=== PATIENT | female | born 1990 | race Caucasian/White ===

== ENCOUNTER 2017-11-05 15:55 | Emergency (ER) | payer OTHER ==
[~2017-11-05] VITALS: Ht 170.2 cm; Wt 52.3 kg
[2017-11-05 16:19] VITALS: Ht 170.2 cm; Wt 52.3 kg
[2017-11-05 17:41] LABS: BASO % 0.4 %; BASO ABS # 0.04 K/uL (0-0.2); COMPLETE YES; EOS % 1.1 %; HEMATOCRIT 42.4 % (37-47); IG% 0.1 %; LYMPH % 27.6 %; LYMPH ABS # 2.49 K/uL (1.2-3.4); MEAN CELL VOLUME 94.9 fL (80-100); MEAN CORPUSCULAR HEMOGLOBIN 32.2 pg (25-34); MEAN PLATELET VOLUME 9.3 fL (7.4-10.4); NEUT % 65.8 %; PLATELET COUNT 271 K/uL (130-400); RED BLOOD COUNT 4.47 M/uL (4.2-5.4); WHITE BLOOD COUNT 9.02 K/uL (4.8-10.8)
[2017-11-05 17:59] LABS: BUN/CREATININE RATIO 10.9 (10-20); CALCIUM 9.4 mg/dl (8.5-10.1); CREATININE 0.82 mg/dl (0.60-1.20); POTASSIUM 3.5 mmol/L (3.5-5.1)
[2017-11-05 18:03] LABS: ALB/GLOB RATIO 1.2 (0.9-2)
--- NOTE | 2017-11-05 18:11 | EMERGENCY ROOM VISIT NOTE ---
History First contact with patient: 17:02 Chief Complaint: OTHER COMPLAINT Stated Complaint: TNDR BREASTS W/ DISCHARGE, ABN PERIOD DISCHARGE History of Present Illness The patient is a 27 year old female who presents to the Emergency Room with complaints of discharge from her breasts and vaginal discharge that has been going on for several months. The patient finished breast-feeding in December of this year. She has had intermittent discharge and breast pain left breast greater than right since. She noticed some wetness in her bra intermittently. She denies any fever or chills. She is also able to express discharge from the left breast greater than right. She notes that it is milky in nature. 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 She also notes abnormal, more frequent periods for the last 3 months. Her last menstrual period was last week. She now notes some lucas colored discharge. This has also been intermittent over the last several months. She denies any pelvic pain/abdominal cramping. She is sexually active with one partner. She denies any dyspareunia. Review of Systems 10 system review performed and negative unless noted in HPI or below Past Medical/Surgical History Medical Problems: (1) Chronic low back pain Family History Hypertension Social History Smoking Status: Never Smoker Alcohol Use: occasionally Drug Use: none Marital Status: single Housing Status: lives with family Occupation Status: student Current/Historical Medications No Active Prescriptions or Reported Meds Physical Exam Vital Signs Date Time Temp Pulse Resp B/P (MAP) Pulse Ox O2 Delivery O2 Flow Rate FiO2 11/05/17 20:44 37.0 77 16 107/59 98 11/05/17 19:38 77 16 107/59 98 Room Air 11/05/17 16:19 37.0 89 20 148/91 96 Room Air Physical Exam VITALS: Vitals are noted on the nurse's note and reviewed by myself. Vital signs stable. GENERAL: 27-year-old female, in no acute distress, nondiaphoretic, well- developed well-nourished. SKIN: The skin was without rashes, erythema, edema, or bruising. HEAD: Normocephalic atraumatic. NECK: Supple without nuchal rigidity. No JVD. HEART: Regular rate and rhythm without murmurs gallops or rubs. LUNGS: Clear to auscultation bilaterally without wheezes, rales or rhonchi. No accessory muscle use. Breast exam: Approximately 0.5, cystic, circular, mobile mass noted at approximately 11:00 in the right breast. No masses noted in the left breast. Small amount of discharge, cream-colored in appearance from the left nipple. Small amount of clear discharge expressed from the right nipple. ABDOMEN: Positive bowel sounds x 4.Soft, nontender, without organomegaly. No guarding or rebound tenderness. : External genitalia free of any lesions. Speculum exam reveals a moderate amount of lucas colored discharge in the vaginal vault. Cervix is pink. The os is closed. Small amount of blood noted. Bimanual exam reveals no cervical motion tenderness. No masses on the adnexa bilaterally. No masses in the uterus palpated. MUSCULOSKELETAL: No muscle atrophy, erythema, or edema noted. Full range of motion in all extremities. No tenderness to palpation. Normal gait. Strength 5/5 throughout. NEURO: Patient was alert and oriented to person place and time. Normal sensation to touch. No focal neurological deficits. Medical Decision & Procedures ER Provider Diagnostic Interpretation: Pelvic ultrasound Patient Name: JULITO SMALLS Unit Number: [id number] Dictated: 11/05/171908 Transcribed: 11/05/171908 EV Printed Date/Time: [~ rep prt dt]/[~ rep prt tm] [~ rep ct labl] - [~ rep ct ivnm] [facility] [place] [address] Dictated: 11/05/171908 Transcribed: 11/05/171908 EV Printed Date/Time: [~ rep prt dt]/[~ rep prt tm] [~ rep ct labl] - [~ rep ct ivnm] IMPRESSION: 1. No acute sonographic abnormality is identified in the pelvis noting a retroverted uterus. 2. There is trace and likely physiologic free fluid in the cul-de-sac. Electronically signed by: Jigar Woodruff M.D. 11/05/2017 7:11 PM Dictated Date/Time: 11/05/2017 7:09 PM The status of this report is Signed. Draft = Not yet reviewed or approved by Radiologist. Signed = Reviewed and approved by Radiologist. <AttendingPhy></AttendingPhy> <FamilyPhy>No Doctor, Assigned</FamilyPhy> < PrimaryPhy>No Doctor, Assigned</PrimaryPhy> <UnitNumber>[id number]</UnitNumber> <VisitNumber>[id number]</VisitNumber> <PatientName>JULITO SMALLS</ PatientName> <DateOfBirth>1990</DateOfBirth> <Location>[facility]</Location> < ServiceDate>11/05/17</ServiceDate> <MNE>ESINDI</MNE> <OrderingPhy>Lucas Kraus M.D.</OrderingPhy> <OrderingPhyMNE>f rep ord dr guaman</OrderingPhyMNE> < DictatingPhyMNE>f rep dict dr guaman</DictatingPhyMNE> <CCListMNE>f rep ct sridhare</ CCListMNE> <AdmittingPhyMNE>f pt admit dr guaman</AdmittingPhyMNE> <AttendingPhyMNE >f pt attend dr guaman</AttendingPhyMNE> <ConsultingPhyMNE>f pt consult dr guaman</ConsultingPhyMNE> <FamilyPhyMNE>f pt fam dr guaman</FamilyPhyMNE> <OtherPhyMNE>f pt other dr guaman</OtherPhyMNE> < PrimaryPhyMNE>f pt prim care dr guaman</PrimaryPhyMNE> <ReferringPhyMNE>f pt referring dr guaman</ReferringPhyMNE> Laboratory Results 11/05/17 17:10 Red Blood Count 4.47, Mean Corpuscular Volume 94.9, Mean Corpuscular Hemoglobin 32.2, Mean Corpuscular Hemoglobin Concent 34.0, Mean Platelet Volume 9.3, Neutrophils (%) (Auto) 65.8, Lymphocytes (%) (Auto) 27.6, Monocytes (%) (Auto) 5.0, Eosinophils (%) (Auto) 1.1, Basophils (%) (Auto) 0.4, Neutrophils # (Auto) 5.93, Lymphocytes # (Auto) 2.49, Monocytes # (Auto) 0.45, Eosinophils # (Auto) 0.10, Basophils # (Auto) 0.04 11/05/17 17:10 Test 11/05/17 17:10 11/05/17 20:07 White Blood Count 9.02 K/uL (4.8-10.8) Red Blood Count 4.47 M/uL (4.2-5.4) Hemoglobin 14.4 g/dL (12.0-16.0) Hematocrit 42.4 % (37-47) Mean Corpuscular Volume 94.9 fL (80-100) Mean Corpuscular Hemoglobin 32.2 pg (25-34) Mean Corpuscular Hemoglobin Concent 34.0 g/dl (32-36) Platelet Count 271 K/uL (130-400) Mean Platelet Volume 9.3 fL (7.4-10.4) Neutrophils (%) (Auto) 65.8 % Lymphocytes (%) (Auto) 27.6 % Monocytes (%) (Auto) 5.0 % Eosinophils (%) (Auto) 1.1 % Basophils (%) (Auto) 0.4 % Neutrophils # (Auto) 5.93 K/uL (1.4-6.5) Lymphocytes # (Auto) 2.49 K/uL (1.2-3.4) Monocytes # (Auto) 0.45 K/uL (0.11-0.59) Eosinophils # (Auto) 0.10 K/uL (0-0.5) Basophils # (Auto) 0.04 K/uL (0-0.2) RDW Standard Deviation 44.3 fL (36.4-46.3) RDW Coefficient of Variation 12.9 % (11.5-14.5) Immature Granulocyte % (Auto) 0.1 % Immature Granulocyte # (Auto) 0.01 K/uL (0.00-0.02) Anion Gap 5.0 mmol/L (3-11) Est Creatinine Clear Calc Drug Dose 86.6 ml/min Estimated GFR () 115.3 Estimated GFR (Non- 99.5 BUN/Creatinine Ratio 10.9 (10-20) Calcium Level 9.4 mg/dl (8.5-10.1) Total Bilirubin 0.3 mg/dl (0.2-1) Aspartate Amino Transf (AST/SGOT) 16 U/L (15-37) Alanine Aminotransferase (ALT/SGPT) 30 U/L (12-78) Alkaline Phosphatase 96 U/L (45-117) Total Protein 8.6 gm/dl (6.4-8.2) Albumin 4.6 gm/dl (3.4-5.0) Globulin 4.0 gm/dl (2.5-4.0) Albumin/Globulin Ratio 1.2 (0.9-2) Thyroid Stimulating Hormone (TSH) 1.320 uIu/ml (0.300-4.500) Human Chorionic Gonadotropin, Qual NEG (NEG) Date/Time Source Procedure Growth Status 11/05/17 20:07 Cervix Swab Trichomonas Preparation - Final Complete ED Course Patient was seen and examined Vital signs including blood pressure were reviewed medications list was verified with patient Labs were obtained, and a saline lock was established A pelvic ultrasound was performed The workup was reviewed with the patient. She voiced understanding. She was comfortable being discharged home. I reviewed discharge instructions the patient. They voiced understanding and had no further questions. Of note, the patient tested positive for Trichomonas. The charge nurse was notified. She will be notified in the morning. A prescription for Flagyl 500 mg twice daily for 7 days will be called into her pharmacy. Medical Decision Differential diagnosis: Abnormal vaginal bleeding, menorrhagia, metrorrhagia, uterine fibroids, endometrial polyps, thyroid abnormality, breast mass, mastitis , PID This patient is a 27-year-old female that presents to the emergency department with breast discomfort, slight discharge left greater than right and vaginal discharge. She has also had abnormal vaginal bleeding. On exam, she had a small, circular palpable cyst at approximately 11:00 of the left breast. She had a small amount of discharge expressible from the nipples bilaterally. There are no signs of induration. The discharge was not purulent in nature. No significant tenderness. I do not suspect mastitis. Cultures of the discharge were taken. Her pelvic exam reveals a moderate amount of discharge. No foul odor was noted. The cervix does not appear erythematous or friable. Cultures were taken. A pelvic ultrasound did not show any acute abnormalities. After the patient was discharged, it was noted that she tested positive for Trichomonas. A note was made in her chart. She will be notified tomorrow morning. A prescription for Flagyl will also be called in. The patient did not have any cervical motion tenderness. I do not suspect PID. She will be informed that she needs to have her sexual partners treated. She will need to abstain from sexual activity until she finishes the course, and follows up with her doctor. This chart was completed in part utilizing [employer] Speech Voice Recognition software. Attempts were made to minimize the grammatical errors, random word insertions, pronoun errors and incomplete sentences. Any formal questions or concerns about the content, text or information contained within the body of this dictation should be directly addressed to the provider for clarification. Impression Primary Impression: Breast pain Additional Impression: Vaginal discharge Departure Information Dispostion Home / Self-Care Condition GOOD Prescriptions No Active Prescriptions or Reported Meds Referrals No Doctor, Assigned (PCP) Zeb Escobar MD Patient Instructions My [facility] Additional Instructions You were evaluated in the emergency department for discharge and breast pain. No significant abnormalities were noted on the ultrasound. Please take ibuprofen 600 mg every 8 hours as needed for discomfort You can try applying warm compresses for the breast pain. Please follow-up with your ONCOLOGY REP SPECIALIST as scheduled. If there are any abnormalities with your workup, you will be notified by phone Please do not hesitate to return to the emergency department with any new, worsening or concerning symptoms Problem Qualifiers
[2017-11-05 18:26] LABS: PREG INTERNAL NEGATIVE QC NEG CLEAR BACKGROUND; PREG INTERNAL POSITIVE QC POS CONTROL LINE
--- NOTE | 2017-11-05 19:13 | DIAGNOSTIC IMAGING REPORT ---
ULTRASOUND OF THE PELVIS CLINICAL HISTORY: Vaginal bleeding. COMPARISON STUDY: Pelvic CT dated 09/11/2015. TECHNIQUE: Real-time, grayscale, and color flow sonography of the pelvis is performed both transabdominally and endovaginally. Images are reviewed in the transverse and longitudinal planes. FINDINGS: Uterus: The retroverted uterus is normal in size and echotexture, measuring 8.3 x 4.2 x 5.1 cm. A nabothian cyst is incidentally noted in the cervix. Endometrium: The endometrium is normal in appearance, and the endometrial stripe is normal in thickness measuring up to 0.8 cm. Trace fluid is noted in the endometrial canal. Ovaries: The ovaries are normal in size and morphology. The right ovary measures 1.8 x 1.3 x 1.6 cm and the left ovary measures 4.2 x 1.9 x 2.8 cm. Numerous small follicles are seen bilaterally. Normal Doppler waveforms are shown within both ovaries. Pelvis: There is trace free fluid in the cul-de-sac. No concerning adnexal lesion is seen. IMPRESSION: 1. No acute sonographic abnormality is identified in the pelvis noting a retroverted uterus. 2. There is trace and likely physiologic free fluid in the cul-de-sac. Electronically signed by: Jigar Woodruff M.D. 11/05/2017 7:11 PM Dictated Date/Time: 11/05/2017 7:09 PM
[2017-11-05 20:44] VITALS: BP 107/59; PULSE 77; TEMP 37; O2SAT 98
--- NOTE | 2017-11-07 18:59 | Pharmacy Progress Note ---
ED Pharmacist Culture FollowUp Date of Service: Nov 07, 2017. Called patient regarding positive trichomonas. No answer - left message requesting call back and provided ED phone #.
[2017-11-08 02:42] LABS: CHLAMYDIA TRACH RNA*** NOT DETECTED (NOT DETECTED); GC (NEIS GONORRHOEAE)RNA** NOT DETECTED (NOT DETECTED)
== END 2017-11-05 20:45 | disposition home or self-care (01) ==
LOC: C.EDB 16:00 → C.EDA 20:45
DX: N64.4 Mastodynia (principal); N89.8 Other specified noninflammatory disorders of vagina; G89.29 Other chronic pain; M54.9 Dorsalgia, unspecified; Z82.49 Family history of ischemic heart disease and other diseases of the circulatory system

== ENCOUNTER 2017-12-14 19:23 | Emergency (ER) | payer OTHER ==
[~2017-12-14] VITALS: Ht 170.2 cm; Wt 54.7 kg
[2017-12-14 19:26] VITALS: BP 127/74; PULSE 94; TEMP 36.8; O2SAT 98; Ht 170.2 cm; Wt 54.7 kg
[2017-12-14] MEDS ORDERED: XYLOCAINE 1%/SOD BICARB 20 ML VIAL INFIL ONE (19:45)
[2017-12-14] MEDS ORDERED: CEPH500C PO (20:17)
[2017-12-14] MEDS ORDERED: CEPHALEXIN 500MG HOME PACK 1 EA BTL PO ONE (20:30)
--- NOTE | 2017-12-14 20:30 | EMERGENCY ROOM VISIT NOTE ---
History First contact with patient: 19:39 Chief Complaint: LACERATION/CUT (SUT/DERMABOND) Stated Complaint: CUT RIGHT INDEX FINGER Nursing Triage Summary: pt cut right index finger History of Present Illness The patient is a 27 year old female who presents to the Emergency Room with complaints of a laceration to her right ring finger. The patient reports that their front door has low clearance between the doorknob and window panel. You have to squeeze your hand between the doorknob and window to open the door. The patient reports that the glass shattered, and cut her hand. She does report moderate bleeding from the wound, and rates her discomfort a 5 out of 10 on my exam. The patient believes that her tetanus immunization is up-to-date within the past 10 years. The patient is [id number]. Review of Systems 10 system review was performed and was negative except for pertinent positives and negatives as indicated in history of present illness Past Medical/Surgical History Medical Problems: (1) Chronic low back pain (2) Tobacco Use Disorder Surgical Problems: (1) No history of previous surgery Family History Hypertension Social History Smoking Status: Former Smoker Alcohol Use: occasionally Drug Use: none Marital Status: single Housing Status: lives with family Occupation Status: student Current/Historical Medications Scheduled Cephalexin Monohydrate (Keflex), 500 MG PO TID Physical Exam Vital Signs Date Time Temp Pulse Resp B/P (MAP) Pulse Ox O2 Delivery O2 Flow Rate FiO2 18 19:26 36.8 94 19 127/74 98 Room Air Physical Exam CONSTITUTIONAL: Healthy and well nourished. Alert and oriented X 3 with positive affect. HEENT: Normocephalic, atraumatic. Pupils equal, round and reactive. NECK: Full active range of motion without discomfort. MUSCULOSKELETAL: Examination of the right ring finger shows an oval avulsion laceration over the dorsal PIP joint with moderate bleeding. The patient is very thin, and therefore does not have much tissue. The extensor tendon is exposed. I do not visualize any obvious tendon laceration. Capillary refill is less than 2 seconds. The oval laceration avulsion measures approximately 6 x 9 mm INTEGUMENTARY: No rash or other significant dermatologic conditions noted. NEUROLOGIC: No focal neurologic deficits noted. Right ring finger is sensory intact. Medical Decision & Procedures Medications Administered Medications (Trade) Dose Ordered Sig/Yamilet Route Start Time Stop Time Status Last Admin Dose Admin Cephalexin Monohydrate (Keflex 500MG Home Pack) 1 homepack NOW ONCE PO 12/14/17 20:30 12/14/17 20:31 DC 12/14/17 20:23 1 HOMEPACK Procedure Wound and laceration evaluation was performed under local anesthesia after receiving verbal consent from the patient. Using buffered 1% lidocaine without epinephrine, good local anesthesia was administered. The peripheral tissue was cleansed with iodine, then the wound was copious a pressure irrigated with approximately 150 mL of normal saline. As indicated in the physical exam section, the patient has an oval avulsion laceration that uncovers the extensor tendon. The patient did have some active bleeding from the distal laceration margin. I attempted to use a 5-0 Vicryl simple interrupted suture, which did provide moderate hemostasis. The tendon was observed through full course of flexion and extension without any obvious laceration. I explained to the patient that the tendon must be covered, and in order to do so, the tissue will need a revision repair. For now, the wound was grossly approximated using 5-0 nylon simple interrupted sutures, and a metal splint with bacitracin dressing was applied with the finger in full extension. ED Course Patient history and physical exam were performed. Nurse's notes were reviewed. Vital signs were reviewed and were normal. I did ask our Manager [employer] to review the patient's office notes, and determined that her last tetanus booster was administered in 2011. As indicated in the previous sections, I am concerned for exposure of the extensor tendon secondary to soft tissue avulsion over the dorsal PIP joint. The wound was grossly approximated in order to provide coverage of the tendon. The patient was instructed to follow-up with Dr. Joya, hand surgeon for further tissue revision for better closure. She will also need to call her PCP for a referral. The patient was dispensed a home pack and prescription for Keflex antibiotics. She was instructed to avoid getting the wound wet. She was encouraged to keep the splint in place to keep the finger in a straight position. Ibuprofen and Tylenol as needed for pain. The patient was happy with plan of care, voiced understanding of all discharge instructions, and denied any pain at the time of discharge. Medical Decision Medication Reconcilliation Current Medication List: was personally reviewed by me Blood Pressure Screening Patient's blood pressure: Normal blood pressure Impression Primary Impression: Laceration of right ring finger with complication Departure Information Dispostion Home / Self-Care Prescriptions Cephalexin Monohydrate (Keflex) 500 Mg Cap 500 MG PO TID for 7 Days, #21 CAP Prov: Josué Raza PA 12/14/17 Referrals Jimmy Joya MD Forms HOME CARE DOCUMENTATION FORM, IMPORTANT VISIT INFORMATION Patient Instructions My [facility] Additional Instructions Keep wound covered with an antibiotic ointment and dressing. Wear metal splint to keep the finger in a straight position. Ice and elevate for swelling and pain. Ibuprofen 600 mg and/or Tylenol 500 mg every 8 hours as needed for pain. Complete Keflex antibiotics as prescribed. Follow-up with [facility] (Dr. Joya, hand surgeon) for further reevaluation and management - call tomorrow morning for an appointment. When you call their office, tell them that you have "a laceration that uncovered a tendon with limited skin coverage." You will also need to call your family doctor for a referral to [facility].
== END 2017-12-14 20:32 | disposition home or self-care (01) ==
LOC: C.EDB 19:24 → C.EDD 20:32
DX: S61.214A Laceration without foreign body of right ring finger without damage to nail, initial encounter (principal); W25.XXXA Contact with sharp glass, initial encounter; Z87.891 Personal history of nicotine dependence; Z82.49 Family history of ischemic heart disease and other diseases of the circulatory system

== ENCOUNTER 2018-02-23 21:00 | Emergency (ER) | payer OTHER ==
[~2018-02-23] VITALS: Ht 172.7 cm; Wt 56.8 kg
[2018-02-23 21:10] VITALS: TEMP 37.1; Ht 172.7 cm; Wt 56.8 kg
[2018-02-23] MEDS ORDERED: ACETAMINOPHEN 500 MG TAB PO STA (21:32)
[2018-02-23] MEDS ORDERED: SODIUM CHLORIDE 0.9% 1000ML 1,000 ML IV STA ×2 (21:32→23:54)
[2018-02-23] MEDS ORDERED: ONDANSETRON INJ 2 MG/ML 2 ML VIAL IV STA (21:32)
[2018-02-23 21:58] VITALS: O2SAT 99
[2018-02-23 22:08] LABS: BASO % 0.1 %; BASO ABS # 0.01 K/uL (0-0.2); HEMATOCRIT 27.4 % (37-47); HEMOGLOBIN 9.7 g/dL (12.0-16.0); IG# 0.03 K/uL (0.00-0.02); LYMPH ABS # 1.91 K/uL (1.2-3.4); MEAN CELL VOLUME 89.3 fL (80-100); MEAN CORPUSCULAR HEMOGLOBIN 31.6 pg (25-34); MEAN CORPUSCULAR HGB CONC 35.4 g/dl (32-36); MEAN PLATELET VOLUME 9.2 fL (7.4-10.4); MONO % 5.4 %; NEUT % 81.3 %; NEUT ABS # 11.99 K/uL (1.4-6.5); PLATELET COUNT 266 K/uL (130-400); RED CELL DISTRIBUTION WIDTH CV 12.5 % (11.5-14.5); RED CELL DISTRIBUTION WIDTH SD 40.5 fL (36.4-46.3); WHITE BLOOD COUNT 14.74 K/uL (4.8-10.8)
[2018-02-23 22:31] LABS: CALCIUM 8.6 mg/dl (8.5-10.1); CREATININE 0.65 mg/dl (0.60-1.20); POTASSIUM 3.7 mmol/L (3.5-5.1)
[2018-02-24 01:01] VITALS: BP 90/71; PULSE 112; O2SAT 100
--- NOTE | 2018-02-24 01:04 | EMERGENCY ROOM VISIT NOTE ---
History First contact with patient: 21:22 Chief Complaint: ABDOMINAL PAIN Stated Complaint: JUST FOUND OUT I WAS PREG,POSSIBLE MISCARRIAGE Nursing Triage Summary: patient states pain started yesterday evening. History of Present Illness The patient is a 27 year old female who presents to the Emergency Room with complaints of suprapubic cramping for the past 24 hours shortly after having intercourse with her fianc last night. She denies from intercourse. Patient then took a test today and was positive. Last menstrual cycle was January 14. She has had 3 prior pregnancies and 2 living children. She had a spontaneous in the past. No history of RhoGam. She states her blood type is O+. Patient denies vaginal bleeding, vaginal discharge, vaginal rashes , urinary symptoms, chest pain, dyspnea, fever, chills, cough, congestion. Patient feels anxious. Review of Systems An 10 system review of systems was completed with positives and pertinent negatives listed in the HPI. Past Medical/Surgical History Medical Problems: (1) Chronic low back pain (2) Tobacco Use Disorder Surgical Problems: (1) No history of previous surgery Family History Hypertension Social History Smoking Status: Never Smoker Alcohol Use: occasionally Drug Use: none Marital Status: in relationship Housing Status: lives with family Occupation Status: employed Current/Historical Medications No Active Prescriptions or Reported Meds Physical Exam Vital Signs Date Time Temp Pulse Resp B/P (MAP) Pulse Ox O2 Delivery O2 Flow Rate FiO2 02/24/18 00:32 102 02/23/18 23:24 113 18 118/68 98 Room Air 02/23/18 22:05 130 02/23/18 21:58 119 22 116/69 98 Room Air 02/23/18 21:58 99 Room Air 02/23/18 21:10 37.1 158 18 117/72 99 Room Air Physical Exam VITALS: Vitals are noted on the nurse's note and reviewed by myself. Vital signs tachycardic. GENERAL: Pleasant female anxious appearing, in no acute distress, nondiaphoretic , well-developed well-nourished. SKIN: The skin was without rashes, erythema, edema, or bruising. There is no tenting of the skin. Capillary reflex less than 2 seconds. HEAD: Normocephalic atraumatic. EARS: External auditory canals clear, tympanic membranes pearly wolfe without erythema or effusion bilaterally. EYES: Pupils equal round and reactive to light and accommodation. Conjunctivae without injection, sclerae without icterus. Extraocular movements intact. NOSE: Patent, turbinates without inflammation or discharge. MOUTH: Mucous membranes moist. Pharynx without erythema or exudate. Uvula midline. Airway patent. Tongue does not deviate. NECK: Supple without nuchal rigidity. No lymphadenopathy. No thyromegaly. Cervical spine is nontender. No JVD. HEART: Regular rate and rhythm without murmurs gallops or rubs. LUNGS: Clear to auscultation bilaterally without wheezes, rales or rhonchi. No retractions or accessory muscle use. ABDOMEN: Positive bowel sounds x 4. Normal tympanic percussion. Soft, minimally tender suprapubic region, without masses or organomegaly. Soto sign negative. No guarding or rebound tenderness. No CVA tenderness MUSCULOSKELETAL: No muscle atrophy, erythema, or edema noted. NEURO: Patient was alert and oriented to person place and time. Normal sensation to light and sharp touch. No focal neurological deficits. Medical Decision & Procedures Laboratory Results 02/23/18 21:50 Red Blood Count 3.07, Mean Corpuscular Volume 89.3, Mean Corpuscular Hemoglobin 31.6, Mean Corpuscular Hemoglobin Concent 35.4, Mean Platelet Volume 9.2, Neutrophils (%) (Auto) 81.3, Lymphocytes (%) (Auto) 13.0, Monocytes (%) (Auto) 5.4, Eosinophils (%) (Auto) 0.0, Basophils (%) (Auto) 0.1, Neutrophils # (Auto) 11.99, Lymphocytes # (Auto) 1.91, Monocytes # (Auto) 0.80, Eosinophils # (Auto) 0.00, Basophils # (Auto) 0.01 02/23/18 21:50 Test 02/23/18 21:50 White Blood Count 14.74 K/uL (4.8-10.8) Red Blood Count 3.07 M/uL (4.2-5.4) Hemoglobin 9.7 g/dL (12.0-16.0) Hematocrit 27.4 % (37-47) Mean Corpuscular Volume 89.3 fL (80-100) Mean Corpuscular Hemoglobin 31.6 pg (25-34) Mean Corpuscular Hemoglobin Concent 35.4 g/dl (32-36) Platelet Count 266 K/uL (130-400) Mean Platelet Volume 9.2 fL (7.4-10.4) Neutrophils (%) (Auto) 81.3 % Lymphocytes (%) (Auto) 13.0 % Monocytes (%) (Auto) 5.4 % Eosinophils (%) (Auto) 0.0 % Basophils (%) (Auto) 0.1 % Neutrophils # (Auto) 11.99 K/uL (1.4-6.5) Lymphocytes # (Auto) 1.91 K/uL (1.2-3.4) Monocytes # (Auto) 0.80 K/uL (0.11-0.59) Eosinophils # (Auto) 0.00 K/uL (0-0.5) Basophils # (Auto) 0.01 K/uL (0-0.2) RDW Standard Deviation 40.5 fL (36.4-46.3) RDW Coefficient of Variation 12.5 % (11.5-14.5) Immature Granulocyte % (Auto) 0.2 % Immature Granulocyte # (Auto) 0.03 K/uL (0.00-0.02) Urine Color YELLOW Urine Appearance CLEAR (CLEAR) Urine pH 6.5 (4.5-7.5) Urine Specific [place] 1.006 (1.000-1.030) Urine Protein NEG (NEG) Urine Glucose (UA) NEG (NEG) Urine Ketones NEG (NEG) Urine Occult Blood NEG (NEG) Urine Nitrite NEG (NEG) Urine Bilirubin NEG (NEG) Urine Urobilinogen NEG (NEG) Urine Leukocyte Esterase NEG (NEG) Anion Gap 8.0 mmol/L (3-11) Est Creatinine Clear Calc Drug Dose 118.6 ml/min Estimated GFR () 143.0 Estimated GFR (Non- 123.4 BUN/Creatinine Ratio 16.0 (10-20) Calcium Level 8.6 mg/dl (8.5-10.1) Human Chorionic Gonadotropin, Quant 1153 mIU/mL Medications Administered Medications (Trade) Dose Ordered Sig/Yamilet Route Start Time Stop Time Status Last Admin Dose Admin Sodium Chloride 1,000 ml @ 999 mls/hr Q1H1M STAT IV 02/23/18 21:32 02/23/18 22:32 DC 02/23/18 22:02 999 MLS/HR Ondansetron HCl (Zofran Inj) 4 mg NOW STAT IV 02/23/18 21:32 02/23/18 21:34 DC 02/23/18 22:02 4 MG Acetaminophen (Tylenol Tab) 1,000 mg NOW STAT PO 02/23/18 21:32 02/23/18 21:34 DC 02/23/18 22:03 1,000 MG Sodium Chloride 1,000 ml @ 999 mls/hr Q1H1M STAT IV 02/23/18 23:54 02/24/18 00:54 DC 02/23/18 23:54 999 MLS/HR ED Course Prior records/ancillary studies reviewed. Triage Nursing notes reviewed. Additional history obtained from the family. The patient's history was concerning for positive home test with suprapubic abdominal pain. Differential diagnosis: Etiologies such as ectopic , salpingitis, ,incomplete , septic , ruptured ovarian cyst, ovarian torsion, Mittelschmerz, endometritis, dysmenorrhea, appendicitis, PID, As well as others were entertained. Physical examination: As above. Vitals signs revealed tachycardic. ER treatment provided: IV fluids, Zofran, Tylenol On reassessment the patient felt better. Diagnostic interpretation by me: Mild anemia and no other worrisome electrolyte abnormalities. Urinalysis revealed no sign of infection. Quantitative hCG was 1100 Imaging studies: Ultrasound as above US OB/ENDOVAG: Tiny round anechoic lesion seen within the endometrium which may represent an early IUP, which is too small to accurately date. Moderate amount of free fluid in the pelvis which may represent blood products. The right ovary was not visualized. Left ovary demonstrates small follicles. Given the amount of fluid in the pelvis, findings may represent a rupture cyst/follicle with ectopic cannot be excluded. Correlate with beta HCG. Radiologist: William Monge MD This appears to be consistent with with most likely a ruptured ovarian cyst. Patient felt much better after being medicated as above. Her anxiety lessened and her heart rate did improve. Patient did not have an acute abdomen on exam. [facility] She is advised to follow-up within the next day or 2 for reevaluation and repeat, testing. She is advised to start a . Patient states she suffers from morning sickness and was advised to take B6 and to eat epi-containing products. Patient was advised to return to the ER meaty for abdominal pain, fevers, bleeding, worsening signs or symptoms or as needed. Patient had no vaginal bleeding on exam. She is well -appearing. She tolerated fluids and ate a meal without difficulties here in the ER. By the evaluation outlined above emergent etiologies such as bleeding dyscrasia, ectopic , trauma, as well as others were deemed relatively unlikely. The pt informed about the findings as listed above. All questions were answered and pleased with the treatment. Return instructions were outlined and the patient was discharged in stable condition. Case reviewed with my attending Referral: The patient was referred to MIXING TUMBLER OPERATOR for follow-up in 2 to 3 days for a recheck of her current condition. The chart was completed utilizing [email or web address] Speech voice recognition software. Grammatical errors, random word insertions, pronoun errors, and incomplete sentences are an occassional consequence of this system due to software limitations, ambient noise, and hardware issues. Any formal questions or concerns about the content, text, or information contained within the body of this dictation should be directly addressed to the physician assistant store director for clarification. Medical Decision As above Medication Reconcilliation Current Medication List: was personally reviewed by me Blood Pressure Screening Patient's blood pressure: Normal blood pressure Impression Primary Impression: Ruptured ovarian cyst Additional Impressions: Pelvic cramping Departure Information Dispostion Home / Self-Care Condition GOOD Prescriptions No Active Prescriptions or Reported Meds Forms HOME CARE DOCUMENTATION FORM, Work Instructions, Return To Work: 2 days IMPORTANT VISIT INFORMATION Patient Instructions Preg 1st Trimester, Cyst Ruptured Ovarian Tx, My [facility] Additional Instructions You need to start taking a . You are anemic today. Do not take any other medications until cleared by your MIXING TUMBLER OPERATOR as you are currently . Rest. Stay well hydrated. No strenuous activity or intercourse until cleared by MIXING TUMBLER OPERATOR. Recommend that you eat foods high in epi such as epi candy and take B6 for morning sickness. Acetaminophen(Tylenol) may be used for fever or pain. Use 1000mg every six hours as needed. Avoid using more than 3000mg in a 24 hour period. Rest and drink plenty of fluids as tolerated. Continue current medications. Return to the ER immediately for heavy vaginal bleeding, abdominal pain, vomiting, fevers, chest pains, difficulty breathing, worsening of your condition , or as needed. Follow up with your MIXING TUMBLER OPERATOR in 2-3 days for a recheck of your current condition. Work Instructions Return To Work: 2 days Problem Qualifiers
--- NOTE | 2018-02-24 07:26 | DIAGNOSTIC IMAGING REPORT ---
TRANSVAGINAL, <14 WKS SINGLE CLINICAL HISTORY: 27 years-old Female presenting with +hcg pain, , last menstrual period 01/17/2018, severe pelvic pain, no bleeding. TECHNIQUE: Real-time grayscale and M-mode Doppler ultrasound imaging of the pelvis was performed first using a transabdominal probe and subsequently transvaginal for better characterization. Color and spectral Doppler ultrasound imaging of the adnexa was also performed. COMPARISON: 11/05/2017. FINDINGS: Uterus: Possible gestational sac noted in the endometrial cavity. 3 x 3 x 3 mm ovoid cystic focus in the endometrium without evidence of a yolk sac or pole. Anteverted uterus. Normal amniotic fluid volume. Posterior placental implantation. No perigestational fluid to suggest hemorrhage. Cervix long and closed. Right adnexum: Right ovary not visualized. Left adnexum: Left ovary may contain a corpus luteum. Left ovary measures 3.0 x 4.9 x 2.3 cm. Normal color Doppler flow and arterial and venous waveforms within the ovarian parenchyma. Other: Moderate to large volume complex ascites concerning for hemorrhage. Hypoechoic irregular material in the cul-de-sac raises concern for clot as this does not conform to bowel to suggest stool. IMPRESSION: 1. Moderate to large volume complex ascites concerning for hemoperitoneum. This is greater than expected for a ruptured cyst, although this may be the etiology given the presence of a classic appearing early gestational sac in the endometrium. The primary alternative diagnosis is a ruptured ectopic , which is considered less likely. The degree of hemoperitoneum warrants close clinical observation with trending of H&H to ensure no further bleeding. Continued trending beta hCG recommended. These findings were discussed with Dr. Briseno by Dr. Demarco on 02/24/2018 7:19 AM. Electronically signed by: Silas Demarco M.D. 02/24/2018 7:25 AM Dictated Date/Time: 02/24/2018 6:55 AM
--- NOTE | 2018-02-24 07:40 | EMERGENCY ROOM VISIT NOTE ---
ED Visit Note Received a phone call at 7:20 AM in the morning from Dr. Silas Demarco; radiology following reviewing ultrasound performed overnight on Barbie. He is concerned secondary to the moderate to large amount of hemoperitoneum and having her H&H rechecked. He sees a clear IUP and does not believe that this is a ruptured ectopic . Upon review of her chart previous hemoglobins were 13-14. Last night it was 9. Patient was slightly persistently tachycardic while here in the ER. Dw/ OB Dr. Valles and will call back for repeat eval.
[2018-02-24] MEDS ORDERED: FENTANYL CITRATE INJ 50 MCG/1 ML 2 ML VIAL ONE ×5 (15:02→18:17)
[2018-02-24] MEDS ORDERED: MIDAZOLAM HCL 1 MG/ML 2ML VIAL ONE (15:02)
[2018-02-24] MEDS ORDERED: CEFAZOLIN SOD 1 GM VIAL ONE (17:18)
[2018-02-24] MEDS ORDERED: LIDOCAINE HCL 2% 2 ML VIAL (20MG/ML) ONE (17:21)
[2018-02-24] MEDS ORDERED: DEXAMETHASONE SOD INJ 4 MG/ML VIAL ONE (17:21)
[2018-02-24] MEDS ORDERED: ONDANSETRON INJ 2 MG/ML 2 ML VIAL ONE (17:22)
[2018-02-24] MEDS ORDERED: ESMOLOL HCL 10 MG/ML 10 ML VIAL ONE (17:22)
[2018-02-24] MEDS ORDERED: PROPOFOL IV EMULSION 10 MG/ML 20 ML VIAL IV ONE (17:22)
[2018-02-24] MEDS ORDERED: ROCURONIUM BROMIDE 10 MG/ML 5 ML VIAL IV ONE ×2 (17:23)
[2018-02-24] MEDS ORDERED: GLYCOPYRROLATE INJ 0.2 MG/ML VIAL ONE (18:04)
[2018-02-24] MEDS ORDERED: NEOSTIGMINE METHYLSULFATE 5 MG/5 ML SYR ONE (18:04)
== END 2018-02-24 01:02 | disposition home or self-care (01) ==
LOC: C.EDB 21:02
DX: O34.81 Maternal care for other abnormalities of pelvic organs, first trimester (principal); N83.202 Unspecified ovarian cyst, left side; M54.5 Low back pain; G89.29 Other chronic pain; F41.9 Anxiety disorder, unspecified; F17.210 Nicotine dependence, cigarettes, uncomplicated; Z82.49 Family history of ischemic heart disease and other diseases of the circulatory system

== ENCOUNTER 2018-02-24 12:58 | Inpatient (IN) | payer OTHER ==
[~2018-02-24] VITALS: Ht 172.7 cm; Wt 63.6 kg
[2018-02-24] MEDS ORDERED: SODIUM CHLORIDE 0.9% 1000ML 1,000 ML IV STA ×2 (13:05→13:42)
[2018-02-24 13:46] LABS: BASO % 0.2 %; BASO ABS # 0.02 K/uL (0-0.2); EOS % 0.3 %; EOS ABS # 0.03 K/uL (0-0.5); HEMATOCRIT 23.1 % (37-47); HEMOGLOBIN 8.1 g/dL (12.0-16.0); IG# 0.02 K/uL (0.00-0.02); LYMPH % 17.2 %; LYMPH ABS # 1.74 K/uL (1.2-3.4); MEAN CELL VOLUME 90.6 fL (80-100); MEAN CORPUSCULAR HEMOGLOBIN 31.8 pg (25-34); MEAN CORPUSCULAR HGB CONC 35.1 g/dl (32-36); MEAN PLATELET VOLUME 8.9 fL (7.4-10.4); MONO ABS # 0.71 K/uL (0.11-0.59); NEUT % 75.1 %; NEUT ABS # 7.58 K/uL (1.4-6.5); PLATELET COUNT 215 K/uL (130-400); RED CELL DISTRIBUTION WIDTH CV 12.7 % (11.5-14.5); RED CELL DISTRIBUTION WIDTH SD 42.2 fL (36.4-46.3)
[2018-02-24 13:59] LABS: PTT PATIENT 25.4 SECONDS (21.0-31.0)
[2018-02-24 14:04] LABS: ALBUMIN 3.5 gm/dl (3.4-5.0); CALCIUM 8.3 mg/dl (8.5-10.1); CREATININE 0.6 mg/dl (0.60-1.20); POTASSIUM 3.2 mmol/L (3.5-5.1)
[2018-02-24 14:07] LABS: TOTAL PROTEIN 6.7 gm/dl (6.4-8.2)
[2018-02-24] MEDS ORDERED: SODIUM CHLORIDE 0.9% 1000ML 1,000 ML IV SCH (14:16)
--- NOTE | 2018-02-24 14:48 | History and Physical ---
History & Physical Date & Time of Service: Feb 24, 2018 at 14:32 Chief Complaint: Returning Per Er Primary Care Physician: Lisandro Brambila M.D. History of Present Illness Source: patient Patient is a 27 yo with LMP of 01/17/18 who started to have pelvic pain after having SI on 02/22 night. It progressed tpo upper abdominal pain and chest pain with deep breathing She waited for a while and the pain got worse yesterday. It was sharp, 09/09 She presented to ER on 02/23, last night She was given pain meds and IVF, her Hb was 9.7 and BHCG was 1100, she felt better and was sent home US showed small 3 mm, GS? in the uterus and moderate amount of fluid at that time Then Staff Radiologist came this morning and read the US and called her that there is moderate to large amount of fluid, suspicious for blood. She was called to come in She stated the pain never went away, has been the same -07/10, it woked her up 3 times this morning She also c/o light headedness when she ambulates and decreased apetite. She vomitedx2 She ate small amount of oat meal (1/2 cup) and got nauseous this morning She had h/o 1 SAB and D&C 2 Fullterm pregnancies and 's in 2011, 2013 Past Medical/Surgical History Medical Problems: (1) Abdominal pain (2) Breast pain (3) Breast pain (4) Chronic low back pain (5) Hemorrhage intraabdominal (6) Laceration of right ring finger (7) Laceration of right ring finger with complication (8) Leakage, amniotic fluid (9) Lower abdominal pain (10) Pain, dental (11) Pain, dental (12) Pelvic cramping (13) Positive test (14) (15) Ruptured ovarian cyst (16) Tobacco Use Disorder (17) Vaginal discharge (18) Vaginal discharge Surgical Problems: (1) No history of previous surgery Family History Hypertension Social History Smoking Status: Never Smoker Smokeless Tobacco Use: No Alcohol Use: socially Drug Use: none Marital Status: in relationship Housing status: lives with family Occupational Status: employed Immunizations History of Influenza Vaccine: No History of Tetanus Vaccine?: Unknown Allergies Coded Allergies: No Known Allergies (Unverified , NONE, 02/24/18) Home Medications No Active Prescriptions or Reported Meds Review of Systems Constitutional: + fever, + chills, + sweats, + weight loss, + weakness, + fatigue, + problem reported Eyes: No worsening of vision, No eye pain, No redness, No discharge, No diplopia, No problem reported ENT: No hearing loss, No unusual epistaxis, No nasal symptoms, No sore throat, No tinnitus, No dental problems, No trouble swallowing, No problem reported Respiratory: + cough, + sputum, + wheezing, + shortness of breath, + dyspnea on exertion, + dyspnea at rest, + hemoptysis, + problem reported (pain with deep breathing) Abdomen: + pain, + nausea, + vomiting, + diarrhea, + constipation, + GI bleeding, + problem reported Genitourinary - Female: No dysuria, No urinary frequency, No urinary urgency, No urinary incontinence, No urinary retention, No hematuria, No dysmenorrhea, No menorrhagia, No metrorrhagia, No rash, No vaginal bleeding, No vaginal discharge, No vaginal itching, No vulvodynia, No , No problem reported Physical Exam Vital Signs Date Time Temp Pulse Resp B/P (MAP) Pulse Ox O2 Delivery O2 Flow Rate FiO2 02/24/18 14:23 134 23 02/24/18 14:18 132 20 02/24/18 14:13 145 15 02/24/18 14:08 142 14 02/24/18 14:06 131/75 02/24/18 14:05 128 02/24/18 14:03 129 11 100 02/24/18 14:01 120 18 129/78 99 Room Air 02/24/18 13:59 129/78 02/24/18 13:01 36.5 118 20 126/82 100 General Appearance: + mild distress Head: normocephalic, atraumatic Eyes: normal inspection, PERRL Neck: no adenopathy Respiratory/Chest: chest non-tender, lungs clear Cardiovascular: + tachycardia Abdomen/GI: normal bowel sounds, + tenderness, + distended, + guarding, + rebound Genitourinary - Female: external genitalia normal, normal cervix, uterus normal shape and size, + adnexal tenderness, + pertinent finding (cervicomotion tenderness noted) Back: normal inspection, no CVA tenderness Extremities/Musculoskelatal: normal inspection, no calf tenderness, non-tender Skin: normal color, warm/dry, no rash Diagnostics Laboratory Results Results Past 24 Hours Test 02/24/18 13:31 Range/Units White Blood Count 10.10 4.8-10.8 K/uL Red Blood Count 2.55 4.2-5.4 M/uL Hemoglobin 8.1 12.0-16.0 g/dL Hematocrit 23.1 37-47 % Mean Corpuscular Volume 90.6 80-100 fL Mean Corpuscular Hemoglobin 31.8 25-34 pg Mean Corpuscular Hemoglobin Concent 35.1 32-36 g/dl Platelet Count 215 130-400 K/uL Mean Platelet Volume 8.9 7.4-10.4 fL Neutrophils (%) (Auto) 75.1 % Lymphocytes (%) (Auto) 17.2 % Monocytes (%) (Auto) 7.0 % Eosinophils (%) (Auto) 0.3 % Basophils (%) (Auto) 0.2 % Neutrophils # (Auto) 7.58 1.4-6.5 K/uL Lymphocytes # (Auto) 1.74 1.2-3.4 K/uL Monocytes # (Auto) 0.71 0.11-0.59 K/uL Eosinophils # (Auto) 0.03 0-0.5 K/uL Basophils # (Auto) 0.02 0-0.2 K/uL RDW Standard Deviation 42.2 36.4-46.3 fL RDW Coefficient of Variation 12.7 11.5-14.5 % Immature Granulocyte % (Auto) 0.2 % Immature Granulocyte # (Auto) 0.02 0.00-0.02 K/uL Red Blood Cell Morphology Unremarkable Prothrombin Time 10.8 9.0-12.0 SECONDS Prothromb Time International Ratio 1.0 0.9-1.1 Activated Partial Thromboplast Time 25.4 21.0-31.0 SECONDS Partial Thromboplastin Ratio 1.0 Sodium Level 138 136-145 mmol/L Potassium Level 3.2 3.5-5.1 mmol/L Chloride Level 108 98-107 mmol/L Carbon Dioxide Level 23 21-32 mmol/L Anion Gap 7.0 3-11 mmol/L Blood Urea Nitrogen 7 7-18 mg/dl Creatinine 0.60 0.60-1.20 mg/dl Est Creatinine Clear Calc Drug Dose 129.0 ml/min Estimated GFR () 146.8 Estimated GFR (Non- 126.7 BUN/Creatinine Ratio 11.4 10-20 Random Glucose 122 70-99 mg/dl Calcium Level 8.3 8.5-10.1 mg/dl Total Bilirubin 0.4 0.2-1 mg/dl Direct Bilirubin 0.1 0-0.2 mg/dl Aspartate Amino Transf (AST/SGOT) 9 15-37 U/L Alanine Aminotransferase (ALT/SGPT) 28 12-78 U/L Alkaline Phosphatase 72 45-117 U/L Total Protein 6.7 6.4-8.2 gm/dl Albumin 3.5 3.4-5.0 gm/dl Lipase 77 73-393 U/L Diagnostic Radiology Bed side US: Large amount of fluid in pelvic, uterus, ovaries floating, fluid in upper abdomen and gutters EKG Sinus tachycardia Impression Assessment and Plan AP: 27 yo female with LMP of 18 , 6w+4 days, BHCG of 1100, 3 mm? GS in uterus Sudden onset abdominal pain after Sexual intercourse Large amount of fluid/ blood in pelvic / abdomen, decreasing HB: baseline 14, was 9.7 last night and 8.1 now Tachycardia, vijay Blood pressures Discussed the findings and differential diagnosis of ruptured ectopic vs ovarian cyst, hemorrhagic corpus luteum Recommended Laparoscopy to find and treat etiology Understands the risks of bleeding / infection/ injury to surrounding organs ( bowels, bladder, ureters), possible removal of fallopian tube ( if it was ruptured ectopic) or ovary, blood cloths , DVT, PE, AR Discussed alternative as observation in hospital with serial PE, H&H and US with risk of loosing more blood and then go for emergency surgery which may cause, shock, DIC and even She understands all and decided to have surgery now All questions were answered OR is called T&C 2 units of PRBCC Resuscitation Status VTE Prophylaxis Will order VTE Prophylaxis: Yes Note Total Time: Critical Care 30 - 74 minutes
[2018-02-24] MEDS ORDERED: CEFAZOLIN SOD 1000MG/7.5 ML IV PUSH IV ONE (14:52)
[2018-02-24] MEDS ORDERED: ONDANSETRON INJ 2 MG/ML 2 ML VIAL IV PRN (15:00)
[2018-02-24] MEDS ORDERED: MEPERIDINE HCL 25 MG/ML CARP IV PRN (15:00)
[2018-02-24] MEDS ORDERED: EpHEDrine SULFATE INJ 50 MG/ML AMP IV PRN (15:00)
[2018-02-24] MEDS ORDERED: ATROPINE SULFATE 0.1 MG/ML 5ML SYR IV PRN (15:00)
[2018-02-24] MEDS ORDERED: LABETALOL HCL IV 5 MG/ML 20ML IV PRN (15:00)
[2018-02-24] MEDS ORDERED: BUPIVACAINE 0.5 % 5 MG/1 ML MPF 30ML VIAL ONE (15:05)
--- NOTE | 2018-02-24 16:00 | EMERGENCY ROOM VISIT NOTE ---
History Report prepared by Jeremy: Re Ayers Under the Supervision of: Dr. William Briseno D.O. First contact with patient: 13:01 Chief Complaint: REFERRED BY DOCTOR Stated Complaint: RETURNING PER ER History of Present Illness The patient is a 27 year old female who presents to the Emergency Room with complaints of constant lower abdominal pain beginning two nights ago. The patient reports her pain started after intercourse two nights ago. She reports a history of pain after intercourse and she was told she had ovarian cysts. The patient was seen in the ED last night for the same symptoms. She was requested to return to the ED after a reread radiology read. Since last night, the patient states her pain has gone down from a 10/10 to a 7/10. Pain is sharp stabbing in nature. No other exacerbating or remitting factors. She reports some difficulty breathing and lightheadedness. The patient reports her symptoms of shortness of breath have gotten slightly better since yesterday. She notes some chest pain with laying flat. Pt denies headache, change in vision, fevers, vaginal pain or discharge, nausea, vomiting, diarrhea, pain with urination, and melena. The patient is . Source of History: patient Onset: two nights ago Position: abdomen Symptom Intensity: Quality: other (pain) Timing: constant Associated Symptoms: + chest pain, + SOB, + abdominal pain, No fevers, No nausea, No diarrhea, No urinary symptoms Review of Systems See HPI for pertinent positives & negatives. A total of 10 systems reviewed and were otherwise negative. Past Medical & Surgical Medical Problems: (1) Chronic low back pain (2) Hemorrhage intraabdominal (3) Positive test (4) Tobacco Use Disorder Surgical Problems: (1) No history of previous surgery Family History Hypertension Social History Smoking Status: Never Smoker Alcohol Use: occasionally Drug Use: none Marital Status: in relationship Housing Status: lives with family Occupation Status: employed Current/Historical Medications No Active Prescriptions or Reported Meds Allergies Coded Allergies: No Known Allergies (Unverified , NONE, 02/24/18) Physical Exam Vital Signs Date Time Temp Pulse Resp B/P (MAP) Pulse Ox O2 Delivery O2 Flow Rate FiO2 02/24/18 19:00 100 18 128/82 100 Oxymask 10 02/24/18 18:50 116 23 132/79 100 Oxymask 10 02/24/18 18:43 36.3 120 21 138/82 100 Oxymask 10 02/24/18 14:50 36.5 123 20 131/71 (91) 100 Room Air 02/24/18 14:48 36.5 134 23 131/75 100 02/24/18 14:23 134 23 02/24/18 14:18 132 20 02/24/18 14:13 145 15 02/24/18 14:08 142 14 02/24/18 14:06 131/75 02/24/18 14:05 128 02/24/18 14:03 129 11 100 02/24/18 14:01 120 18 129/78 99 Room Air 02/24/18 13:59 129/78 02/24/18 13:01 36.5 118 20 126/82 100 Physical Exam GENERAL: Sitting up in bed, pale, ill-appearing, mild distress EYE EXAM: normal conjunctiva. OROPHARYNX: no exudate, no erythema, lips, buccal mucosa, and tongue normal and mucous membranes are dry NECK: supple, no nuchal rigidity, no adenopathy, non-tender LUNGS: Clear to auscultation. Normal chest wall mechanics HEART: Tachycardic, S1 normal and S2 normal ABDOMEN: Diffuse tenderness throughout abdomen. + guarding. normo-active bowel sounds. BACK: Back is symmetrical on inspection and there is no deformity, no midline tenderness, no CVA tenderness. SKIN: no rashes and no bruising UPPER EXTREMITIES: upper extremities are grossly normal. LOWER EXTREMITIES: No pitting edema. NEURO EXAM: Normal sensorium, cranial nerves II-XII grossly intact, normal speech, no gross weakness of arms, no gross weakness of legs. Medical Decision & Procedures Laboratory Results Test 02/24/18 13:31 02/24/18 16:30 Immature Granulocyte % (Auto) 0.2 % White Blood Count 10.10 K/uL (4.8-10.8) Red Blood Count 2.55 M/uL (4.2-5.4) Hemoglobin 8.1 g/dL (12.0-16.0) Hematocrit 23.1 % (37-47) Mean Corpuscular Volume 90.6 fL (80-100) Mean Corpuscular Hemoglobin 31.8 pg (25-34) Mean Corpuscular Hemoglobin Concent 35.1 g/dl (32-36) Platelet Count 215 K/uL (130-400) Mean Platelet Volume 8.9 fL (7.4-10.4) Neutrophils (%) (Auto) 75.1 % Lymphocytes (%) (Auto) 17.2 % Monocytes (%) (Auto) 7.0 % Eosinophils (%) (Auto) 0.3 % Basophils (%) (Auto) 0.2 % Neutrophils # (Auto) 7.58 K/uL (1.4-6.5) Lymphocytes # (Auto) 1.74 K/uL (1.2-3.4) Monocytes # (Auto) 0.71 K/uL (0.11-0.59) Eosinophils # (Auto) 0.03 K/uL (0-0.5) Basophils # (Auto) 0.02 K/uL (0-0.2) Immature Granulocyte # (Auto) 0.02 K/uL (0.00-0.02) Red Blood Cell Morphology Unremarkable Total Bilirubin 0.4 mg/dl (0.2-1) Direct Bilirubin 0.1 mg/dl (0-0.2) Aspartate Amino Transf (AST/SGOT) 9 U/L (15-37) Alanine Aminotransferase (ALT/SGPT) 28 U/L (12-78) Alkaline Phosphatase 72 U/L (45-117) Total Protein 6.7 gm/dl (6.4-8.2) Albumin 3.5 gm/dl (3.4-5.0) Lipase 77 U/L (73-393) Bedside Hemoglobin 8.2 g/dl (12.0-16.0) Bedside Hematocrit 24 % (37-47) Bedside Sodium 140 mEq/L (135-144) Bedside Potassium 3.5 mEq/L (3.3-5.0) Bedside Chloride 108 mEq/L (101-112) Bedside Total CO2 22 mEq/l (24-31) Bedside Blood Urea Nitrogen < 3 mg/dl (7-18) Bedside Creatinine 0.5 mg/dl (0.6-1.3) Bedside Glucose (other) 127 mg/dl (70-99) Bedside Ionized Calcium (Kenan) 1.04 mmol/l (1.12-1.32) Date/Time Source Procedure Growth Status 02/24/18 00:00 Nasal MRSA DNA Surveillance Screen - Final Uninterpretable result by DNA Probe. ... Complete Laboratory results per my review. Medications Administered Medications (Trade) Dose Ordered Sig/Yamilet Route Start Time Stop Time Status Last Admin Dose Admin Sodium Chloride 1,000 ml @ 999 mls/hr Q1H1M STAT IV 02/24/18 13:05 02/24/18 14:05 DC 02/24/18 14:07 999 MLS/HR Sodium Chloride 1,000 ml @ 999 mls/hr Q1H1M STAT IV 02/24/18 13:42 02/24/18 14:42 DC 02/24/18 14:07 999 MLS/HR Fentanyl Citrate (Fentanyl Inj) 50 mcg Q5M PRN IV 02/24/18 15:00 02/24/18 20:00 DC 02/24/18 19:02 50 MCG Hydromorphone HCl (Dilaudid Inj) 0.5 mg Q5M PRN IV 02/24/18 15:00 02/24/18 20:00 DC 02/24/18 19:23 0.5 MG Bupivacaine HCl (Marcaine 0.5% MPF Inj) 30 ml STK-MED ONCE .ROUTE 02/24/18 15:05 02/24/18 15:06 DC 02/24/18 17:00 8 ML Meperidine HCl (Demerol Inj) 50 mg Q4H PRN IV 02/24/18 19:00 03/10/18 18:59 02/25/18 00:57 50 MG Oxycodone/ Acetaminophen (Percocet 5-325mg Tab) 1 tab for pain scale 1-5 2 t... Q4H PRN PO 02/24/18 19:00 03/10/18 18:59 02/25/18 04:08 1 TAB Ondansetron HCl (Zofran Inj) 4 mg Q4H PRN IV 02/24/18 19:00 03/26/18 18:59 02/25/18 04:27 4 MG Miscellaneous (Floseal Hemostatic Matrix 10ml) 17 ml ONE ONCE TOP 02/24/18 19:02 02/24/18 19:03 DC 02/24/18 17:30 17 ML ED Course ED COURSE: Vital signs were reviewed and showed normal The patients medical record was reviewed The above diagnostic studies were performed and reviewed. ED treatments and interventions as stated above. 1305: Ordered Sodium Chloride 1000 ml @ 999 mls/hr IV. 1311: The patient was evaluated in room B10. A complete history and physical examination was performed. 1335: The patient is currently getting blood work. 1342: Ordered Sodium Chloride 1000 ml @ 999 mls/hr IV. 1345: I reviewed the patient's case with Dr. Adria OCHOA. She will come evaluate the patient. 1351: I updated the patient on her test results. 1417: Dr. Adria OCHOA evaluated the patient and will be taking the patient to the OR. 1423: Upon reevaluation, the patient is resting comfortably.I discussed my findings with the patient and she understands and agrees with the treatment plan. Based on the patients age, coexisting illnesses, exam and lab findings the decision to treat as an inpatient was made.The patient remained stable while under my care. The patient will be evaluated for further management. The patient was taken to the OR. Medical Decision Differential diagnoses includes but is not limited to gastritis, peptic ulcer disease, GERD, gallbladder disease, pancreatitis, small bowel obstruction, acute coronary syndrome, pericarditis, ischemic bowel, irritable bowel disease, irritable bowel syndrome, appendicitis, diverticulitis, malignancy, hernia, urinary tract infection, torsion, /ectopic (if female), perforation, trauma, infectious. Patient is a 27-year-old female who presents the ER following a call back. She was seen here last night for pain after intercourse in her lower abdomen. She had an ultrasound done at that time which showed an IUP and hemoperitoneum. At that time her hemoglobin was 9.7 off of her baseline of what appears to be 14- 13. She was fairly persistently tachycardic. Radiologist over read her studies performed last night and reviewed the case. He was concerned as there was a fair amount of hemoperitoneum and does not believe that this was conveyed in the initial report. He is uncertain of the cause of this bleeding just as the other radiologist was from last night. Based on this I attempted to call this patient back throughout the day and she eventually returned. She was still persistently tachycardic. Hemoglobin dropped from 9.7 to 8.1. She was typed and crossed and ordered blood. I had already discussed the case with gynecology at 0730 this morning when I attempted to call her back. I re-paged them and they were agreeable as previously discussed to come down to evaluated her. They came down and reevaluated her. They are concerned as was mine that this could be a ruptured ectopic versus bleeding from a follicle/cyst and with her drop of hemoglobin from a baseline of 14 to 8 she was taken emergently to the OR. She remains stable while in the ER. She was given fluids as well while in the ER. Medication Reconcilliation Current Medication List: was personally reviewed by me Blood Pressure Screening Patient's blood pressure: Normal blood pressure Consults Time Called: 1340 Consulting Physician: Dr. Adria OCHOA Returned Call: 1417 I reviewed the patient's case with Dr. Adria OCHOA. She will evaluate the patient for further management. Impression Primary Impression: Hemoperitoneum Additional Impressions: Symptomatic anemia Abdominal pain Scribe Attestation The scribe's documentation has been prepared under my direction and personally reviewed by me in its entirety. I confirm that the note above accurately reflects all work, treatment, procedures, and medical decision making performed by me. Departure Information Dispostion Being Evaluated By Surgeon Prescriptions No Active Prescriptions or Reported Meds Referrals Lisandro Brambila M.D. (PCP) Patient Instructions My [facility] Problem Qualifiers Additional Impressions: Abdominal pain Abdominal location: unspecified location Qualified Codes: R10.9 - Unspecified abdominal pain
--- NOTE | 2018-02-24 18:41 | DIAGNOSTIC IMAGING REPORT ---
KUB CLINICAL HISTORY: N foreign body. Incorrect sponge count. COMPARISON STUDY: No previous studies for comparison. FINDINGS: The soft tissues, psoas shadows, renal outlines and intestinal gas pattern appear normal. There is no evidence for bowel obstruction. No abnormal abdominal calcifications are seen. IMPRESSION: Normal study. The above report was generated using voice recognition software. It may contain grammatical, syntax or spelling errors. Electronically signed by: Nickolas Odom M.D. 02/24/2018 6:39 PM Dictated Date/Time: 02/24/2018 6:38 PM
[2018-02-24] MEDS: FENTANYL CITRATE INJ 50 MCG/1 ML 2 ML VIAL IV PRN ×4 (18:47→19:02)
[2018-02-24] MEDS ORDERED: MEPERIDINE HCL 50 MG/ML CARP IV PRN (19:00)
[2018-02-24] MEDS ORDERED: PROMETHAZINE HCL INJ 25 MG in SODIUM CHLORIDE 0.9% 50ML 50 ML IV PRN (19:00)
[2018-02-24] MEDS ORDERED: FLOSEAL HEMOSTATIC MATRIX 10ML TOP ONE (19:02)
[2018-02-24 19:06] LABS: ISTAT CREATININE 0.5 mg/dl (0.6-1.3); ISTAT IONIZED CALCIUM 1.04 mmol/l (1.12-1.32); ISTAT POTASSIUM 3.5 mEq/L (3.3-5.0); ISTAT SODIUM 140 mEq/L (135-144)
[2018-02-24] MEDS: HYDROmorphone INJ 1 MG/ML SYR IV PRN ×4 (19:08→19:23)
--- NOTE | 2018-02-24 19:13 | [facility] Post Operative Brief Note ---
Immediate Operative Summary Operative Date Feb 24, 2018. Pre-Operative Diagnosis Abdominal Pain, Bleeding in Abdomen and Pelvis, Positive Test Post-Operative Diagnosis Internal abdominal bleeding, normal pelvic organs, bleeding posterior aspect of spleen Procedure(s) Performed Exam under anesthesia, Operative laparoscopy, evacuation of blood and blood clots from pelvis and abdomen, exploration of pelvis and upper abdomen, intraoperative general surgery consult, exploratory laparotomy, control of bleeding posterior aspects of spleen Surgeon Dr. Valles [employer] [facility] Generalist Surgeon(s) Intraop consult: Dr. Castillo Estimated Blood Loss 1000 ml blood and cloths evaucated from abdomen, intraop EBL: 300 ml Findings See Below Normal uterus, fallopian tubes and rigth ovary. Left ovary was sliglty enla Fluids (cc crystalloids) 3 units of PRBCC, 4000 ml LR Specimens none Drains None Anesthesia Type General Complication(s) none Disposition Disposition: Recovery Room / PACU
--- NOTE | 2018-02-24 19:40 | Critical Care Consultation ---
Critical Care Consultation Date of Consultation: Feb 24, 2018. Attending Physician: Adria Reason for Consultation: Acute blood loss anemia secondary to possible ruptured ectopic. History of Present Illness Initial history was obtained from the gynecologic surgeon. Patient is a 27-year -old female 012 with a last menstrual period of January 17, 2018 who presented to the emergency department having postcoital pain. She was evaluated in the emergency department and underwent a ultrasound, hemoglobin was reported at 9.7 and beta hCG which was 1100. She returned after call back secondary to a staff radiologist indicating there is a moderate to large amount of fluid suspicious for blood. She reported that the pain had gotten worse, there was also subjective lightheadedness. Ultimately given the ultrasound findings and the suspicious beta hCG level she was taken for laparoscopy by gynecology. While in the operating room a large amount of bleeding was noted without obvious source. Given the significant findings Dr. Castillo of general surgery was consulted, this proceeded to an open exploratory laparotomy. About 1000 mL's of blood and clots were evacuated from the abdomen. I discussed the case with Dr. Castillo, he did not find an obvious source of bleeding, there was some oozing from the surgical bed of the spleen, this was packed and no further oozing was noted. He reported he open the lesser sac and did not visualize any retroperitoneal bleeding however our differential diagnosis does include splenic artery aneurysm. Patient was given 3 units of blood in the operating room, she was ultimately extubated and transferred to the PACU for initial recovery. She is being transferred to the ICU for further medical management. Past Medical/Surgical History (1) Chronic low back pain (2) Hemorrhage intraabdominal (3) Positive test (4) Tobacco Use Disorder Family History Hypertension Social History Smoking Status: Never Smoker Smokeless Tobacco Use: No Alcohol Use: socially Drug Use: none Marital Status: in relationship Housing Status: lives with family Occupation Status: employed Allergies Coded Allergies: No Known Allergies (Unverified , NONE, 02/24/18) Home Medications No Active Prescriptions or Reported Meds Current Inpatient Medications Current Inpatient Medications Medications (Trade) Dose Ordered Sig/Yamilet Route Start Time Stop Time Status Last Admin Dose Admin Lactated Ringer's 1,000 ml @ 125 mls/hr Q8H IV 02/24/18 14:16 03/26/18 14:15 UNV Sodium Chloride 1,000 ml @ 125 mls/hr Q8H IV 02/24/18 14:16 03/26/18 14:15 UNV Fentanyl Citrate (Fentanyl Inj) 50 mcg Q5M PRN IV 02/24/18 15:00 02/24/18 20:00 Hydromorphone HCl (Dilaudid Inj) 0.5 mg Q5M PRN IV 02/24/18 15:00 02/24/18 20:00 Meperidine HCl (Demerol Inj) 25 mg Q5M PRN IV 02/24/18 15:00 02/24/18 20:00 Ondansetron HCl (Zofran Inj) 4 mg ONE PRN IV 02/24/18 15:00 02/24/18 20:00 Labetalol HCl (Normodyne IV) 5 mg Q5M PRN IV 02/24/18 15:00 02/24/18 20:00 Ephedrine Sulfate (EpHEDrine SULFATE INJ) 5 mg Q5M PRN IV 02/24/18 15:00 02/24/18 20:00 Atropine Sulfate (Atropine Sulfate 0.1mg/ml Inj) 0.5 mg Q1M PRN IV 02/24/18 15:00 02/24/18 20:00 Meperidine HCl (Demerol Inj) 50 mg Q4H PRN IV 02/24/18 19:00 03/10/18 18:59 UNV Meperidine HCl (Demerol Inj) 75 mg Q4H PRN IV 02/24/18 19:00 03/10/18 18:59 UNV Oxycodone/ Acetaminophen (Percocet 5-325mg Tab) 1 tab for pain scale 1-5 2 t... Q4H PRN PO 02/24/18 19:00 03/10/18 18:59 UNV Ondansetron HCl (Zofran Inj) 4 mg Q4H PRN IV 02/24/18 19:00 03/26/18 18:59 UNV Promethazine HCl 25 mg/Sodium Chloride 51 ml @ 204 mls/hr Q4H PRN IV 02/24/18 19:00 03/26/18 18:59 UNV Lactated Ringer's 1,000 ml @ 125 mls/hr Q8H IV 02/24/18 18:52 03/26/18 18:51 UNV Tranexamic Acid 1000 mg/Sodium Chloride 110 ml @ 660 mls/hr Q3H IV 02/24/18 19:15 02/24/18 22:24 UNV Review of Systems In the PACU patient was complaining of abdominal pain with mild nausea. Physical Exam Date Time Temp Pulse Resp B/P (MAP) Pulse Ox O2 Delivery O2 Flow Rate FiO2 02/24/18 19:10 101 20 129/74 100 Nasal Cannula 2 02/24/18 19:00 100 18 128/82 100 Oxymask 10 02/24/18 18:50 116 23 132/79 100 Oxymask 10 02/24/18 18:43 36.3 120 21 138/82 100 Oxymask 10 02/24/18 14:50 36.5 123 20 131/71 (91) 100 Room Air 02/24/18 14:48 36.5 134 23 131/75 100 02/24/18 14:23 134 23 02/24/18 14:18 132 20 02/24/18 14:13 145 15 02/24/18 14:08 142 14 02/24/18 14:06 131/75 02/24/18 14:05 128 02/24/18 14:03 129 11 100 02/24/18 14:01 120 18 129/78 99 Room Air 02/24/18 13:59 129/78 02/24/18 13:01 36.5 118 20 126/82 100 General Appearance: uncomfortable (Secondary to pain) Head: normocephalic, atraumatic Eyes: PERRLA Neck: no tenderness, trachea midline, no stridor Respiratory: breath sounds normal, clear to auscultation Cardiovasular: regular rate/rhythm, normal S1S2, no M/G/R Abdomen: other (Dressing intact, no shadowing) Genitourinary - Female: other (Metz catheter present) Upper Extremities: no edema Lower Extremities: no edema Pulses: dorsalis pedis (R) (2+), dorsalis pedis (L) (2+) Neuro: alert, oriented x 3, normal motor exam Psychiatric: normal affect Laboratory Results Last 24 Hours Test 02/24/18 13:31 02/24/18 16:30 02/24/18 19:14 White Blood Count 10.10 K/uL Red Blood Count 2.55 M/uL Hemoglobin 8.1 g/dL Hematocrit 23.1 % Mean Corpuscular Volume 90.6 fL Mean Corpuscular Hemoglobin 31.8 pg Mean Corpuscular Hemoglobin Concent 35.1 g/dl Platelet Count 215 K/uL Mean Platelet Volume 8.9 fL Neutrophils (%) (Auto) 75.1 % Lymphocytes (%) (Auto) 17.2 % Monocytes (%) (Auto) 7.0 % Eosinophils (%) (Auto) 0.3 % Basophils (%) (Auto) 0.2 % Neutrophils # (Auto) 7.58 K/uL Lymphocytes # (Auto) 1.74 K/uL Monocytes # (Auto) 0.71 K/uL Eosinophils # (Auto) 0.03 K/uL Basophils # (Auto) 0.02 K/uL RDW Standard Deviation 42.2 fL RDW Coefficient of Variation 12.7 % Immature Granulocyte % (Auto) 0.2 % Immature Granulocyte # (Auto) 0.02 K/uL Red Blood Cell Morphology Unremarkable Prothrombin Time 10.8 SECONDS Prothromb Time International Ratio 1.0 Activated Partial Thromboplast Time 25.4 SECONDS Partial Thromboplastin Ratio 1.0 Sodium Level 138 mmol/L Potassium Level 3.2 mmol/L Chloride Level 108 mmol/L Carbon Dioxide Level 23 mmol/L Anion Gap 7.0 mmol/L 15.0 mmol/L Blood Urea Nitrogen 7 mg/dl Creatinine 0.60 mg/dl Est Creatinine Clear Calc Drug Dose 129.0 ml/min Estimated GFR () 146.8 Estimated GFR (Non- 126.7 BUN/Creatinine Ratio 11.4 Random Glucose 122 mg/dl Calcium Level 8.3 mg/dl Total Bilirubin 0.4 mg/dl Direct Bilirubin 0.1 mg/dl Aspartate Amino Transf (AST/SGOT) 9 U/L Alanine Aminotransferase (ALT/SGPT) 28 U/L Alkaline Phosphatase 72 U/L Total Protein 6.7 gm/dl Albumin 3.5 gm/dl Lipase 77 U/L Bedside Hemoglobin 8.2 g/dl Bedside Hematocrit 24 % Bedside Sodium 140 mEq/L Bedside Potassium 3.5 mEq/L Bedside Chloride 108 mEq/L Bedside Total CO2 22 mEq/l Bedside Blood Urea Nitrogen < 3 mg/dl Bedside Creatinine 0.5 mg/dl Bedside Glucose (other) 127 mg/dl Bedside Ionized Calcium (Kenan) 1.04 mmol/l Diagnostic Results I reviewed the radiology reports of the ultrasound February 23, 2018 Assessment & Plan Reason Critically Ill: Significant acute blood loss anemia of unclear etiology, positive test PLAN: Neuro: Pain control -Narcotics per RN INTER[employer] order Resp: Incentive spirometry CV: Tachycardia -Secondary to acute blood loss anemia Fluids/Renal: Continue lactated Ringer's at 125 ML's per hour ID: Patient received preoperative antibiotics, clean procedure lasted less than 4 hours GI/Nutrition: N.p.o. -Zofran for nausea Heme: Acute blood loss anemia -TXA, 1 g IV now second dose 3 hours from now * World Health Organization recommends use of TXA in hemorrhage, given significant blood loss is of unclear etiology patient would likely benefit , FDA category B -Serial H&H every 6 hours -Check coagulation profile with fibrinogen level -If patient continues to have significant blood loss, I would be concerned for possible splenic artery aneurysm that was unable to be visualized and patient would benefit from transfer to tertiary care center with ability to undergo interventional radiology. Endocrine: Blood sugars per ICU protocol Obstetrical: Positive test -We will check beta hCG now and in 48 hours Code Status: Full I have personally spent 85 minutes of critical care time in the direct management of this patient. This is a life/limb threatening event. This includes time spent evaluating patient, direct bedside care, chart review, placing orders, interpretation of diagnostic studies, discussion with consultants, patient, and/or family members regarding treatment decisions, as well as other required patient management activities. This time is exclusive of all separately billable procedures, and teaching time and separate from and in addition to any other critical care service time.
[2018-02-24 19:52] LABS: HEMATOCRIT 32.5 % (37-47); HEMOGLOBIN 11.1 g/dL (12.0-16.0)
--- NOTE | 2018-02-24 19:57 | Anesthesiology Progress Note ---
Anesthesia Post Op Note Date & Time Feb 24, 2018 at 19:57 Vital Signs Pain Intensity: 4 Vital Signs Past 12 Hours Date Time Temp Pulse Resp B/P (MAP) Pulse Ox O2 Delivery O2 Flow Rate FiO2 02/24/18 19:50 89 12 126/93 100 Nasal Cannula 2 02/24/18 19:40 36.6 96 16 116/85 100 Nasal Cannula 2 02/24/18 19:30 87 15 123/81 100 Nasal Cannula 2 02/24/18 19:20 93 21 121/80 100 Nasal Cannula 2 02/24/18 19:10 101 20 129/74 100 Nasal Cannula 2 02/24/18 19:00 100 18 128/82 100 Oxymask 10 02/24/18 18:50 116 23 132/79 100 Oxymask 10 02/24/18 18:43 36.3 120 21 138/82 100 Oxymask 10 02/24/18 14:50 36.5 123 20 131/71 (91) 100 Room Air 02/24/18 14:48 36.5 134 23 131/75 100 02/24/18 14:23 134 23 02/24/18 14:18 132 20 02/24/18 14:13 145 15 02/24/18 14:08 142 14 02/24/18 14:06 131/75 02/24/18 14:05 128 02/24/18 14:03 129 11 100 02/24/18 14:01 120 18 129/78 99 Room Air 02/24/18 13:59 129/78 02/24/18 13:01 36.5 118 20 126/82 100 Notes Mental Status: alert / awake / arousable, participated in evaluation Pt Amnestic to Procedure: Yes Nausea / Vomiting: adequately controlled Pain: adequately controlled Airway Patency, RR, SpO2: stable & adequate BP & HR: stable & adequate Hydration State: stable & adequate Anesthetic Complications: no major complications apparent
[2018-02-24 20:00] VITALS: BP 121/75; O2SAT 100
[2018-02-24 20:04] LABS: INR 1.1 (0.9-1.1); PTT PATIENT 29.2 SECONDS (21.0-31.0)
[2018-02-24] MEDS ORDERED: DiphenhydrAMINE INJ 25 MG in SYRINGE 0 ML IV PRN (20:15)
[2018-02-24] MEDS ORDERED: DiphenhydrAMINE HCL 50 MG/ML VIAL ONE (20:18)
[2018-02-24] MEDS: MEPERIDINE HCL 50 MG/ML CARP IV PRN (20:29)
[2018-02-24 20:30] VITALS: BP 130/83; PULSE 118; O2SAT 100
[2018-02-24] MEDS ORDERED: DiphenhydrAMINE HCL 50 MG/ML VIAL IV PRN (20:30)
[2018-02-24] MEDS: LACTATED RINGER'S 1000ML 1,000 ML IV SCH ×2 (20:30)
[2018-02-24 20:45] VITALS: BP 132/87; PULSE 97; O2SAT 100
[2018-02-24 21:00] VITALS: BP 116/78; PULSE 97; O2SAT 97
[2018-02-24] MEDS: TRANEXAMIC ACID INJ 1,000 MG in SODIUM CHLORIDE 0.9% 100ML 100 ML IV SCH ×2 (21:29→23:33)
[2018-02-24 21:31] VITALS: BP 118/77; O2SAT 100
[2018-02-24 22:00] VITALS: BP 129/80; PULSE 109; O2SAT 100
--- NOTE | 2018-02-24 22:03 | OPERATIVE REPORT ---
DATE OF OPERATION: 02/24/2018 PREOPERATIVE DIAGNOSES: The patient is a 27-year-old G4, P2-0-1-2 1) 6 weeks and 4 days of gestation with last menstrual period of 01/17/2018 2) Positive test, BHCG quant 1153 and no intrauterine 3) Abdominal pain s/p sexual intercourse 4) Large amount of fluid/blood in pelvis and abdomen suspicious for intra-abdominal bleed from either ectopic or hemorrhagic corpus luteum cyst of left ovary. 5) Decreasing Hemoglobin and Hematocrit POSTOPERATIVE DIAGNOSIS: Intra-abdominal bleeding. Normal pelvic organs. No bleeding from either of the tubes or ovaries. Intraoperative general surgery consult Bleeding from posterior aspect of the spleen. PROCEDURE: Examination under anesthesia, operative laparoscopy, evacuation of blood and blood clots from the pelvis and abdomen about 1000 mL, exploration of pelvis and abdomen, intraoperative general surgery consult and exploratory laparotomy, control of bleeding from posterior aspects of the Spleen. SURGEON: Uvaldo Covington MD. BATCH AND FURNACE MANAGER: An intraoperative consult was done by Dr. Castillo ESTIMATED BLOOD LOSS: 1000 mL of blood and blood clots evacuated from the abdomen and then intra-abdominal EBL was 300. FLUIDS: Three units of packed red blood cells and 4000 mL of lactated ringer. SPECIMENS: None. DRAINS: Metz drained 300 mL of urine. ANESTHESIA: General endotracheal by Dr. Chambers. COMPLICATIONS: None. FINDINGS: Exam under anesthesia revealed distended abdomen and pelvic exam revealed normal vagina and cervix. Uterus anteverted, slightly larger about 6-week size and adnexal fullness noted. Intraoperative findings, there was large amount of blood and blood cloths in the pelvis and upper abdomen about 1000 mL evacuated. Normal uterus, fallopian tubes and right ovary. The left ovary was enlarged slightly about 4 x 3 cm. There was a physiologic looking cyst within the left ovary which is most likely physiologic corpus luteum cyst. There was no bleeding from that cyst and there were no signs of ectopic on either tubes. Normal bowel surfaces, normal appendix, normal retroperitoneum and there was blood collection around the liver and the spleen and there was minimal bleeding posterior aspect of spleen. See Dr. Castillo's note for details of intra-abdominal organs. DESCRIPTION OF PROCEDURE: The patient was taken to the operating room where general anesthesia was given without difficulty. She was placed in dorsal lithotomy position, prepared and draped in usual sterile fashion. A Metz catheter was inserted into the bladder to drain. An exam under anesthesia revealed the above findings. A sponge on a stick was placed in the vagina to provide manipulation of the uterus during surgery. No instrument was placed on the cervix, neither into the uterus. The gloves were changed. Attention was turned to the abdomen where a periumbilical skin incision was made to about 12 mm. Subcuticular fat tissue was dissected off with the tip of hemostat and then we noted that we were already into the abdomen. Bowel loops were visible from the umbilical incision and this incision was held up and then an 11 mm trocar was placed and CO2 gas was attached and the intraabdominal pressure was set to 15 mmHg. Pneumoperitoneum was obtained and the scope was introduced. There were found to be above findings. Bowel graham, pelvis and upper abdomen were all covered with dark blood and blood clots. Two more incisions were made on the right and left quadrants under direct visualization and the blood clots were suctioned from the pelvis first. With a gentle pressure from the vagina, uterine fundus was visualized and then Trendelenburg position was obtained and all the blood clots were suctioned and drained from the cul-de-sac. The bowel was retracted toward the abdomen and uterine cornua was held with a grasper gently and then both fallopian tubes were visualized and followed with the grasper. They were both intact. No bleeding was noted. Right ovary was small, atrophic. Left ovary was seen and brought to the field, slightly enlarged with a physiologic corpus luteum cyst. There was no bleeding from neither ovary nor the fallopian tubes. Again the more blood clots were suctioned from the cul-de-sac, cul-de-sac appeared to be normal and then the suction was introduced towards her upper abdomen. The blood from around the liver and the spleen were also suctioned and also from the gutters. Then reverse Trendelenburg was obtained and the blood from the upper abdomen was suctioned again from the pelvis and then Trendelenburg was done again. The uterus was again brought to the midline and both ovaries were visualized. The pelvis was irrigated with normal saline copiously and suctioned again and ovaries and fallopian tubes were visualized to be intact and normal. No bleeding was found. We then saw active red bleeding from the upper abdomen around the liver and spleen and around the omentum in upper abdomen. Decision was made to call for a general surgery consult and Dr. Castillo came in, he looked with the laparoscope first and the bleeding source from around the spleen was unable to identify. Dr. Castillo decided to do a midline vertical incision to proceed with the surgery. The patient was taken out from lithotomy position. She was placed in dorsal spine position and prepared and draped in usual sterile fashion. The gloves and gowns were changed and a midline vertical incision was made at belly button by Dr. Castillo. Then laparotomy was done and the blood was suctioned and cleaned. Pelvic organs were visualized again. The left ovary with a Brainard clamp, then the surface had little bit of oozing type bleeding, most likley from instrumentation. It was irrigated and suctioned. It was controlled with pressure and FloSeal and it was returned to the pelvis. Dr. Castillo explored all the bowels, appendix and retroperitoneum, they appeared to be normal. Liver and spleen appeared to be normal. All the blood was suctioned and cleaned from the upper abdomen. See details of his surgery from his dictated operative note. Then the posterior aspect of the spleen, bleeding was controlled with Bovie, Surgicel and FloSeal. All the laps were removed from patient's abdomen. We waited for 6 minutes and no more bleeding was seen. The patient was dry and the decision was made to end the procedure. The fascia was closed with #1 PDS in a running fashion starting from both corners meeting in the midline and the skin was closed with abhinav and the fascia on the left lower laparoscopic port site ( 10 mm) was repaired with 0 Vicryl with figure-of- eight stitch and the skin were closed with 4-0 Monocryl in a subcuticular fashion. The right port was 5 mm. The patient tolerated the procedure well. She received 2 doses of antibiotic, 1 gram of cefazolin before surgery and during surgery. X-ray was done at the end for the abdomen to check for any missing objects despite count was correct x3. No objects were seen on the abdomen or pelvis by the x-ray. An ICU attending presented to at the end of the surgery. The patient was signed out to him with her history and findings by me as well as Dr. Castillo. The patient was taken to recovery room in stable condition. She will be admitted to ICU. I attest to the content of the Intraoperative Record and any orders documented therein. Any exceptions are noted below. PETRONAD
--- NOTE | 2018-02-24 22:21 | OB/GYN Progress Note ---
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 Postop check Patient is seen and examined Feels better, states just tired and sore Pain is under control with meds No CP/ SOB/ Dizziness/ N&V/ VB/ Leg pain Not OOB yet Tolerating sips, very thirsty, likes to drink, has a NGT Explained about the surgery and findings Shown her pictures Date Time Temp Pulse Resp B/P (MAP) Pulse Ox O2 Delivery O2 Flow Rate FiO2 02/24/18 19:50 89 12 126/93 100 Nasal Cannula 2 02/24/18 19:40 36.6 96 16 116/85 100 Nasal Cannula 2 02/24/18 19:30 87 15 123/81 100 Nasal Cannula 2 02/24/18 19:20 93 21 121/80 100 Nasal Cannula 2 02/24/18 19:10 101 20 129/74 100 Nasal Cannula 2 02/24/18 19:00 100 18 128/82 100 Oxymask 10 02/24/18 18:50 116 23 132/79 100 Oxymask 10 02/24/18 18:43 36.3 120 21 138/82 100 Oxymask 10 02/24/18 14:50 36.5 123 20 131/71 (91) 100 Room Air 02/24/18 14:48 36.5 134 23 131/75 100 02/24/18 14:23 134 23 02/24/18 14:18 132 20 02/24/18 14:13 145 15 02/24/18 14:08 142 14 02/24/18 14:06 131/75 02/24/18 14:05 128 02/24/18 14:03 129 11 100 02/24/18 14:01 120 18 129/78 99 Room Air 02/24/18 13:59 129/78 02/24/18 13:01 36.5 118 20 126/82 100 Pulse 90's, BP's stable, WNL UOP: 350 in PACU PE: General: Alert, orientedx3, mild distress CVS: S1S2 RRR Lungs: CTAB Abd: soft, appropriately tender around incision, ( states feels better compared to before surgery), ND, BS+ but sluggish, dressing dry No VB Ext: NT, no edema, SCD's on AP: 27 yo at 6.4 wks with LMP, BHCG 1100+, 3mm GS? s/p EUA, laparoscopy, evacuation of intraabdominal and pelvic blood/ cloths, exploration of pelvic and abdomen, intraop surgery consult , pod#0 VSS Afebrile doing well s/p 3 units of PBCC, H&H Stable ICU managing fluids and serial labs Continue to monitor closely
[2018-02-24] MEDS: OXYCODONE/ACETAMINOPHEN 5-325 TAB PO PRN (23:33)
[2018-02-24] MEDS: CEFAZOLIN IV 1,000 MG in SYRINGE 0 ML IV SCH (23:44)
[2018-02-25] VITALS (11 sets, daily range): BP systolic 104–133; BP diastolic 61–86; PULSE 72–113; TEMP 36.4–37.1; O2SAT 98–99; Ht 172.7 cm; Wt 63.6 kg
--- NOTE | 2018-02-25 00:24 | OPERATIVE REPORT ---
DATE OF OPERATION: 02/24/2018 PREOPERATIVE DIAGNOSIS: Intra-abdominal bleeding. POSTOPERATIVE DIAGNOSIS: Laceration of posterior aspect of the spleen. SURGEON: Nickolas Castillo MD. NEWSPAPER EDITOR: Uvaldo Covington MD. FINDINGS AND PROCEDURE: I was asked to join this case that was begun by Dr. Covington. The patient was undergoing laparoscopy for a finding of a large amount of fluid in the abdomen. She was also found to have an elevated beta hCG. Dr. Covington began with laparoscopy and evacuation of large amounts of blood. She will dictate that portion of the case. Upon my arrival, there was small amount of blood in the pelvis as well as in the right upper quadrant and left upper quadrant. I evacuated the blood in the left upper quadrant using suction. However, there was welling up of blood from the subdiaphragmatic area on the left. It had been evacuated from the right upper quadrant. There was no further bleeding in the area. I could not identify the site of bleeding. The patient had had approximately 1100 mL of blood in the abdomen upon initial opening and then had an additional 300 mL evacuated. At that point, we decided to perform an open procedure. A vertical midline incision was made, carried down through the subcutaneous tissue to the fascia which was opened in the midline. That incision was extended superiorly on 2 occasions. Exploration of the abdomen was then undertaken beginning in the pelvis. There was one area of bleeding from the left ovary where there was a corpus luteum cyst and that was controlled with cautery and FloSeal. The right ovary was normal. The uterus was not enlarged. There was no further bleeding there and the pelvis was packed. I then checked the retroperitoneum reflecting the small bowel towards the right side of the abdomen. There was no hematoma or staining of the retroperitoneum with any blood. I then wanted to investigate the area around the pancreas to rule out bleeding from a possible splenic artery aneurysm. The gastrocolic ligament was opened and the lesser sac was entered. The pancreas and the surrounding tissues were identified. There was no hematoma there and there was no staining. I also inspected the spleen. I palpated the liver. There were no lacerations of the liver. The spleen did not feel to be abnormal. I could not palpate any lesions, but I then mobilized the spleen and retracted it medially. At that point, beneath the spleen, one of the attachments of the fatty tissue there was some bleeding that was a mild ooze. I used cautery to control the majority of it. I then placed a piece of Surgicel and FloSeal. I let that sit for 3 minutes by the clock. I then removed the Surgicel. There was another small area of bleeding that was controlled with cautery. Additional Surgicel with FloSeal was placed and again it was monitored for 3 minutes by the clock and this time there was no further bleeding. There was no collection of blood in the left upper quadrant. There were no other sites of bleeding identified. The liver was again palpated and visualized with no areas of laceration or defect identified. There were no masses. At this point, the sponge counts were correct as were the needle and instrument counts. Dr. Covington completed the closure and will dictate that portion of the case. I attest to the content of the Intraoperative Record and any orders documented therein. Any exception s are noted below.
[2018-02-25] MEDS: MEPERIDINE HCL 50 MG/ML CARP IV PRN ×2 (00:57→07:18)
[2018-02-25] MEDS: LACTATED RINGER'S 1000ML 1,000 ML IV SCH ×3 (00:58→12:15)
[2018-02-25 01:32] LABS: HEMATOCRIT 32.3 % (37-47); HEMOGLOBIN 11.6 g/dL (12.0-16.0)
[2018-02-25 02:15] LABS: BLOOD UREA NITROGEN 5 mg/dl (7-18); CALCIUM 6.9 mg/dl (8.5-10.1); CARBON DIOXIDE 23 mmol/L (21-32); CREATININE 0.44 mg/dl (0.60-1.20); GLUCOSE 124 mg/dl (70-99); POTASSIUM 3.5 mmol/L (3.5-5.1); SODIUM 137 mmol/L (136-145)
[2018-02-25] MEDS: OXYCODONE/ACETAMINOPHEN 5-325 TAB PO PRN ×4 (04:08→19:45)
[2018-02-25] MEDS: ONDANSETRON INJ 2 MG/ML 2 ML VIAL IV PRN ×2 (04:27→08:58)
[2018-02-25 05:42] LABS: HEMATOCRIT 30.2 % (37-47); HEMOGLOBIN 10.8 g/dL (12.0-16.0); MEAN CELL VOLUME 87.5 fL (80-100); MEAN CORPUSCULAR HEMOGLOBIN 31.3 pg (25-34); MEAN CORPUSCULAR HGB CONC 35.8 g/dl (32-36); PLATELET COUNT 160 K/uL (130-400); RED CELL DISTRIBUTION WIDTH CV 13.4 % (11.5-14.5); RED CELL DISTRIBUTION WIDTH SD 43.4 fL (36.4-46.3); WHITE BLOOD COUNT 14.79 K/uL (4.8-10.8)
[2018-02-25] MEDS ORDERED: CEFAZOLIN IV 1,000 MG in DEXTROSE 5% 50ML 50 ML IV SCH (06:00)
[2018-02-25 06:13] LABS: PHOSPHORUS 2.5 mg/dl (2.5-4.9)
[2018-02-25] MEDS: MAGNESIUM OXIDE 400 MG TAB PO SCH ×3 (07:18→15:47)
[2018-02-25] MEDS: CEFAZOLIN IV 1,000 MG in SYRINGE 0 ML IV SCH ×2 (07:29→15:48)
--- NOTE | 2018-02-25 08:49 | Surgery Progress Note ---
Surgery Progress Note Date of Service Feb 25, 2018. Subjective Post OP Day: 1 + pain controlled, No bowel movement, No flatus, No nausea, No vomiting Objective Vital Signs: Date Time Temp Pulse Resp B/P (MAP) Pulse Ox O2 Delivery O2 Flow Rate FiO2 02/25/18 08:00 36.9 72 20 111/76 (88) 98 Room Air 02/25/18 06:01 85 21 109/61 (77) 98 Room Air 02/25/18 05:01 102 18 122/66 (84) 98 Room Air 02/25/18 04:01 37.1 93 21 104/65 (78) 98 Room Air 02/25/18 04:00 Room Air 02/25/18 03:01 95 19 108/68 (81) 98 Room Air 02/25/18 02:02 90 18 115/74 (88) 98 Room Air 02/25/18 01:01 96 18 118/76 (90) 99 Room Air 02/25/18 00:01 36.4 100 21 133/86 (102) 98 Room Air 02/25/18 00:00 Room Air 02/24/18 22:00 109 15 129/80 (96) 100 Nasal Cannula 2.0 02/24/18 21:31 15 118/77 (91) 100 Nasal Cannula 2.0 02/24/18 21:00 97 116/78 (91) 97 Nasal Cannula 2.0 02/24/18 20:45 97 132/87 (102) 100 Nasal Cannula 2.0 02/24/18 20:30 118 130/83 (99) 100 Nasal Cannula 2.0 02/24/18 20:00 16 121/75 (90) 100 Nasal Cannula 2.0 02/24/18 19:50 89 12 126/93 100 Nasal Cannula 2 02/24/18 19:40 36.6 96 16 116/85 100 Nasal Cannula 2 02/24/18 19:30 87 15 123/81 100 Nasal Cannula 2 02/24/18 19:20 93 21 121/80 100 Nasal Cannula 2 02/24/18 19:10 101 20 129/74 100 Nasal Cannula 2 02/24/18 19:00 100 18 128/82 100 Oxymask 10 02/24/18 18:50 116 23 132/79 100 Oxymask 10 02/24/18 18:43 36.3 120 21 138/82 100 Oxymask 10 02/24/18 14:50 36.5 123 20 131/71 (91) 100 Room Air 02/24/18 14:48 36.5 134 23 131/75 100 02/24/18 14:23 134 23 02/24/18 14:18 132 20 02/24/18 14:13 145 15 02/24/18 14:08 142 14 02/24/18 14:06 131/75 02/24/18 14:05 128 02/24/18 14:03 129 11 100 02/24/18 14:01 120 18 129/78 99 Room Air 02/24/18 13:59 129/78 02/24/18 13:01 36.5 118 20 126/82 100 Physical Exam: nasogastric drainage (10 cc) Abdomen: normal bowel sounds (present but decreased), soft Incision(s): clean, dry, intact, no drainage Laboratory Results: Results Past 24 Hours Test 02/24/18 13:31 02/24/18 16:30 02/24/18 19:33 02/25/18 00:01 Range/Units White Blood Count 10.10 4.8-10.8 K/uL Red Blood Count 2.55 4.2-5.4 M/uL Hemoglobin 8.1 11.1 12.0-16.0 g/dL Hematocrit 23.1 32.5 37-47 % Mean Corpuscular Volume 90.6 80-100 fL Mean Corpuscular Hemoglobin 31.8 25-34 pg Mean Corpuscular Hemoglobin Concent 35.1 32-36 g/dl Platelet Count 215 130-400 K/uL Mean Platelet Volume 8.9 7.4-10.4 fL Neutrophils (%) (Auto) 75.1 % Lymphocytes (%) (Auto) 17.2 % Monocytes (%) (Auto) 7.0 % Eosinophils (%) (Auto) 0.3 % Basophils (%) (Auto) 0.2 % Neutrophils # (Auto) 7.58 1.4-6.5 K/uL Lymphocytes # (Auto) 1.74 1.2-3.4 K/uL Monocytes # (Auto) 0.71 0.11-0.59 K/uL Eosinophils # (Auto) 0.03 0-0.5 K/uL Basophils # (Auto) 0.02 0-0.2 K/uL RDW Standard Deviation 42.2 36.4-46.3 fL RDW Coefficient of Variation 12.7 11.5-14.5 % Immature Granulocyte % (Auto) 0.2 % Immature Granulocyte # (Auto) 0.02 0.00-0.02 K/uL Red Blood Cell Morphology Unremarkable Prothrombin Time 10.8 11.5 9.0-12.0 SECONDS Prothromb Time International Ratio 1.0 1.1 0.9-1.1 Activated Partial Thromboplast Time 25.4 29.2 21.0-31.0 SECONDS Partial Thromboplastin Ratio 1.0 1.1 Sodium Level 138 136-145 mmol/L Potassium Level 3.2 3.5-5.1 mmol/L Chloride Level 108 98-107 mmol/L Carbon Dioxide Level 23 21-32 mmol/L Anion Gap 7.0 15.0 16-25 mmol/L Blood Urea Nitrogen 7 7-18 mg/dl Creatinine 0.60 0.60-1.20 mg/dl Est Creatinine Clear Calc Drug Dose 129.0 ml/min Estimated GFR () 146.8 Estimated GFR (Non- 126.7 BUN/Creatinine Ratio 11.4 10-20 Random Glucose 122 70-99 mg/dl Calcium Level 8.3 8.5-10.1 mg/dl Total Bilirubin 0.4 0.2-1 mg/dl Direct Bilirubin 0.1 0-0.2 mg/dl Aspartate Amino Transf (AST/SGOT) 9 15-37 U/L Alanine Aminotransferase (ALT/SGPT) 28 12-78 U/L Alkaline Phosphatase 72 45-117 U/L Total Protein 6.7 6.4-8.2 gm/dl Albumin 3.5 3.4-5.0 gm/dl Lipase 77 73-393 U/L Bedside Hemoglobin 8.2 12.0-16.0 g/dl Bedside Hematocrit 24 37-47 % Bedside Sodium 140 135-144 mEq/L Bedside Potassium 3.5 3.3-5.0 mEq/L Bedside Chloride 108 101-112 mEq/L Bedside Total CO2 22 24-31 mEq/l Bedside Blood Urea Nitrogen < 3 7-18 mg/dl Bedside Creatinine 0.5 0.6-1.3 mg/dl Bedside Glucose (other) 127 70-99 mg/dl Bedside Ionized Calcium (Kenan) 1.04 1.12-1.32 mmol/l Fibrinogen 193 184-400 mg/dl Human Chorionic Gonadotropin, Quant 1118 mIU/mL Bedside Glucose 122 70-90 mg/dl Test 02/25/18 01:20 02/25/18 05:16 Range/Units Hemoglobin 11.6 10.8 12.0-16.0 g/dL Hematocrit 32.3 30.2 37-47 % Sodium Level 137 136-145 mmol/L Potassium Level 3.5 3.5-5.1 mmol/L Chloride Level 107 98-107 mmol/L Carbon Dioxide Level 23 21-32 mmol/L Anion Gap 7.0 3-11 mmol/L Blood Urea Nitrogen 5 7-18 mg/dl Creatinine 0.44 0.60-1.20 mg/dl Est Creatinine Clear Calc Drug Dose 196.2 ml/min Estimated GFR () > 150.0 Estimated GFR (Non- 140.3 BUN/Creatinine Ratio 11.2 10-20 Random Glucose 124 70-99 mg/dl Calcium Level 6.9 8.5-10.1 mg/dl Ionized Calcium 0.99 1.12-1.32 mmol/l White Blood Count 14.79 4.8-10.8 K/uL Red Blood Count 3.45 4.2-5.4 M/uL Mean Corpuscular Volume 87.5 80-100 fL Mean Corpuscular Hemoglobin 31.3 25-34 pg Mean Corpuscular Hemoglobin Concent 35.8 32-36 g/dl RDW Standard Deviation 43.4 36.4-46.3 fL RDW Coefficient of Variation 13.4 11.5-14.5 % Platelet Count 160 130-400 K/uL Mean Platelet Volume 9.0 7.4-10.4 fL Phosphorus Level 2.5 2.5-4.9 mg/dl Magnesium Level 1.5 1.8-2.4 mg/dl Assessment & Plan S/P exploratory lap for bleeding Stable hemodynamically H&H stable, continue serial determinations No evidence of ongoing bleeding D/C NGT Agree begin clear liquids
--- NOTE | 2018-02-25 09:08 | Surgery Progress Note ---
Surgery Progress Note Date of Service Feb 25, 2018. Subjective Post OP Day: 1 + feeling well, + pain controlled Objective Vital Signs: Date Time Temp Pulse Resp B/P (MAP) Pulse Ox O2 Delivery O2 Flow Rate FiO2 02/25/18 08:00 36.9 72 20 111/76 (88) 98 Room Air 02/25/18 06:01 85 21 109/61 (77) 98 Room Air 02/25/18 05:01 102 18 122/66 (84) 98 Room Air 02/25/18 04:01 37.1 93 21 104/65 (78) 98 Room Air 02/25/18 04:00 Room Air 02/25/18 03:01 95 19 108/68 (81) 98 Room Air 02/25/18 02:02 90 18 115/74 (88) 98 Room Air 02/25/18 01:01 96 18 118/76 (90) 99 Room Air 02/25/18 00:01 36.4 100 21 133/86 (102) 98 Room Air 02/25/18 00:00 Room Air 02/24/18 22:00 109 15 129/80 (96) 100 Nasal Cannula 2.0 02/24/18 21:31 15 118/77 (91) 100 Nasal Cannula 2.0 02/24/18 21:00 97 116/78 (91) 97 Nasal Cannula 2.0 02/24/18 20:45 97 132/87 (102) 100 Nasal Cannula 2.0 02/24/18 20:30 118 130/83 (99) 100 Nasal Cannula 2.0 02/24/18 20:00 16 121/75 (90) 100 Nasal Cannula 2.0 02/24/18 19:50 89 12 126/93 100 Nasal Cannula 2 02/24/18 19:40 36.6 96 16 116/85 100 Nasal Cannula 2 02/24/18 19:30 87 15 123/81 100 Nasal Cannula 2 02/24/18 19:20 93 21 121/80 100 Nasal Cannula 2 02/24/18 19:10 101 20 129/74 100 Nasal Cannula 2 02/24/18 19:00 100 18 128/82 100 Oxymask 10 02/24/18 18:50 116 23 132/79 100 Oxymask 10 02/24/18 18:43 36.3 120 21 138/82 100 Oxymask 10 02/24/18 14:50 36.5 123 20 131/71 (91) 100 Room Air 02/24/18 14:48 36.5 134 23 131/75 100 02/24/18 14:23 134 23 02/24/18 14:18 132 20 02/24/18 14:13 145 15 02/24/18 14:08 142 14 02/24/18 14:06 131/75 02/24/18 14:05 128 02/24/18 14:03 129 11 100 02/24/18 14:01 120 18 129/78 99 Room Air 02/24/18 13:59 129/78 02/24/18 13:01 36.5 118 20 126/82 100 General Appearance: no apparent distress Abdomen: non tender, non distended, soft Incision(s): clean, dry, intact Extremities: non-tender, normal inspection Laboratory Results: Results Past 24 Hours Test 02/24/18 13:31 02/24/18 16:30 02/24/18 19:33 02/25/18 00:01 Range/Units White Blood Count 10.10 4.8-10.8 K/uL Red Blood Count 2.55 4.2-5.4 M/uL Hemoglobin 8.1 11.1 12.0-16.0 g/dL Hematocrit 23.1 32.5 37-47 % Mean Corpuscular Volume 90.6 80-100 fL Mean Corpuscular Hemoglobin 31.8 25-34 pg Mean Corpuscular Hemoglobin Concent 35.1 32-36 g/dl Platelet Count 215 130-400 K/uL Mean Platelet Volume 8.9 7.4-10.4 fL Neutrophils (%) (Auto) 75.1 % Lymphocytes (%) (Auto) 17.2 % Monocytes (%) (Auto) 7.0 % Eosinophils (%) (Auto) 0.3 % Basophils (%) (Auto) 0.2 % Neutrophils # (Auto) 7.58 1.4-6.5 K/uL Lymphocytes # (Auto) 1.74 1.2-3.4 K/uL Monocytes # (Auto) 0.71 0.11-0.59 K/uL Eosinophils # (Auto) 0.03 0-0.5 K/uL Basophils # (Auto) 0.02 0-0.2 K/uL RDW Standard Deviation 42.2 36.4-46.3 fL RDW Coefficient of Variation 12.7 11.5-14.5 % Immature Granulocyte % (Auto) 0.2 % Immature Granulocyte # (Auto) 0.02 0.00-0.02 K/uL Red Blood Cell Morphology Unremarkable Prothrombin Time 10.8 11.5 9.0-12.0 SECONDS Prothromb Time International Ratio 1.0 1.1 0.9-1.1 Activated Partial Thromboplast Time 25.4 29.2 21.0-31.0 SECONDS Partial Thromboplastin Ratio 1.0 1.1 Sodium Level 138 136-145 mmol/L Potassium Level 3.2 3.5-5.1 mmol/L Chloride Level 108 98-107 mmol/L Carbon Dioxide Level 23 21-32 mmol/L Anion Gap 7.0 15.0 16-25 mmol/L Blood Urea Nitrogen 7 7-18 mg/dl Creatinine 0.60 0.60-1.20 mg/dl Est Creatinine Clear Calc Drug Dose 129.0 ml/min Estimated GFR () 146.8 Estimated GFR (Non- 126.7 BUN/Creatinine Ratio 11.4 10-20 Random Glucose 122 70-99 mg/dl Calcium Level 8.3 8.5-10.1 mg/dl Total Bilirubin 0.4 0.2-1 mg/dl Direct Bilirubin 0.1 0-0.2 mg/dl Aspartate Amino Transf (AST/SGOT) 9 15-37 U/L Alanine Aminotransferase (ALT/SGPT) 28 12-78 U/L Alkaline Phosphatase 72 45-117 U/L Total Protein 6.7 6.4-8.2 gm/dl Albumin 3.5 3.4-5.0 gm/dl Lipase 77 73-393 U/L Bedside Hemoglobin 8.2 12.0-16.0 g/dl Bedside Hematocrit 24 37-47 % Bedside Sodium 140 135-144 mEq/L Bedside Potassium 3.5 3.3-5.0 mEq/L Bedside Chloride 108 101-112 mEq/L Bedside Total CO2 22 24-31 mEq/l Bedside Blood Urea Nitrogen < 3 7-18 mg/dl Bedside Creatinine 0.5 0.6-1.3 mg/dl Bedside Glucose (other) 127 70-99 mg/dl Bedside Ionized Calcium (Kenan) 1.04 1.12-1.32 mmol/l Fibrinogen 193 184-400 mg/dl Human Chorionic Gonadotropin, Quant 1118 mIU/mL Bedside Glucose 122 70-90 mg/dl Test 02/25/18 01:20 02/25/18 05:16 02/25/18 08:59 Range/Units Hemoglobin 11.6 10.8 12.0-16.0 g/dL Hematocrit 32.3 30.2 37-47 % Sodium Level 137 136-145 mmol/L Potassium Level 3.5 3.5-5.1 mmol/L Chloride Level 107 98-107 mmol/L Carbon Dioxide Level 23 21-32 mmol/L Anion Gap 7.0 3-11 mmol/L Blood Urea Nitrogen 5 7-18 mg/dl Creatinine 0.44 0.60-1.20 mg/dl Est Creatinine Clear Calc Drug Dose 196.2 ml/min Estimated GFR () > 150.0 Estimated GFR (Non- 140.3 BUN/Creatinine Ratio 11.2 10-20 Random Glucose 124 70-99 mg/dl Calcium Level 6.9 8.5-10.1 mg/dl Ionized Calcium 0.99 1.12-1.32 mmol/l White Blood Count 14.79 4.8-10.8 K/uL Red Blood Count 3.45 4.2-5.4 M/uL Mean Corpuscular Volume 87.5 80-100 fL Mean Corpuscular Hemoglobin 31.3 25-34 pg Mean Corpuscular Hemoglobin Concent 35.8 32-36 g/dl RDW Standard Deviation 43.4 36.4-46.3 fL RDW Coefficient of Variation 13.4 11.5-14.5 % Platelet Count 160 130-400 K/uL Mean Platelet Volume 9.0 7.4-10.4 fL Phosphorus Level 2.5 2.5-4.9 mg/dl Magnesium Level 1.5 1.8-2.4 mg/dl Assessment & Plan POD#1 clear liquids follow hcg/CBC
[2018-02-25] MEDS ORDERED: NURSING VERBAL MED ORDER ONE ×2 (12:15→13:45)
--- NOTE | 2018-02-25 12:53 | Anesthesiology Progress Note ---
Anesthesia Post Op Note Date & Time Feb 25, 2018 at 12:52 Vital Signs Pain Intensity: 10.0 Vital Signs Past 12 Hours Date Time Temp Pulse Resp B/P (MAP) Pulse Ox O2 Delivery O2 Flow Rate FiO2 02/25/18 10:00 113 23 127/84 (98) 98 Room Air 02/25/18 08:00 Room Air 02/25/18 08:00 36.9 72 20 111/76 (88) 98 Room Air 02/25/18 06:01 85 21 109/61 (77) 98 Room Air 02/25/18 05:01 102 18 122/66 (84) 98 Room Air 02/25/18 04:01 37.1 93 21 104/65 (78) 98 Room Air 02/25/18 04:00 Room Air 02/25/18 03:01 95 19 108/68 (81) 98 Room Air 02/25/18 02:02 90 18 115/74 (88) 98 Room Air 02/25/18 01:01 96 18 118/76 (90) 99 Room Air Notes Mental Status: alert / awake / arousable, participated in evaluation Pt Amnestic to Procedure: Yes Nausea / Vomiting: adequately controlled Pain: adequately controlled Airway Patency, RR, SpO2: stable & adequate BP & HR: stable & adequate Hydration State: stable & adequate Anesthetic Complications: no major complications apparent
[2018-02-25 13:15] LABS: HEMATOCRIT 31.7 % (37-47); HEMOGLOBIN 11.2 g/dL (12.0-16.0)
[2018-02-25] MEDS: DOCUSATE SODIUM 100 MG CAP PO PRN (13:53)
[2018-02-25] MEDS: POLYETHYLENE (MIRALAX) 17 GM PACK PO PRN (13:53)
--- NOTE | 2018-02-25 13:56 | Critical Care Progress Note ---
Critical Care Progress Note Date of Service Feb 25, 2018. ICU Day ICU Day Number: 2; postop day [address] Zarco Subjective Pain well controlled, no nausea no vomiting, no flatulence at this time however she feels like she is going to develop gas. Patient curious about status of , I explained to her and her significant other need for follow-up and labs. Objective General: Alert. nontoxic. Skin: Warm, dry, Head: Atraumatic Ears, nose, mouth and throat: airway patent, NG tube present Cardiovascular: Normal peripheral perfusion Respiratory: no respiratory distress Gastrointestinal: Non distended, no shadowing on dressing, mild tenderness with palpation Musculoskeletal: No deformity Assessment & Plan PLAN: Neuro: Pain control -Narcotics per MERRY GO ROUND ATTENDANT order Resp: Incentive spirometry CV: Tachycardia: Resolved Fluids/Renal: Discontinued IV fluids ID: Postoperative antibiotics per [employer]ERR[employer] ROUND ATTENDANT, to stop at 24 hours GI/Nutrition: N.p.o. -Zofran for nausea Heme: Acute blood loss anemia -Hemoglobin and hematocrit appear to be stable. Endocrine: Blood sugars per ICU protocol Obstetrical: Positive test -Quant 1118 approximately 12 hours later it is 1423 Code Status: Full Stable for downgrade out of ICU, have discussed the case with Dr. Castillo of dental surgery and Dr. Gerber of obstetrics Data Medications: Current Inpatient Medications Medications (Trade) Dose Ordered Sig/Yamilet Route Start Time Stop Time Status Last Admin Dose Admin Oxycodone/ Acetaminophen (Percocet 5-325mg Tab) 1 tab for pain scale 1-5 2 t... Q4H PRN PO 02/24/18 19:00 03/10/18 18:59 02/25/18 09:50 2 TAB Ondansetron HCl (Zofran Inj) 4 mg Q4H PRN IV 02/24/18 19:00 03/26/18 18:59 02/25/18 08:58 4 MG Promethazine HCl 25 mg/Sodium Chloride 51 ml @ 204 mls/hr Q4H PRN IV 02/24/18 19:00 03/26/18 18:59 Lactated Ringer's 1,000 ml @ 125 mls/hr Q8H IV 02/24/18 20:30 03/26/18 20:29 Diphenhydramine HCl (Benadryl Inj) 25 mg Q4H PRN IV 02/24/18 20:30 03/26/18 20:29 Cefazolin Sodium 1000 mg/Syringe 7.5 ml @ 2.5 mls/min Q8H IV 02/25/18 00:00 02/25/18 16:02 02/25/18 07:29 2.5 MLS/MIN Magnesium Oxide (Mag-Ox Tab) 400 mg Q4H PO 02/25/18 06:45 02/25/18 14:46 02/25/18 12:09 400 MG Docusate Sodium (coLACE CAP) 100 mg DAILY PRN PO 02/25/18 13:45 03/27/18 13:44 Polyethylene (Miralax Powder Packet) 17 gm DAILY PRN PO 02/25/18 13:45 03/27/18 13:44 Vital Signs: Date Time Temp Pulse Resp B/P (MAP) Pulse Ox O2 Delivery O2 Flow Rate FiO2 02/25/18 12:00 Room Air 02/25/18 10:00 113 23 127/84 (98) 98 Room Air 02/25/18 08:00 Room Air 02/25/18 08:00 36.9 72 20 111/76 (88) 98 Room Air 02/25/18 06:01 85 21 109/61 (77) 98 Room Air 02/25/18 05:01 102 18 122/66 (84) 98 Room Air 02/25/18 04:01 37.1 93 21 104/65 (78) 98 Room Air 02/25/18 04:00 Room Air 02/25/18 03:01 95 19 108/68 (81) 98 Room Air 02/25/18 02:02 90 18 115/74 (88) 98 Room Air 02/25/18 01:01 96 18 118/76 (90) 99 Room Air 02/25/18 00:01 36.4 100 21 133/86 (102) 98 Room Air 02/25/18 00:00 Room Air 02/24/18 22:00 109 15 129/80 (96) 100 Nasal Cannula 2.0 02/24/18 21:31 15 118/77 (91) 100 Nasal Cannula 2.0 02/24/18 21:00 97 116/78 (91) 97 Nasal Cannula 2.0 02/24/18 20:45 97 132/87 (102) 100 Nasal Cannula 2.0 02/24/18 20:30 118 130/83 (99) 100 Nasal Cannula 2.0 02/24/18 20:00 16 121/75 (90) 100 Nasal Cannula 2.0 02/24/18 19:50 89 12 126/93 100 Nasal Cannula 2 02/24/18 19:40 36.6 96 16 116/85 100 Nasal Cannula 2 02/24/18 19:30 87 15 123/81 100 Nasal Cannula 2 02/24/18 19:20 93 21 121/80 100 Nasal Cannula 2 02/24/18 19:10 101 20 129/74 100 Nasal Cannula 2 02/24/18 19:00 100 18 128/82 100 Oxymask 10 02/24/18 18:50 116 23 132/79 100 Oxymask 10 02/24/18 18:43 36.3 120 21 138/82 100 Oxymask 10 02/24/18 14:50 36.5 123 20 131/71 (91) 100 Room Air 02/24/18 14:48 36.5 134 23 131/75 100 02/24/18 14:23 134 23 02/24/18 14:18 132 20 02/24/18 14:13 145 15 02/24/18 14:08 142 14 02/24/18 14:06 131/75 02/24/18 14:05 128 02/24/18 14:03 129 11 100 02/24/18 14:01 120 18 129/78 99 Room Air 02/24/18 13:59 129/78 Laboratory Results: Last 24 Hours Test 02/24/18 16:30 02/24/18 19:33 02/25/18 00:01 02/25/18 01:20 Bedside Hemoglobin 8.2 g/dl Bedside Hematocrit 24 % Bedside Sodium 140 mEq/L Bedside Potassium 3.5 mEq/L Bedside Chloride 108 mEq/L Bedside Total CO2 22 mEq/l Anion Gap 15.0 mmol/L 7.0 mmol/L Bedside Blood Urea Nitrogen < 3 mg/dl Bedside Creatinine 0.5 mg/dl Bedside Glucose (other) 127 mg/dl Bedside Ionized Calcium (Kenan) 1.04 mmol/l Hemoglobin 11.1 g/dL 11.6 g/dL Hematocrit 32.5 % 32.3 % Prothrombin Time 11.5 SECONDS Prothromb Time International Ratio 1.1 Activated Partial Thromboplast Time 29.2 SECONDS Partial Thromboplastin Ratio 1.1 Fibrinogen 193 mg/dl Human Chorionic Gonadotropin, Quant 1118 mIU/mL Bedside Glucose 122 mg/dl Sodium Level 137 mmol/L Potassium Level 3.5 mmol/L Chloride Level 107 mmol/L Carbon Dioxide Level 23 mmol/L Blood Urea Nitrogen 5 mg/dl Creatinine 0.44 mg/dl Est Creatinine Clear Calc Drug Dose 196.2 ml/min Estimated GFR () > 150.0 Estimated GFR (Non- 140.3 BUN/Creatinine Ratio 11.2 Random Glucose 124 mg/dl Calcium Level 6.9 mg/dl Ionized Calcium 0.99 mmol/l Test 02/25/18 05:16 02/25/18 09:04 02/25/18 13:09 White Blood Count 14.79 K/uL Red Blood Count 3.45 M/uL Hemoglobin 10.8 g/dL 11.2 g/dL Hematocrit 30.2 % 31.7 % Mean Corpuscular Volume 87.5 fL Mean Corpuscular Hemoglobin 31.3 pg Mean Corpuscular Hemoglobin Concent 35.8 g/dl RDW Standard Deviation 43.4 fL RDW Coefficient of Variation 13.4 % Platelet Count 160 K/uL Mean Platelet Volume 9.0 fL Phosphorus Level 2.5 mg/dl Magnesium Level 1.5 mg/dl Human Chorionic Gonadotropin, Quant 1423 mIU/mL
[2018-02-25] MEDS ORDERED: BISACODYL 5 MG TABEC PO ONE (21:15)
[2018-02-26] MEDS: OXYCODONE/ACETAMINOPHEN 5-325 TAB PO PRN ×6 (00:35→21:40)
[2018-02-26 04:10] VITALS: BP 106/63; PULSE 78; TEMP 37; O2SAT 98
[2018-02-26 07:30] VITALS: BP 116/70; PULSE 78; TEMP 36.9; O2SAT 98
[2018-02-26] MEDS: DOCUSATE SODIUM 100 MG CAP PO PRN (08:09)
[2018-02-26] MEDS: POLYETHYLENE (MIRALAX) 17 GM PACK PO PRN (08:09)
--- NOTE | 2018-02-26 09:53 | OB/GYN Progress Note ---
SENIOR ECONOMIST Progress Note Date of Service: Feb 26, 2018. Patient is seen and examined. She feels well, no complaints. Pain is under control with oral meds. Ambulating without dizziness Voiding without difficulty Tolerating clear diet with out N&V Flatus neg BM neg Bleeding is minimal No fever/ chills/ CP/ SOB/ N&V/ Leg pain Date Time Temp Pulse Resp B/P (MAP) Pulse Ox O2 Delivery O2 Flow Rate FiO2 02/26/18 07:30 36.9 78 16 116/70 (85) 98 Room Air 02/26/18 07:30 98 Room Air 02/26/18 04:10 37.0 78 18 106/63 (77) 98 Room Air 02/25/18 23:30 98 Room Air 02/25/18 23:30 37.0 94 18 115/73 (87) 98 Room Air 02/25/18 15:15 99 Room Air 02/25/18 15:15 36.8 103 18 117/74 (88) 99 Room Air 02/25/18 12:00 Room Air 02/25/18 10:00 113 23 127/84 (98) 98 Room Air Last 24 Hours Test 02/25/18 13:09 Hemoglobin 11.2 g/dL Hematocrit 31.7 % Results Past 24 Hours Test 02/25/18 13:09 Range/Units Hemoglobin 11.2 12.0-16.0 g/dL Hematocrit 31.7 37-47 % PE: General: Alert, orientedx3, NAD CVS: S1S2 RRR Lungs; CTAB Abd: soft, NT, ND, BS+ sluggish, Incision: Clean, dry, abhinav intact No VB Ext; NT, no edema AP: 27 yo s/p EUA, laparoscopy, evacuation of blood and cloths from abdomen/ pelvis, Ex lap, control of bleeding from spleen, pod# 2 VSS Afebrile doing well s/p 3 units of PRBC in OR H&H stable LMP 01/17/18: 6.6 WKS , BHCG 1153 on 02/23 evening, 1400+ 02/25 am, no IUP per last US No signs of ectopic per laparoscopy and laparotomy, normal tubes and ovaries Plan to repeat q 48 hours, next tomorrow am Pelvic US if above 1500 Slow bowel fx, s/p NGT, Abdomen not distended Continue with clears Plan per G. Surgery Continue to monitor closely Encourage ambulation All questions were answered
[2018-02-26 11:50] VITALS: BP 119/71; PULSE 79; TEMP 37.1; O2SAT 99
[2018-02-26 12:01] LABS: HEMATOCRIT 28.1 % (37-47); HEMOGLOBIN 9.7 g/dL (12.0-16.0)
--- NOTE | 2018-02-26 12:38 | Surgery Progress Note ---
Surgery Progress Note Date of Service Feb 26, 2018. Subjective Post OP Day: 2 (s/p diagnostic laparoscopy converted to ex lap control of intra -abdominal bleeding) + feeling well, + complaints (moderate abdominal pain, controlled), + ambulating , + pain controlled, + nausea, + diet (clear liquids), No chest pain, No SOB, No bowel movement, No flatus, No vomiting mild nausea intermittently, no immediately after clear liquids some bloating and sensation of gas some subdiaphragmatic pain no chest pain or shortness of breath Feels better when ambulating in regards to abdominal gas and pressure Objective Vital Signs: Date Time Temp Pulse Resp B/P (MAP) Pulse Ox O2 Delivery O2 Flow Rate FiO2 02/26/18 11:50 37.1 79 16 119/71 (87) 99 Room Air 02/26/18 07:30 36.9 78 16 116/70 (85) 98 Room Air 02/26/18 07:30 98 Room Air 02/26/18 04:10 37.0 78 18 106/63 (77) 98 Room Air 02/25/18 23:30 98 Room Air 02/25/18 23:30 37.0 94 18 115/73 (87) 98 Room Air 02/25/18 15:15 99 Room Air 02/25/18 15:15 36.8 103 18 117/74 (88) 99 Room Air General Appearance: WD/WN, no apparent distress Head: normocephalic, atraumatic Neck: trachea midline Respiratory/Chest: no respiratory distress, no accessory muscle use Abdomen: soft, no organomegaly, no pulsatile mass, + abnormal bowel sounds ( hypoactive bowel sounds), + distended, + tenderness (at midline incision appropriate post op) Incision(s): clean, dry, intact, no erythema, no drainage Laboratory Results: Results Past 24 Hours Test 02/25/18 13:09 02/26/18 11:37 Range/Units Hemoglobin 11.2 9.7 12.0-16.0 g/dL Hematocrit 31.7 28.1 37-47 % Assessment & Plan POD # 2 s/p diagnostic laparoscopy converted to ex lap for control of intra- abdominal bleeding, posterior splenic bleeding -vitals stable, afebrile, HR regular, no tachycardia - abdominal pain moderate but controlled - abdominal bloating, not passing flatus or bowel movement - tolerating clears - h&H 9.7/ (yesterday 11.2/31.7) - S/p transfusion of 3 units of PRBCs intraoperatively for blood loss Plan: Repeat H&H tomorrow morning monitor vitals closely Continue clear liquids for now, mostly likely has post op ileus continue bowel regimen: stool softener /Miralax Encouraged oob to chair and ambulation Patient seen with Dr. Malagon at 4:00 pm passed some flatus, feeling slightly better since then diet advanced to regular diet continue bowel regimen and ambulation repeat H&H in am
[2018-02-26 15:35] VITALS: BP 123/77; PULSE 85; TEMP 36.5; O2SAT 98
[2018-02-26 18:55] VITALS: BP 127/74; PULSE 84; TEMP 36.6; O2SAT 98
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
[2018-02-26 23:15] VITALS: BP 118/69; PULSE 80; TEMP 36.8; O2SAT 98
[2018-02-27 01:30] VITALS: BP 120/80; PULSE 78; TEMP 37.1; O2SAT 99
[2018-02-27] MEDS: OXYCODONE/ACETAMINOPHEN 5-325 TAB PO PRN ×5 (01:32→20:03)
[2018-02-27 05:45] VITALS: BP 109/67; PULSE 85; TEMP 37; O2SAT 98
[2018-02-27 08:14] LABS: HEMATOCRIT 28.6 % (37-47); HEMOGLOBIN 9.8 g/dL (12.0-16.0)
[2018-02-27 08:15] VITALS: BP 118/74; PULSE 80; TEMP 36.9; O2SAT 99
--- NOTE | 2018-02-27 08:20 | Surgery Progress Note ---
Surgery Progress Note Date of Service Feb 27, 2018. Subjective Post OP Day: 3 + feeling well, + flatus, + nausea (occasional mild), + diet (tolerating diet), No bowel movement, No vomiting Objective Vital Signs: Date Time Temp Pulse Resp B/P (MAP) Pulse Ox O2 Delivery O2 Flow Rate FiO2 02/27/18 05:45 37.0 85 16 109/67 (81) 98 Room Air 02/27/18 01:30 99 Room Air 02/27/18 01:30 37.1 78 16 120/80 (93) 99 Room Air 02/26/18 23:15 Room Air 02/26/18 23:15 36.8 80 16 118/69 (85) 98 Room Air 02/26/18 18:55 36.6 84 18 127/74 (91) 98 Room Air 02/26/18 15:35 98 Room Air 02/26/18 15:35 36.5 85 18 123/77 (92) 98 Room Air 02/26/18 11:50 37.1 79 16 119/71 (87) 99 Room Air Abdomen: non distended, soft, + tenderness (incisional only) Incision(s): clean, dry, intact, no erythema, no drainage Laboratory Results: Results Past 24 Hours Test 02/26/18 11:37 02/27/18 07:56 Range/Units Hemoglobin 9.7 9.8 12.0-16.0 g/dL Hematocrit 28.1 28.6 37-47 % Assessment & Plan S/P exploratory lap for bleeding Stable hemodynamically H&H stable No evidence of ongoing bleeding Encourage PO and ambulation
--- NOTE | 2018-02-27 09:24 | OB/GYN Progress Note ---
SCIENTIFIC SOFTWARE DEVELOPER Progress Note Date of Service Feb 27, 2018. Subjective conversation w/ patient, physical exam Ambulation: limited ambulation Voiding: no voiding problems Passing Gas: Yes Diet Tolerance: Regular Diet Notes: Doing well, this morning. Pain well controlled. Incisions dressing was removed this morning and is c/d/i. Tolerating regular diet, +flatus, -BM. Objective Vital Signs Date Time Temp Pulse Resp B/P (MAP) Pulse Ox O2 Delivery O2 Flow Rate FiO2 02/27/18 08:15 99 Room Air 02/27/18 08:15 36.9 80 22 118/74 (89) 99 Room Air 02/27/18 05:45 37.0 85 16 109/67 (81) 98 Room Air 02/27/18 01:30 99 Room Air 02/27/18 01:30 37.1 78 16 120/80 (93) 99 Room Air 02/26/18 23:15 Room Air 02/26/18 23:15 36.8 80 16 118/69 (85) 98 Room Air 02/26/18 18:55 36.6 84 18 127/74 (91) 98 Room Air 02/26/18 15:35 98 Room Air 02/26/18 15:35 36.5 85 18 123/77 (92) 98 Room Air 02/26/18 11:50 37.1 79 16 119/71 (87) 99 Room Air Physical Exam General Appearance: WELL-APPEARING Respiratory/Chest: chest non-tender, lungs clear Cardiovascular: regular rate, rhythm Abdomen: normal bowel sounds, soft Extremities: normal range of motion, non-tender, no calf tenderness Laboratory Results Last 24 Hours Test 02/26/18 11:37 02/27/18 07:56 Hemoglobin 9.7 g/dL 9.8 g/dL Hematocrit 28.1 % 28.6 % Human Chorionic Gonadotropin, Quant 1866 mIU/mL Assessment and Plan Post-Op Day Number: 3 Continue Routine Care: s/p EUA, laparoscopy, evacuation of blood and cloths from abdomen/ pelvis, Ex lap, control of bleeding from spleen VSS Afebrile doing well s/p 3 units of PRBC in OR -HCG this AM 1866, will repeat US today and repeat HCG in 48 hours. -H&H stable, hgb 9.8 this AM -Advance activity as tolerated
--- NOTE | 2018-02-27 11:35 | DIAGNOSTIC IMAGING REPORT ---
ULTRASOUND CLINICAL HISTORY: Early , inappropriate rise in HCG. Status post laparoscopy with evacuation from blood clot within the abdomen and pelvis. COMPARISON STUDY: ultrasound February 23, 2018. TECHNIQUE: Transabdominal and transvaginal sonography of the pelvis was performed. FINDINGS: The uterus measures 8.5 x 5 x 5.9 cm. Note is made of an intrauterine gestational sac with a mean sac diameter of 0.59 cm. The sac has increased in size since exam of February 23, 2018. A yolk sac, measuring 0.15 cm in size is now noted. A probable pole with a crown-rump length of 0.23 cm is noted. No cardiac activity is identified although this likely reflects a normal early intrauterine gestation. No subchorionic hematoma is noted. The right ovary was not visualized. The left ovary measures 4.3 x 2.1 x 2.3 cm and contains a 2.4 cm suspected corpus luteal cyst. A moderate amount of complex fluid is noted within the abdomen and pelvis. Comparison by sonography is difficult, however the amount of fluid is likely diminished since exam of February 23, 2018. IMPRESSION: 1. Interval increase in size of the intrauterine gestational sac with visualization of a yolk sac and probable pole. No cardiac activity identified although this likely reflects a normal early intrauterine gestation. Continued follow-up including serial beta hCG levels and ultrasound is recommended. 2. Moderate amount of fluid within the abdomen and pelvis. The amount and complexity of the fluid has diminished since previous exam. This may reflect residual hemoperitoneum. 3. Left ovarian corpus luteal cyst. Obscured right ovary. Electronically signed by: Jermain Moscoso M.D. 02/27/2018 11:34 AM Dictated Date/Time: 02/27/2018 11:24 AM
[2018-02-27 11:58] VITALS: BP 125/73; PULSE 88; TEMP 36.9; O2SAT 98
[2018-02-27] MEDS: POLYETHYLENE (MIRALAX) 17 GM PACK PO PRN (14:33)
[2018-02-27] MEDS: DOCUSATE SODIUM 100 MG CAP PO PRN (14:36)
[2018-02-27 15:50] VITALS: BP 119/83; TEMP 36.9; O2SAT 96
[2018-02-27 20:00] VITALS: BP 102/62; PULSE 96; TEMP 36.5; O2SAT 97
[2018-02-28] VITALS: BP 109/67; PULSE 86; TEMP 36.9; O2SAT 97
[2018-02-28] MEDS: OXYCODONE/ACETAMINOPHEN 5-325 TAB PO PRN ×4 (00:07→12:11)
[2018-02-28 06:18] LABS: HEMATOCRIT 29.9 % (37-47); HEMOGLOBIN 10.4 g/dL (12.0-16.0)
--- NOTE | 2018-02-28 06:43 | Surgery Progress Note ---
Surgery Progress Note Date of Service Feb 28, 2018. Subjective doing well- H/H improved this am tolerating diet Objective Vital Signs: Date Time Temp Pulse Resp B/P (MAP) Pulse Ox O2 Delivery O2 Flow Rate FiO2 02/28/18 00:00 36.9 86 16 109/67 (81) 97 Room Air 02/28/18 00:00 97 Room Air 02/27/18 20:00 36.5 96 18 102/62 (75) 97 Room Air 02/27/18 15:50 36.9 18 119/83 (95) 96 Room Air 02/27/18 15:50 96 Room Air 02/27/18 11:58 36.9 88 20 125/73 (90) 98 Room Air 02/27/18 08:15 99 Room Air 02/27/18 08:15 36.9 80 22 118/74 (89) 99 Room Air General Appearance: no apparent distress Respiratory/Chest: no respiratory distress Abdomen: soft Incision(s): intact Laboratory Results: Results Past 24 Hours Test 02/27/18 07:56 02/28/18 05:54 Range/Units Hemoglobin 9.8 10.4 12.0-16.0 g/dL Hematocrit 28.6 29.9 37-47 % Human Chorionic Gonadotropin, Quant 1866 mIU/mL Assessment & Plan 02/28/18- H/H stable- can d/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
[2018-02-28 08:00] VITALS: BP 128/72; PULSE 83; TEMP 37.1; O2SAT 99
[2018-02-28] MEDS: DOCUSATE SODIUM 100 MG CAP PO PRN (08:40)
[2018-02-28 09:06] VITALS: BP 128/72; PULSE 83; TEMP 37.1; O2SAT 99
[2018-02-28] MEDS ORDERED: OXYC-57 PO (10:45)
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
--- NOTE | 2018-02-28 10:50 | Surgery Progress Note ---
Surgery Progress Note Date of Service Feb 28, 2018. Subjective Post OP Day: 4 + feeling well, + ambulating, + bowel movement, + flatus, + pain controlled Objective Vital Signs: Date Time Temp Pulse Resp B/P (MAP) Pulse Ox O2 Delivery O2 Flow Rate FiO2 02/28/18 09:06 37.1 83 16 99 Room Air 02/28/18 08:00 37.1 83 16 128/72 (90) 99 Room Air 02/28/18 08:00 99 Room Air 02/28/18 00:00 36.9 86 16 109/67 (81) 97 Room Air 02/28/18 00:00 97 Room Air 02/27/18 20:00 36.5 96 18 102/62 (75) 97 Room Air 02/27/18 15:50 36.9 18 119/83 (95) 96 Room Air 02/27/18 15:50 96 Room Air 02/27/18 11:58 36.9 88 20 125/73 (90) 98 Room Air General Appearance: no apparent distress Abdomen: non tender, non distended, soft Incision(s): clean, dry, intact Extremities: non-tender, normal inspection, no pedal edema, no calf tenderness Laboratory Results: Results Past 24 Hours Test 02/28/18 05:54 Range/Units Hemoglobin 10.4 12.0-16.0 g/dL Hematocrit 29.9 37-47 % Assessment & Plan follow hcg/CBC regular diet POD#4 f/u in office next week repeat hcg next week
== END 2018-02-28 14:30 | disposition home or self-care (01) | DRG 781 ==
LOC: C.EDB 13:00 → C.MSICU 19:04 → ENRESERV 19:05 → EDBEDREQ 02-25 13:55 → ENRESERV 02-25 14:27 → C.MS4N 02-25 15:09
PROVIDERS: ADMIT Obstetrics & Gynecology; ATTEND Obstetrics & Gynecology
PROC: 0W3H0ZZ Control Bleeding in Retroperitoneum, Open Approach (ICD-10-PCS; principal; 2018-02-24 13:15)
PROC: 0WCJ4ZZ Extirpation of Matter from Pelvic Cavity, Percutaneous Endoscopic Approach (ICD-10-PCS; 2018-02-24 13:15)
PROC: 0W9J4ZZ Drainage of Pelvic Cavity, Percutaneous Endoscopic Approach (ICD-10-PCS; 2018-02-24 13:15)
DX: O9A.211 Injury, poisoning and certain other consequences of external causes complicating pregnancy, first trimester (principal); S36.039A Unspecified laceration of spleen, initial encounter; O99.611 Diseases of the digestive system complicating pregnancy, first trimester; K66.1 Hemoperitoneum; O99.011 Anemia complicating pregnancy, first trimester; D62 Acute posthemorrhagic anemia; O26.891 Other specified pregnancy related conditions, first trimester; N83.12 Corpus luteum cyst of left ovary; Z53.31 Laparoscopic surgical procedure converted to open procedure; Z3A.01 Less than 8 weeks gestation of pregnancy; Z82.49 Family history of ischemic heart disease and other diseases of the circulatory system; X58.XXXA Exposure to other specified factors, initial encounter

== ENCOUNTER 2018-03-08 22:14 | Emergency (ER) | payer OTHER ==
[~2018-03-08] VITALS: Ht 172.7 cm; Wt 53.0 kg
[~2018-03-08 22:14] MED LIST: OXYC-57 PO
[2018-03-08 22:19] VITALS: Ht 172.7 cm; Wt 53.0 kg
[2018-03-08] MEDS ORDERED: SODIUM CHLORIDE 0.9% 1000ML 1,000 ML IV STA (22:40)
[2018-03-08] MEDS ORDERED: OXYCODONE/ACETAMINOPHEN 5-325 TAB PO ONE (23:00)
[2018-03-08 23:21] LABS: BASO % 0.4 %; BASO ABS # 0.04 K/uL (0-0.2); EOS % 1.4 %; EOS ABS # 0.16 K/uL (0-0.5); HEMATOCRIT 35.6 % (37-47); HEMOGLOBIN 11.9 g/dL (12.0-16.0); IG# 0.03 K/uL (0.00-0.02); LYMPH % 21.9 %; LYMPH ABS # 2.49 K/uL (1.2-3.4); MEAN CELL VOLUME 91.3 fL (80-100); MEAN CORPUSCULAR HEMOGLOBIN 30.5 pg (25-34); MEAN CORPUSCULAR HGB CONC 33.4 g/dl (32-36); MEAN PLATELET VOLUME 8.6 fL (7.4-10.4); MONO % 5.6 %; MONO ABS # 0.64 K/uL (0.11-0.59); NEUT % 70.4 %; NEUT ABS # 8.02 K/uL (1.4-6.5); PLATELET COUNT 507 K/uL (130-400); RED CELL DISTRIBUTION WIDTH CV 13.1 % (11.5-14.5); RED CELL DISTRIBUTION WIDTH SD 43.6 fL (36.4-46.3); WHITE BLOOD COUNT 11.38 K/uL (4.8-10.8)
[2018-03-08 23:37] LABS: ALBUMIN 3.6 gm/dl (3.4-5.0); ALT/SGPT 22 U/L (12-78); BLOOD UREA NITROGEN 7 mg/dl (7-18); CALCIUM 8.8 mg/dl (8.5-10.1); CARBON DIOXIDE 25 mmol/L (21-32); CREATININE 0.78 mg/dl (0.60-1.20); GLUCOSE 106 mg/dl (70-99); LIPASE 100 U/L (73-393); POTASSIUM 3.2 mmol/L (3.5-5.1); SODIUM 137 mmol/L (136-145)
[2018-03-08 23:40] LABS: ALKALINE PHOSPHATASE 111 U/L (45-117); AST/SGOT 9 U/L (15-37)
--- NOTE | 2018-03-09 00:49 | EMERGENCY ROOM VISIT NOTE ---
History Report prepared by Jeremy: Ed López Under the Supervision of: Dr. Lucas Kraus M.D. First contact with patient: 22:23 Chief Complaint: PAIN (GENERALIZED) Stated Complaint: SEVERE PAIN,JUST HAD MAJOR SURGERY 2 WEEKS AGO History of Present Illness The patient is a 27 year old female who presents to the Emergency Room with complaints of sharp abdominal pain that began this morning several hours ago, after taking her last Percocet. She states her pain is most present under her ribs. The patient is currently 2 weeks status post surgery for a lacerated spleen. The patient is currently 4 weeks and was found to have an abdominal cavity full of blood secondary to the spleen laceration. This morning she ran out of her post operative prescription and started to experience constant pain that she rates a 10/10 in severity. The patient is P:2 A:1 Source of History: patient Onset: Several hours ago Position: abdomen Symptom Intensity: 10/10 Quality: sharp Timing: constant Review of Systems See HPI for pertinent positives & negatives. A total of 10 systems reviewed and were otherwise negative. Past Medical & Surgical Medical Problems: (1) Chronic low back pain (2) Hemorrhage intraabdominal (3) Positive test (4) Tobacco Use Disorder Surgical Problems: (1) No history of previous surgery Old medical records were reviewed. Nurse's notes were reviewed and I agree with. Family History Hypertension Social History Smoking Status: Never Smoker Alcohol Use: occasionally Drug Use: none Marital Status: in relationship Housing Status: lives with family Occupation Status: employed Current/Historical Medications No Active Prescriptions or Reported Meds Allergies Coded Allergies: No Known Allergies (Unverified , NONE, 03/08/18) Physical Exam Vital Signs Date Time Temp Pulse Resp B/P (MAP) Pulse Ox O2 Delivery O2 Flow Rate FiO2 03/09/18 02:27 84 19 131/60 100 Room Air 03/09/18 01:27 80 18 116/68 98 Room Air 03/09/18 00:19 78 18 122/62 99 Room Air 03/08/18 22:19 36.7 117 18 157/82 100 Room Air Physical Exam General: Young female in no acute distress. HEENT: Normal cephalic atraumatic. Pupils are equal round and reactive to light. Extraocular movements are intact. Oropharynx is pink with moist mucous membranes. No swelling of the mouth lips or tongue. Neck: Supple with a midline trachea. No meningeal signs or stiffness, no JVD or bruits. No Stridor. Chest: Clear to auscultation bilaterally. No wheezes or rhonchi. No increased work of breathing. Heart: regular rate and rhythm. Abdomen: Soft and nondistended with a well healing surgical incision, she is mildly tender diffusely in the abdomen around the surgical site.without rebound guarding or rigidity. Extremities: No cyanosis clubbing or edema. No calf tenderness or assymetry Spine/Back. Non tender to palpation. No CVA tenderness Skin: Good turgor without rashes. Neurologic exam: Cranial nerves two through 12 are intact. Motor and sensation are intact and symmetrical throughout. Medical Decision & Procedures ER Provider Diagnostic Interpretation: Radiology results as stated below per my review and radiologist interpretation: US OB/ENDOVAG: A gesttational sac is identified in the uterus with a prominent yolk sac noted internally. Questionable pole measures only 3.6 mm consistent with 6 week 0 days. No heart tones identified at this time. Recommend correlation with beta-hCG levels and follow-up imaging as appropriate. The right ovary is not identified. Left ovary measures 4.1 x 2.4 x 2.7 cm. Shannan flow noted. Hypoechoic structure noted adjacent to the ovary noted with thin septations. This may represent a pedunculated ovarian cyst versus adnexal/broad ligament cyst. Attention to his region on follow-up imaging is suggested. No significant free fluid in the pelvis. Radiologist: Chacho Encarnacion MD US ABDOMEN LIMITED: The spleen is homogeneous measuring 11.3 cm in length. Normal vascular perfusion of the splenic hilum is noted. No free fluid with evaluation of all 4 quadrants. Radiologist: Chacho Encarnacion MD Laboratory Results 03/08/18 22:56 Red Blood Count 3.90, Mean Corpuscular Volume 91.3, Mean Corpuscular Hemoglobin 30.5, Mean Corpuscular Hemoglobin Concent 33.4, Mean Platelet Volume 8.6, Neutrophils (%) (Auto) 70.4, Lymphocytes (%) (Auto) 21.9, Monocytes (%) (Auto) 5.6, Eosinophils (%) (Auto) 1.4, Basophils (%) (Auto) 0.4, Neutrophils # (Auto) 8.02, Lymphocytes # (Auto) 2.49, Monocytes # (Auto) 0.64, Eosinophils # (Auto) 0.16, Basophils # (Auto) 0.04 03/08/18 22:56 Test 03/08/18 22:56 White Blood Count 11.38 K/uL (4.8-10.8) Red Blood Count 3.90 M/uL (4.2-5.4) Hemoglobin 11.9 g/dL (12.0-16.0) Hematocrit 35.6 % (37-47) Mean Corpuscular Volume 91.3 fL (80-100) Mean Corpuscular Hemoglobin 30.5 pg (25-34) Mean Corpuscular Hemoglobin Concent 33.4 g/dl (32-36) Platelet Count 507 K/uL (130-400) Mean Platelet Volume 8.6 fL (7.4-10.4) Neutrophils (%) (Auto) 70.4 % Lymphocytes (%) (Auto) 21.9 % Monocytes (%) (Auto) 5.6 % Eosinophils (%) (Auto) 1.4 % Basophils (%) (Auto) 0.4 % Neutrophils # (Auto) 8.02 K/uL (1.4-6.5) Lymphocytes # (Auto) 2.49 K/uL (1.2-3.4) Monocytes # (Auto) 0.64 K/uL (0.11-0.59) Eosinophils # (Auto) 0.16 K/uL (0-0.5) Basophils # (Auto) 0.04 K/uL (0-0.2) RDW Standard Deviation 43.6 fL (36.4-46.3) RDW Coefficient of Variation 13.1 % (11.5-14.5) Immature Granulocyte % (Auto) 0.3 % Immature Granulocyte # (Auto) 0.03 K/uL (0.00-0.02) Urine Color YELLOW Urine Appearance CLEAR (CLEAR) Urine pH 7.0 (4.5-7.5) Urine Specific [place] 1.005 (1.000-1.030) Urine Protein NEG (NEG) Urine Glucose (UA) NEG (NEG) Urine Ketones NEG (NEG) Urine Occult Blood NEG (NEG) Urine Nitrite NEG (NEG) Urine Bilirubin NEG (NEG) Urine Urobilinogen NEG (NEG) Urine Leukocyte Esterase SMALL (NEG) Urine WBC (Auto) /hpf (0-5) Urine RBC (Auto) /hpf (0-4) Urine Hyaline Casts (Auto) /lpf (0-5) Urine Epithelial Cells (Auto) /lpf (0-5) Urine Bacteria (Auto) (NEG) Urine RBC 0-4 /hpf (0-4) Urine WBC 5-10 /hpf (0-5) Urine Epithelial Cells 10-20 /lpf (0-5) Urine Bacteria NEG (NEG) Anion Gap 8.0 mmol/L (3-11) Est Creatinine Clear Calc Drug Dose 92.2 ml/min Estimated GFR () 122.5 Estimated GFR (Non- 105.7 BUN/Creatinine Ratio 8.4 (10-20) Calcium Level 8.8 mg/dl (8.5-10.1) Total Bilirubin 0.2 mg/dl (0.2-1) Direct Bilirubin < 0.1 mg/dl (0-0.2) Aspartate Amino Transf (AST/SGOT) 9 U/L (15-37) Alanine Aminotransferase (ALT/SGPT) 22 U/L (12-78) Alkaline Phosphatase 111 U/L (45-117) Total Protein 8.0 gm/dl (6.4-8.2) Albumin 3.6 gm/dl (3.4-5.0) Lipase 100 U/L (73-393) Human Chorionic Gonadotropin, Quant 82150 mIU/mL Laboratory studies as stated above per my review. Medications Administered Medications (Trade) Dose Ordered Sig/Yamilet Route Start Time Stop Time Status Last Admin Dose Admin Sodium Chloride 1,000 ml @ 999 mls/hr Q1H1M STAT IV 03/08/18 22:40 03/08/18 23:40 DC 03/08/18 23:03 999 MLS/HR Oxycodone/ Acetaminophen (Percocet 5-325mg Tab) 1 tab NOW ONCE PO 03/08/18 23:00 03/08/18 23:01 DC 03/08/18 23:05 1 TAB Oxycodone/ Acetaminophen (Percocet 5/ 325MG Home Pack) 1 homepack UD ONCE PO 03/09/18 02:15 03/09/18 02:21 DC 03/09/18 02:26 1 HOMEPACK Oxycodone/ Acetaminophen (Percocet 5-325mg Tab) 1 tab NOW STAT PO 03/09/18 02:14 03/09/18 02:21 DC 03/09/18 02:26 1 TAB ED Course 0: Past medical records reviewed. The patient was evaluated in room C7, and a complete history and physical examination were performed. 2240: Ordered Sodium Chloride 1000 mL @ 999 mL/hr IV 2300: Oxycodone/Acetaminophen 1 tablet PO. 0207: I discussed the case with Dr. Castillo - General Surgery. He is in agreement with the treatment plan. 0211: I discussed the case with Dr. Luz OCHOA. He is in agreement with the treatment plan. 0218: Upon reevaluation, the patient is resting in bed and appears comfortable. She would like another Percocet. I discussed the results and treatment plan with her. She verbalized agreement of the treatment plan. The patient was discharged home. Medical Decision Differential Diagnosis includes; Post operative pain, infection, ruptured spleen , complication, hemoperitoneum, anemia. This patient comes in as described above she has abdominal pain. She has a very complicated medical history as of late. She is 4 weeks and had emergency surgery just over a week ago for hemoperitoneum. It ended up being due to a splenic laceration. She has been doing well since then. She has been requiring Percocet for pain and she ran out of it. The pain is adequately controlled as long as she has her pain medication. She has had no vaginal bleeding. No fever or chills. No abdominal distention, lightheadedness, or dizziness. On exam, her incision appears to be intact without evidence of infection. IV access established and blood work was obtained. Her hemoglobin actually increased at 11.9 compared to last. She has no acute electrolyte or metabolic abnormalities. He did ultrasounds of the abdomen and pelvis. There is no free fluid. There is an IUP. There are no other acute intra-abdominal abnormalities there is no evidence of any current splenic problems. At this point, there is nothing to suggest ectopic or intraperitoneal bleed. I think her pain is most likely postoperative and she ran out of her pain medication. She felt much better after we gave her Percocet. She requested a second Percocet before going and ask for home pack. Apparently her doctor has written her prescription that she can get filled tomorrow. She has an appointment to see her delicatessen slicer on Friday and her surgeon on Friday. I did discuss the case with both Dr. Castillo her surgeon and Dr. [place], the delicatessen slicer ironworker, and they agree with the plan. She will be discharged to home. She will return if: Increasing pain, worsening of symptoms, fever or chills, any new problems or concerns. She is happy with the plan and discharged to home. Medication Reconcilliation Current Medication List: was personally reviewed by me Blood Pressure Screening Patient's blood pressure: Normal blood pressure Consults Time Called: 200 Consulting Physician: Dr. Castillo - General Surgery Returned Call: [phone] I discussed the case with Dr. Castillo - General Surgery. He is in agreement with the treatment plan. Additional Consults: Time Called: 208 Consulted Physician: Dr. Luz OCHOA Returned Call: 210 Additional Comments: I discussed the case with Dr. Luz OCHOA. He is in agreement with the treatment plan. Impression Primary Impression: Central abdominal pain Additional Impression: Intrauterine Scribe Attestation The scribe's documentation has been prepared under my direction and personally reviewed by me in its entirety. I confirm that the note above accurately reflects all work, treatment, procedures, and medical decision making performed by me. Departure Information Dispostion Home / Self-Care Prescriptions No Active Prescriptions or Reported Meds Referrals Lisandro Brambila M.D. (PCP) Patient Instructions My [facility] Problem Qualifiers
[2018-03-09] MEDS ORDERED: OXYCODONE/ACETAMINOPHEN 5-325 TAB PO STA (02:14)
[2018-03-09] MEDS ORDERED: PERCOCET HOME PACK PO ONE (02:15)
[2018-03-09 02:34] VITALS: BP 131/60; PULSE 84; TEMP 36.7; O2SAT 100
--- NOTE | 2018-03-09 06:51 | DIAGNOSTIC IMAGING REPORT ---
ULTRASOUND CLINICAL HISTORY: Pelvic pain. COMPARISON STUDY: ultrasound February 27, 2018. TECHNIQUE: Transabdominal and transvaginal sonography of the pelvis was performed. FINDINGS: The uterus measures 10.4 x 6.8 x 6.3 cm. Intrauterine gestational sac is noted with a mean sac diameter of 1.31 cm. This corresponds to an estimated gestational age of 5 weeks and 4 days. This contains a yolk sac that measures 5 mm in size. This is mildly enlarged. A possible pole is noted with a crown-rump length of 0.36 cm which would correspond to an estimated gestational age of 6 weeks and 0 days. No cardiac activity is identified. The right ovary was not visualized. The left ovary measures 4.1 x 2.4 x 2.7 cm. Note was made of a septated cystic focus within the left adnexa that measures approximately 3 cm. No significant pelvic free fluid or hemorrhage is noted. The hemorrhage on exam of February 27, 2018 has nearly completely resolved. IMPRESSION: 1. Intrauterine gestational sac identified which contains a prominent yolk sac that measures 5 mm in size which is slightly enlarged. Possible visualization of a pole which measures 0.36 cm and contains no cardiac activity. These findings may reflect a normal early intrauterine . However, continued sonographic follow-up and follow-up with serial beta hCG levels is recommended given the prominent yolk sac and questionable pole. 2. Nonvisualization of the right ovary. 3. 3 cm cystic focus with a few septations within the left adnexa which may reflect small resolving blood clot or a paraovarian cystic lesion. Electronically signed by: Jermain Moscoso M.D. 03/09/2018 6:50 AM Dictated Date/Time: 03/09/2018 6:40 AM
--- NOTE | 2018-03-09 07:11 | DIAGNOSTIC IMAGING REPORT ---
ABDOMEN LIMITED (US) CLINICAL HISTORY: eval for free fluid, left upper quadrant pain. COMPARISON STUDY: Abdomen and pelvis CT 09/11/2015. FINDINGS: Real-time sonographic imaging of the spleen was performed. The spleen measures 11.3 cm in length. No splenic masses or perisplenic fluid collections. No fluid identified within the 4 quadrants. IMPRESSION: Normal spleen. No abdominal fluid identified.. Electronically signed by: Michael Lockhart M.D. 03/09/2018 7:10 AM Dictated Date/Time: 03/09/2018 7:08 AM
== END 2018-03-09 02:35 | disposition home or self-care (01) ==
LOC: C.EDB 22:15 → C.EDA 03-09 02:35
DX: R10.9 Unspecified abdominal pain (principal); Z98.890 Other specified postprocedural states; O26.891 Other specified pregnancy related conditions, first trimester; Z3A.01 Less than 8 weeks gestation of pregnancy

== ENCOUNTER 2018-03-24 01:12 | Emergency (ER) | payer OTHER ==
[~2018-03-24] VITALS: Ht 172.7 cm; Wt 52.5 kg
[2018-03-24 01:20] VITALS: TEMP 37; Ht 172.7 cm; Wt 52.5 kg
[2018-03-24] MEDS ORDERED: PREN1TAB29 PO (01:44)
[2018-03-24] MEDS ORDERED: OXYC-643 PO (01:44)
[2018-03-24 02:13] LABS: BASO % 0.3 %; BASO ABS # 0.03 K/uL (0-0.2); EOS % 2.2 %; EOS ABS # 0.22 K/uL (0-0.5); HEMATOCRIT 32.7 % (37-47); HEMOGLOBIN 11.4 g/dL (12.0-16.0); IG# 0.02 K/uL (0.00-0.02); LYMPH % 22.4 %; LYMPH ABS # 2.28 K/uL (1.2-3.4); MEAN CELL VOLUME 88.9 fL (80-100); MEAN CORPUSCULAR HGB CONC 34.9 g/dl (32-36); MEAN PLATELET VOLUME 8.9 fL (7.4-10.4); MONO % 4.9 %; NEUT ABS # 7.13 K/uL (1.4-6.5); PLATELET COUNT 260 K/uL (130-400); RED CELL DISTRIBUTION WIDTH CV 12.6 % (11.5-14.5); RED CELL DISTRIBUTION WIDTH SD 40.8 fL (36.4-46.3); WHITE BLOOD COUNT 10.18 K/uL (4.8-10.8)
[2018-03-24 02:31] LABS: ALBUMIN 3.4 gm/dl (3.4-5.0); ALT/SGPT 23 U/L (12-78); AST/SGOT 13 U/L (15-37); BLOOD UREA NITROGEN 10 mg/dl (7-18); CALCIUM 8.7 mg/dl (8.5-10.1); CARBON DIOXIDE 24 mmol/L (21-32); CREATININE 0.72 mg/dl (0.60-1.20); GLUCOSE 97 mg/dl (70-99); POTASSIUM 3.3 mmol/L (3.5-5.1); SODIUM 137 mmol/L (136-145)
[2018-03-24 02:34] LABS: ALKALINE PHOSPHATASE 90 U/L (45-117); TOTAL PROTEIN 7.2 gm/dl (6.4-8.2)
[2018-03-24 03:08] VITALS: BP 111/51; PULSE 75; O2SAT 98
--- NOTE | 2018-03-24 06:38 | EMERGENCY ROOM VISIT NOTE ---
History Report prepared by Jeremy: Ed López Under the Supervision of: Dr. Rosario Recinos D.O. First contact with patient: 01:30 Chief Complaint: OTHER COMPLAINT Stated Complaint: HAD ABD SURG. 4 WKS AGO,NOT FEELING RIGHT,BACK DARBY History of Present Illness The patient is a 27 year old female who presents to the Emergency Room with complaints of constant pain in her lower back and flank that started at 1800 this evening, 8 hours ago. The patient also notes that she developed shortness of breath at 1800, but admits that she was feeling very anxious about her back pain due to her recent health events. She continued to mention that she had "sharp" pains in her left lower abdominal quadrant all day today, which was resolved with a bowel movement this evening. She is having normal bowel movements and is urinating normally. She mentions further symptoms such as head pressure and sinus pressure. Her two children were recently diagnosed with viral infections. The patient has a recent history of exploratory surgery due to anemic blood levels. She was found to be "bleeding behind my spleen." This all occurred as the patient is currently 6 weeks , and was at the time of surgery. P:2 A:1 Source of History: patient Onset: 8 hours ago Position: back (lower) Quality: sharp (pain in abdomen) Timing: constant Associated Symptoms: + abdominal pain, No diarrhea, No urinary symptoms Note: Head pressure, sinus congestion Review of Systems See HPI for pertinent positives & negatives. A total of 10 systems reviewed and were otherwise negative. Past Medical & Surgical Medical Problems: (1) Chronic low back pain (2) Hemorrhage intraabdominal (3) Positive test (4) Tobacco Use Disorder Surgical Problems: (1) No history of previous surgery Family History Hypertension Social History Smoking Status: Never Smoker Alcohol Use: occasionally Drug Use: none Marital Status: in relationship Housing Status: lives with family Occupation Status: employed Current/Historical Medications Scheduled Vit W/ Ferrous Fumara (), 1 TAB PO DAILY Scheduled PRN Oxycodone/Acetaminophen 5MG/325MG (Oxycodone/Acetaminophen 5MG/325MG), 1 TABLET PO HS PRN for Pain Allergies Coded Allergies: No Known Allergies (Unverified , NONE, 03/24/18) Physical Exam Vital Signs Date Time Temp Pulse Resp B/P (MAP) Pulse Ox O2 Delivery O2 Flow Rate FiO2 03/24/18 03:08 75 16 111/51 98 03/24/18 01:20 37.0 110 18 133/79 98 Room Air Physical Exam HEENT: Head - normocephalic and atraumatic Pupils are equal, round, and reactive to light. Extraocular eye muscles are intact, and sclera are anicteric. Nose - moist nasal mucosa without discharge. Mouth - moist buccal mucosa. Oropharynx is nonerythematous and there is no tonsillar exudate or edema noted. Neck: Supple; no JVD, nuchal rigidity, cervical lymphadenopathy. Heart: Regular rate and rhythm. There is a normal S1 and S2 with no murmurs, clicks, or gallops appreciated. Lungs: Clear to auscultation bilaterally with no wheezes, rales, or rhonchi. Abdomen: Soft, completely nontender, nondistended, with good bowel sounds. There are no palpable pulsatile masses or hepatosplenomegaly. There is no guarding, rigidity, or rebound noted. Back: She has reproducible discomfort over the bilateral lower rib cage posteriorly. Extremities: No evidence of cyanosis, clubbing, or edema. There are easily palpable peripheral pulses. Skin: warm and dry with good turgor and no rashes. Medical Decision & Procedures Laboratory Results 03/24/18 02:00 Red Blood Count 3.68, Mean Corpuscular Volume 88.9, Mean Corpuscular Hemoglobin 31.0, Mean Corpuscular Hemoglobin Concent 34.9, Mean Platelet Volume 8.9, Neutrophils (%) (Auto) 70.0, Lymphocytes (%) (Auto) 22.4, Monocytes (%) (Auto) 4.9, Eosinophils (%) (Auto) 2.2, Basophils (%) (Auto) 0.3, Neutrophils # (Auto) 7.13, Lymphocytes # (Auto) 2.28, Monocytes # (Auto) 0.50, Eosinophils # (Auto) 0.22, Basophils # (Auto) 0.03 03/24/18 02:00 Test 03/24/18 00:00 03/24/18 02:00 Urine Color YELLOW Urine Appearance CLEAR (CLEAR) Urine pH 7.0 (4.5-7.5) Urine Specific [place] 1.014 (1.000-1.030) Urine Protein NEG (NEG) Urine Glucose (UA) NEG (NEG) Urine Ketones NEG (NEG) Urine Occult Blood TRACE (NEG) Urine Nitrite NEG (NEG) Urine Bilirubin NEG (NEG) Urine Urobilinogen NEG (NEG) Urine Leukocyte Esterase NEG (NEG) Urine WBC (Auto) 1-5 /hpf (0-5) Urine RBC (Auto) 0-4 /hpf (0-4) Urine Hyaline Casts (Auto) 1-5 /lpf (0-5) Urine Epithelial Cells (Auto) >30 /lpf (0-5) Urine Bacteria (Auto) 1+ (NEG) White Blood Count 10.18 K/uL (4.8-10.8) Red Blood Count 3.68 M/uL (4.2-5.4) Hemoglobin 11.4 g/dL (12.0-16.0) Hematocrit 32.7 % (37-47) Mean Corpuscular Volume 88.9 fL (80-100) Mean Corpuscular Hemoglobin 31.0 pg (25-34) Mean Corpuscular Hemoglobin Concent 34.9 g/dl (32-36) Platelet Count 260 K/uL (130-400) Mean Platelet Volume 8.9 fL (7.4-10.4) Neutrophils (%) (Auto) 70.0 % Lymphocytes (%) (Auto) 22.4 % Monocytes (%) (Auto) 4.9 % Eosinophils (%) (Auto) 2.2 % Basophils (%) (Auto) 0.3 % Neutrophils # (Auto) 7.13 K/uL (1.4-6.5) Lymphocytes # (Auto) 2.28 K/uL (1.2-3.4) Monocytes # (Auto) 0.50 K/uL (0.11-0.59) Eosinophils # (Auto) 0.22 K/uL (0-0.5) Basophils # (Auto) 0.03 K/uL (0-0.2) RDW Standard Deviation 40.8 fL (36.4-46.3) RDW Coefficient of Variation 12.6 % (11.5-14.5) Immature Granulocyte % (Auto) 0.2 % Immature Granulocyte # (Auto) 0.02 K/uL (0.00-0.02) Anion Gap 5.0 mmol/L (3-11) Est Creatinine Clear Calc Drug Dose 99.0 ml/min Estimated GFR () 134.9 Estimated GFR (Non- 116.4 BUN/Creatinine Ratio 13.9 (10-20) Calcium Level 8.7 mg/dl (8.5-10.1) Total Bilirubin 0.2 mg/dl (0.2-1) Direct Bilirubin < 0.1 mg/dl (0-0.2) Aspartate Amino Transf (AST/SGOT) 13 U/L (15-37) Alanine Aminotransferase (ALT/SGPT) 23 U/L (12-78) Alkaline Phosphatase 90 U/L (45-117) Total Protein 7.2 gm/dl (6.4-8.2) Albumin 3.4 gm/dl (3.4-5.0) Laboratory results per my review. ED Course 0141: Past medical records reviewed. The patient was evaluated in room B12B. A complete history and physical exam was performed. The patient declined wanting anything for pain. Laboratory studies were drawn as above. She admits that she feels much better just being here in the emergency department. 0251: Upon reevaluation, the patient is resting in bed. She fells much better, and feels her anxiety has resolved. I discussed findings and results with her. She verbalized agreement of the treatment plan. The patient was discharged home. Medical Decision The patient is a 27 year old female who presents to the Emergency Department for lower back/flank pain. Differential diagnosis includes; low back strain, pyelonephritis, UTI, intraabdominal bleeding, and abdominal pain in first trimester . Laboratory results were reviewed and show; normal renal function, normal glucose , normal LFTs, normal WBC, hemoglobin of 11.4. Urinalysis shows trace blood and 1+ bacteria. This is a 27-year-old female patient with a extensive recent past medical and surgical history. She presents to the emergency department tonight with some left lower quadrant abdominal pain that resolved after having a bowel movement but continues to have bilateral low back pain. Patient is concerned that she could be hemorrhaging again spontaneously into her abdomen as she had done previously. On physical exam, the patient has some diffuse tenderness with palpation to the entire abdomen but states that this is baseline for her since she had her intra-abdominal surgery. She does have reproducible discomfort with palpation of her bilateral low back. Urinalysis was unremarkable. She has no leukocytosis or significant anemia. Upon reevaluation of the patient, she felt even more comfortable stating that she believes her anxiety may have gotten the best of her. I have asked the patient to follow-up with her PCP for recheck later today if she has persistent low back pain and certainly if she develops any increased intra-abdominal pain. Impression Primary Impression: Low back pain Scribe Attestation The scribe's documentation has been prepared under my direction and personally reviewed by me in its entirety. I confirm that the note above accurately reflects all work, treatment, procedures, and medical decision making performed by me. Departure Information Dispostion Home / Self-Care Referrals Lisandro Brambila M.D. (PCP) Forms HOME CARE DOCUMENTATION FORM, IMPORTANT VISIT INFORMATION, WORK / SCHOOL INSTRUCTIONS Patient Instructions My [facility] Additional Instructions Rest. Take tylenol for pain. Return to the ER for worsening back pain or abdomninal pain Return to the ER for fevers, bloody stool, or diarrhea Problem Qualifiers Primary Impression: Low back pain Chronicity: acute Back pain laterality: bilateral Sciatica presence: without sciatica Qualified Codes: M54.5 - Low back pain
== END 2018-03-24 03:08 | disposition home or self-care (01) ==
LOC: C.EDB 01:14
DX: M54.5 Low back pain (principal); G89.29 Other chronic pain; R58 Hemorrhage, not elsewhere classified; Z33.1 Pregnant state, incidental

== ENCOUNTER 2021-06-10 20:35 | Observation (INO) ==
[2021-06-10] MEDS ORDERED: SODIUM CHLORIDE 0.9% 500 ML IV STA (21:15)
[2021-06-10] MEDS ORDERED: MoRPHine SULFATE 2 MG/ML CARP IV STA ×2 (21:19→23:15)
[2021-06-10] MEDS ORDERED: ONDANSETRON INJ 2 MG/ML 2 ML VIAL IV STA (21:19)
[2021-06-10 21:33] LABS: Pregnancy Test, Urine Negative (Negative)
[2021-06-10 21:35] LABS: Appearance Urine Clear (Clear); Bacteria Urine Automated Negative (Negative); Bilirubin Urine Negative (Negative); Blood Urine Trace (Negative); Color Urine Yellow; Epithelial Cell Urine Auto >30 /lpf (0-5); Glucose Urine UA Negative (Negative); Ketones Urine Negative (Negative); Leukocyte Esterase Urine Negative (Negative); Nitrite Urine Negative (Negative); Protein Urine Negative (Negative); RBC Urine Automated 0-4 /hpf (0-4); Specific Gravity Urine 1.006 (1.000-1.030); Urobilinogen Urine Negative (Negative); pH Urine 6.5 (4.5-7.5)
--- NOTE | 2021-06-10 21:39 | Emergency Department Note ---
History of Present Illness General Chief complaint: Abdominal Pain Stated complaint: LOWER ABD PAIN,MOVING UPPER,REF BY [facility] Time Seen by Provider: 06/10/21 20:51 Source: patient Mode of arrival: ambulatory Limitations: no limitations History of Present Illness Maximum Pain Intensity: 8 This patient is a 30-year-old female who comes in complaint of abdominal pain in her lower abdomen primarily bilaterally. She said this occurred after intercourse which happened yesterday at 1:30 in the morning. There was nothing unusual about the intercourse. It was vaginal intercourse only. There is no trauma. She said she had no vaginal bleeding or discharge. She had a sharp sensation in her vaginal rectal area and that is gotten a lot better she does has diffuse lower abdominal pain. She has not had the Covid vaccine she is not been lightheaded or dizzy and had no nausea vomiting no chest pain or shortness of breath. No numbness or weakness. She was seen a couple years ago after a similar episode when she had intra-abdominal hemorrhage after intercourse that was thought to be related to bleeding from her spleen. She did go to the OR and had a small area cauterized she was at the time. She denies that she is now. She says that this pain is much lower than the pain before. Home Medications Medication Instructions Recorded Confirmed Type No Known Home Medications 07/13/19 06/10/21 History Allergies Allergy/AdvReac Type Severity Reaction Status Date / Time No Known Allergies Allergy Verified 06/10/21 20:55 Past Med/Surg History Medical History (Updated 06/11/21 @ 01:35 by Lucas Kraus MD) No significant active problems Social History Smoking Status: Former smoker Tobacco Type: Cigarettes Preferred Language: Yoruba Feels Safe at Home: Yes Review of Systems A total of 10 systems reviewed and were otherwise negative Physical Exam Vital Signs Vital Signs - 24 hr 06/10/21 20:46 06/10/21 21:01 06/10/21 21:10 Temperature 36.4 C L 36.7 C Temperature Source Temporal Artery Scan Oral Pulse Rate 98 H 101 H Pulse Rate [Apical] 105 H Pulse Rate from SpO2 Sensor 98 H Pulse Rhythm Pulse Rhythm [Apical] Regular Pulse Strength [Apical] Normal Respiratory Rate 14 19 18 Respiratory Effort / Characteristics Non-Labored Spontaneous Non-Labored Respiratory Depth Normal Normal Blood Pressure 125/83 131/73 Blood Pressure [Right Arm] 131/73 Blood Pressure Mean 97 92 Blood Pressure Mean [Right Arm] 92 Blood Pressure Position [Right Arm] Lying Pulse Oximetry 99 99 98 Oxygen Delivery Method Room Air Room Air Sepsis Recent Fever Within 48 Hours No Sepsis New/Unexplained Change in Mental Status No Sepsis Action Taken by Nursing No Action Required 06/10/21 21:40 06/10/21 21:45 06/10/21 23:13 Temperature Temperature Source Pulse Rate 88 101 H 90 Pulse Rate [Apical] Pulse Rate from SpO2 Sensor 87 89 Pulse Rhythm Regular Pulse Rhythm [Apical] Pulse Strength [Apical] Respiratory Rate 19 19 19 Respiratory Effort / Characteristics Respiratory Depth Blood Pressure 122/77 121/72 Blood Pressure [Right Arm] Blood Pressure Mean 92 88 Blood Pressure Mean [Right Arm] Blood Pressure Position [Right Arm] Pulse Oximetry 99 98 99 Oxygen Delivery Method Room Air Sepsis Recent Fever Within 48 Hours Sepsis New/Unexplained Change in Mental Status Sepsis Action Taken by Nursing 06/11/21 00:30 Temperature Temperature Source Pulse Rate 82 Pulse Rate [Apical] Pulse Rate from SpO2 Sensor 84 Pulse Rhythm Pulse Rhythm [Apical] Pulse Strength [Apical] Respiratory Rate 19 Respiratory Effort / Characteristics Respiratory Depth Blood Pressure 117/79 Blood Pressure [Right Arm] Blood Pressure Mean 91 Blood Pressure Mean [Right Arm] Blood Pressure Position [Right Arm] Pulse Oximetry 99 Oxygen Delivery Method Sepsis Recent Fever Within 48 Hours Sepsis New/Unexplained Change in Mental Status Sepsis Action Taken by Nursing General: Well developed well nourished young female who in no acute distress, breathing comfortably on room air. Normal speech HEENT: Normal cephalic atraumatic. Pupils are equal round and reactive to light. Extraocular movements are intact. Oropharynx is pink with moist mucous membranes. No swelling of the mouth lips or tongue. Neck: Supple with a midline trachea. No meningeal signs or stiffness, no JVD or bruits. No Stridor. Chest: Clear to auscultation bilaterally. No wheezes or rhonchi. No increased work of breathing. Heart: Regular rate and rhythm without murmurs or gallops. Abdomen: Soft, nondistended without rebound guarding or rigidity. She is moderately tender in the lower abdomen bilaterally left greater than right. She has a previous surgical scar midline and has no hernia or tenderness or redness or warmth along the scar Extremities: No cyanosis clubbing or edema. No calf tenderness or assymetry Spine/Back. Non tender to palpation. No CVA tenderness Skin: Good turgor without rashes. Neurologic exam: Cranial nerves two through 12 are intact. Motor and sensation are intact and symmetrical throughout. Course Administered Medications Discontinued Medications Sodium Chloride (Nss) 500 mls @ 999 mls/hr IV .Q31M STA Stop: 06/10/21 21:45 Last Admin: 06/10/21 22:01 Dose: 999 mls/hr Documented by: [id number] Ioversol (Optiray 320 100ml) 94 ml IV ONCE ONE Stop: 06/10/21 22:24 Last Admin: 06/10/21 22:24 Dose: 94 ml Documented by: [id number] Morphine Sulfate (Morphine Sulfate 2 Mg/Ml Carp) 2 mg IV NOW STA Stop: 06/10/21 21:20 Last Admin: 06/10/21 21:57 Dose: 2 mg Documented by: [id number] Morphine Sulfate (Morphine Sulfate 2 Mg/Ml Carp) 2 mg IV NOW STA Stop: 06/10/21 23:16 Last Admin: 06/10/21 23:19 Dose: 2 mg Documented by: [id number] Morphine Sulfate (Morphine Sulfate 2 Mg/Ml Carp) 2 mg IV NOW STA Stop: 06/11/21 00:36 Last Admin: 06/11/21 00:58 Dose: 2 mg Documented by: [id number] Ondansetron HCl (Ondansetron Inj 2 Mg/Ml 2 Ml Vial) 4 mg IV NOW STA Stop: 06/10/21 21:20 Last Admin: 06/10/21 21:57 Dose: 4 mg Documented by: [id number] Medical Decision Making Differential Diagnosis Intra-abdominal hemorrhage, traumatic injuries, ovarian cyst/hemorrhage, splenic hemorrhage, musculoskeletal, infection, UTI, electrolyte or metabolic abnormality, Medical Records Attestation: I reviewed the patient's medical records. Home Medications Current Medication List: was personally reviewed by me Laboratory Data Attestation: I reviewed the patient's lab results. Result diagrams: 06/10/21 21:40 06/10/21 21:40 Lab Results 06/10/21 06/10/21 06/10/21 Range/Units 20:44 21:40 21:40 WBC 8.58 (4.8-10.8) K/uL RBC 3.90 L (4.2-5.4) M/uL Hgb 12.0 (12.0-16.0) g/dL Hct 35.8 L (37-47) % MCV 91.8 (80-100) fL MCH 30.8 (25-34) pg MCHC 33.5 (32-36) g/dL RDW Std Deviation 43.0 (36.4-46.3) fL RDW Coeff of Surendra 12.8 (11.5-14.5) % Plt Count 263 (130-400) K/uL MPV 9.2 (7.4-10.4) fL Immature Gran % (Auto) 0.1 % Neut % (Auto) 57.2 % Lymph % (Auto) 36.0 % [place] % (Auto) 4.8 % Eos % (Auto) 1.4 % Baso % (Auto) 0.5 % Neut # (Auto) 4.91 (1.4-6.5) K/uL Lymph # (Auto) 3.09 (1.2-3.4) K/uL [place] # (Auto) 0.41 (0.11-0.59) K/uL Eos # (Auto) 0.12 (0-0.5) K/uL Baso # (Auto) 0.04 (0-0.2) K/uL Immature Gran # (Auto) 0.01 (0.00-0.02) K/uL Sodium 140 (136-145) mmol/L Potassium 3.5 (3.5-5.1) mmol/L Chloride 108 H (98-107) mmol/L Carbon Dioxide 26 (21-32) mmol/L Anion Gap 6.0 (3-11) BUN 9 (7-18) mg/dl Creatinine 0.68 (0.6-1.2) mg/dl Est Cr Clr Drug Dosing 134.4 ml/min Est GFR ( Amer) 138.0 ml/min Est GFR (Non-Af Amer) 119.0 ml/min BUN/Creatinine Ratio 13.2 (10-20) Glucose 103 H (70-99) mg/dl Calcium 9.0 (8.5-10.1) mg/dl Total Bilirubin 0.3 (0.2-1) mg/dl AST 36 (15-37) U/L ALT 133 H (12-78) U/L Alkaline Phosphatase 145 H (45-117) U/L Total Protein 7.8 (6.4-8.2) gm/dl Albumin 3.7 (3.4-5.0) gm/dl Globulin 4.1 H (2.5-4.0) gm/dl Albumin/Globulin Ratio 0.9 (0.9-2) Lipase 86 (73-393) U/L HCG, Qual Negative (Negative) Urine Color Urine Appearance (Clear) Urine pH (4.5-7.5) Ur Specific [place] (1.000-1.030) Urine Protein (Negative) Urine Glucose (UA) (Negative) Urine Ketones (Negative) Urine Blood (Negative) Urine Nitrite (Negative) Urine Bilirubin (Negative) Urine Urobilinogen (Negative) Ur Leukocyte Esterase (Negative) Urine WBC (Auto) (0-5) /hpf Urine RBC (Auto) (0-4) /hpf U Hyaline Cast (Auto) (0-5) /lpf U Epithel Cells (Auto) (0-5) /lpf Urine Bacteria (Auto) (Negative) Urine Test (Negative) COVID-19 Eval Order 06/10/21 06/10/21 06/11/21 Range/Units Unknown Unknown 00:54 WBC (4.8-10.8) K/uL RBC (4.2-5.4) M/uL Hgb (12.0-16.0) g/dL Hct (37-47) % MCV (80-100) fL MCH (25-34) pg MCHC (32-36) g/dL RDW Std Deviation (36.4-46.3) fL RDW Coeff of Surendra (11.5-14.5) % Plt Count (130-400) K/uL MPV (7.4-10.4) fL Immature Gran % (Auto) % Neut % (Auto) % Lymph % (Auto) % [place] % (Auto) % Eos % (Auto) % Baso % (Auto) % Neut # (Auto) (1.4-6.5) K/uL Lymph # (Auto) (1.2-3.4) K/uL [place] # (Auto) (0.11-0.59) K/uL Eos # (Auto) (0-0.5) K/uL Baso # (Auto) (0-0.2) K/uL Immature Gran # (Auto) (0.00-0.02) K/uL Sodium (136-145) mmol/L Potassium (3.5-5.1) mmol/L Chloride (98-107) mmol/L Carbon Dioxide (21-32) mmol/L Anion Gap (3-11) BUN (7-18) mg/dl Creatinine (0.6-1.2) mg/dl Est Cr Clr Drug Dosing ml/min Est GFR ( Amer) ml/min Est GFR (Non-Af Amer) ml/min BUN/Creatinine Ratio (10-20) Glucose (70-99) mg/dl Calcium (8.5-10.1) mg/dl Total Bilirubin (0.2-1) mg/dl AST (15-37) U/L ALT (12-78) U/L Alkaline Phosphatase (45-117) U/L Total Protein (6.4-8.2) gm/dl Albumin (3.4-5.0) gm/dl Globulin (2.5-4.0) gm/dl Albumin/Globulin Ratio (0.9-2) Lipase (73-393) U/L HCG, Qual (Negative) Urine Color Yellow Urine Appearance Clear (Clear) Urine pH 6.5 (4.5-7.5) Ur Specific [place] 1.006 (1.000-1.030) Urine Protein Negative (Negative) Urine Glucose (UA) Negative (Negative) Urine Ketones Negative (Negative) Urine Blood Trace H (Negative) Urine Nitrite Negative (Negative) Urine Bilirubin Negative (Negative) Urine Urobilinogen Negative (Negative) Ur Leukocyte Esterase Negative (Negative) Urine WBC (Auto) 1-5 (0-5) /hpf Urine RBC (Auto) 0-4 (0-4) /hpf U Hyaline Cast (Auto) 1-5 (0-5) /lpf U Epithel Cells (Auto) >30 H (0-5) /lpf Urine Bacteria (Auto) Negative (Negative) Urine Test Negative (Negative) COVID-19 Eval Order Covid19 at [facility] Imaging Data Attestation: I personally reviewed and interpreted this imaging study as follows: Radiologist's Impression: CT of the abdomen and pelvis with contrast: Left adnexal cystic lesion measuring 4.3 cm. There is female peritoneum within the left adnexa. Normal appendix. GI tract unremarkable. Remainder of the organs are unremarkable. Ultrasound of the pelvis: Left adnexal complex cyst. Favored to represent a hemorrhagic cyst measuring 4.6 x 3.9 x 2.9 cm. Blood flow present to the left ovary. No torsion. Hematoma within the left adnexa measuring 5.6 x 4.2 x 7.3 cm. Hemoperitoneum is also present within the cul-de-sac. Normal uterus and endometrial complex. Right ovary not visualized. MDM Narrative This patient comes in as described above. 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 She has abdominal pain that is been going on since yesterday. This happened after intercourse. She has a history of having a similar episode in t he past which resulted in a significant hemoperitoneum which was thought related to bleeding from her spleen that was cauterized. She has had no trouble since then. She is on no blood thinners. She is hemodynamically stable. Denies . I did a urine and it was negative. IV access established and she was hydrating with IV normal saline bolus. she was given morphine 2 mg IV and Zofran 4 mg IV. I did order i-STAT labs and worked quickly to get her over to the CAT scan. Her hemoglobin is stable. She has no electrolyte or metabolic abnormalities. She has nothing to suggest liver , gallbladder, or pancreas disease. CAT scan showed normal organs with the exception of a left adnexal cyst measuring 4.3 cm with some he moved to her peritoneum within the left adnexa. Consider pelvic ultrasound. I did order the pelvic ultrasound. The pelvic ultrasound confirms what appears to be a hemorrhagic ovarian cyst. There is some hemoperitoneum around this and within the pelvis. I did call and talk to radiologist and the hematoma does not extend outside the pelvis there is nothing around the intestines or in the upper abdomen. She did require morphine 2 mg IV x2 additionally. She has no peritonitis. Given her history of hemoperitoneum and bleeding I did discuss case with the on-call [facility] float builder, Dr. Valles, who saw the patient in the ER and will be admitting the patient for observation and hemoglobin checks. The patient and mother were happy with the plan. Given that she was going to stay in the hospital I did order Covid testing as well. Continuous cardiac monitoring: Order was placed in EMR for continuous cardiac monitoring. Upon my interpretation the patient was noted to be sinus tachycardia with a rate of 100. Impression & Plan Hemorrhagic cyst of left ovary, Abdominal pain, Hemoperitoneum, Not currently Discharge Plan Visit Data Chief Complaint: Abdominal Pain Stated Complaint: LOWER ABD PAIN,MOVING UPPER,REF BY [facility] ED Provider: Lucas Kraus Discharge Problem: Hemorrhagic cyst of left ovary, Abdominal pain, Hemoperitoneum, Not currently Forms Stand Alone Forms: My [facility] [employer] Prescriptions Prescriptions: No Action No Known Home Medications RF: 0 Discharge Problem: Abdominal pain Qualifiers: Abdominal location: left lower quadrant Qualified Code(s): R10.32 - Left lower quadrant pain
[2021-06-10 21:53] LABS: Basophils # (auto) 0.04 K/uL (0-0.2); Basophils % (auto) 0.5 %; Eosinophils # (auto) 0.12 K/uL (0-0.5); Eosinophils % (auto) 1.4 %; Hematocrit (blood only) 35.8 % (37-47); Immature Granulocytes # (auto) 0.01 K/uL (0.00-0.02); Immature Granulocytes % (auto) 0.1 %; Lymphocytes # (auto) 3.09 K/uL (1.2-3.4); Mean Corpuscular Hemoglobin 30.8 pg (25-34); Mean Corpuscular Hgb Conc 33.5 g/dL (32-36); Mean Corpuscular Volume 91.8 fL (80-100); Mean Platelet Volume 9.2 fL (7.4-10.4); Monocytes # (auto) 0.41 K/uL (0.11-0.59); Monocytes % (auto) 4.8 %; Neutrophils # (auto) 4.91 K/uL (1.4-6.5); Neutrophils % (auto) 57.2 %; Platelet Count 263 K/uL (130-400); RDW Coefficient of Variation 12.8 % (11.5-14.5); White Blood Count 8.58 K/uL (4.8-10.8)
[2021-06-10 22:20] LABS: Albumin Level 3.7 gm/dl (3.4-5.0); BUN Creatinine Ratio 13.2 (10-20); Creatinine Clr Calc Pharmacy 134.4 ml/min; Potassium 3.5 mmol/L (3.5-5.1)
[2021-06-10 22:23] LABS: Albumin Globulin Ratio 0.9 (0.9-2); Bilirubin,Total 0.3 mg/dl (0.2-1); Globulin 4.1 gm/dl (2.5-4.0); Total Protein 7.8 gm/dl (6.4-8.2)
[2021-06-10] MEDS ORDERED: OPTIRAY 320 100ml IV ONE (22:23)
[2021-06-10 23:10] LABS: Pregnancy Test, Serum Negative (Negative)
[2021-06-11] MEDS ORDERED: MoRPHine SULFATE 2 MG/ML CARP IV STA (00:35)
[2021-06-11] MEDS ORDERED: POLYETHYLENE (MIRALAX) 17 GM PACK PO PRN (00:51)
[2021-06-11] MEDS ORDERED: ACETAMINOPHEN 325 MG TAB PO PRN (00:51)
[2021-06-11] MEDS ORDERED: ZOLPIDEM TARTRATE 5 MG TAB PO PRN (00:51)
[2021-06-11] MEDS ORDERED: ONDANSETRON INJ 2 MG/ML 2 ML VIAL IV PRN (00:51)
[2021-06-11] MEDS ORDERED: MAGNESIUM HYDROXIDE SUSP 30 ML UDC PO PRN (00:51)
[2021-06-11] MEDS: LACTATED RINGER'S 1,000 ML IV SCH ×3 (01:33→11:59)
--- NOTE | 2021-06-11 01:35 | History & Physical Report ---
Date of Service June 11, 2021 Assessment & Plan (1) Lower abdominal pain: 30-year-old -0-1-2 female presenting with postcoital pelvic pain, abdominal pain and ultrasound and CT scan suggesting left-sided pelvic fluid/hematoma. Vital signs stable afebrile H&H stable Clinically seems well and stable We called radiology and they quantified fluid/hematoma in left adnexa is small Left ovarian cyst is most likely hemorrhagic corpus luteum cyst Plan to observe overnight, repeat H&H in the morning and ultrasound in the morning to compare the amount of fluid Patient agrees with plan All questions were answered (2) Pelvic pain: (3) Pelvic fluid collection: (4) Left ovarian cyst: History of Present Illness Primary Care Provider: Lisandro Brambila MD Patient is a 30-year-old -0-1-2 female who presented to ER yesterday morning with left lower quadrant pain, pelvic pain which radiated to her abdomen. Pain started after intercourse which was at 1:30 AM yesterday morning. It was severe and caused her to vomit. It got better after she came to the ER and received IV morphine. Pain is worse when she moves, ambulates. It radiates to lower abdomen, periumbilical area but it has been mainly on left lower quadrant, pelvic area. She denies fever, chills, problem with urination or bowel movements. Patient denies vaginal bleeding, spotting, discharge. She has been with same partner and trying to get for the last 3 years. She denies STD screening. Her last period was in May 22. She gets regular periods every 4 weeks and they have been painful. She is known to me from 2017 when she presented with pelvic pain which radiated to the upper abdomen and her beta hCG was positive. Her CT scan and ultrasound showed large amount of fluid/blood collection. She was taken to the OR by myself and found to have normal ovaries, normal uterus and normal tubes. Blood was oozing from around the spleen. I called general surgeon who came in and performed midline laparotomy and stop the bleeding around spleen. She has follow-up with general surgery since then. Allergies Allergy/AdvReac Type Severity Reaction Status Date / Time No Known Allergies Allergy Verified 06/10/21 20:55 Home Medications Medication Instructions Recorded Confirmed Type No Known Home Medications 07/13/19 06/10/21 History Patient History Medical History (Updated 06/11/21 @ 01:33 by Uvaldo Covington MD) No significant active problems Social History Smoking Status: Former smoker Tobacco Type: Cigarettes Preferred Language: [place]otho Feels Safe at Home: Yes OB History 2 full-term 's and one early miscarriage [employer] History Denies any history of STDs Review of Systems All systems reviewed & are unremarkable except as noted in HPI & below Physical Exam Constitutional: WD/WN, vitals as above well developed and well nourished Patient seems comfortable and talking normally in the bed Gastrointestinal (Abdomen): normal bowel sounds, soft, nontender, no hepatosplenomegaly (There is left lower quadrant tenderness, no rebound, no guarding) Percussion/Palpation: + abdomen tender (Left lower quadrant) Results & Data ([facility]) Vital Signs (Past 12 Hours) Vital Signs Temp Pulse Pulse Resp BP BP Pulse Ox 06/11/21 00:30 82 19 117/79 99 06/10/21 23:13 90 19 121/72 99 06/10/21 21:45 101 H 19 98 06/10/21 21:40 88 19 122/77 99 06/10/21 21:10 36.7 C 105 H 18 131/73 98 06/10/21 21:01 101 H 19 131/73 99 06/10/21 20:46 36.4 C L 98 H 14 125/83 99 Laboratory Results Lab Results 06/10/21 06/10/21 06/10/21 Range/Units 20:44 21:40 21:40 WBC 8.58 (4.8-10.8) K/uL RBC 3.90 L (4.2-5.4) M/uL Hgb 12.0 (12.0-16.0) g/dL Hct 35.8 L (37-47) % MCV 91.8 (80-100) fL MCH 30.8 (25-34) pg MCHC 33.5 (32-36) g/dL RDW Std Deviation 43.0 (36.4-46.3) fL RDW Coeff of Surendra 12.8 (11.5-14.5) % Plt Count 263 (130-400) K/uL MPV 9.2 (7.4-10.4) fL Immature Gran % (Auto) 0.1 % Neut % (Auto) 57.2 % Lymph % (Auto) 36.0 % [place] % (Auto) 4.8 % Eos % (Auto) 1.4 % Baso % (Auto) 0.5 % Neut # (Auto) 4.91 (1.4-6.5) K/uL Lymph # (Auto) 3.09 (1.2-3.4) K/uL [place] # (Auto) 0.41 (0.11-0.59) K/uL Eos # (Auto) 0.12 (0-0.5) K/uL Baso # (Auto) 0.04 (0-0.2) K/uL Immature Gran # (Auto) 0.01 (0.00-0.02) K/uL Sodium 140 (136-145) mmol/L Potassium 3.5 (3.5-5.1) mmol/L Chloride 108 H (98-107) mmol/L Carbon Dioxide 26 (21-32) mmol/L Anion Gap 6.0 (3-11) BUN 9 (7-18) mg/dl Creatinine 0.68 (0.6-1.2) mg/dl Est Cr Clr Drug Dosing 134.4 ml/min Est GFR ( Amer) 138.0 ml/min Est GFR (Non-Af Amer) 119.0 ml/min BUN/Creatinine Ratio 13.2 (10-20) Glucose 103 H (70-99) mg/dl Calcium 9.0 (8.5-10.1) mg/dl Total Bilirubin 0.3 (0.2-1) mg/dl AST 36 (15-37) U/L ALT 133 H (12-78) U/L Alkaline Phosphatase 145 H (45-117) U/L Total Protein 7.8 (6.4-8.2) gm/dl Albumin 3.7 (3.4-5.0) gm/dl Globulin 4.1 H (2.5-4.0) gm/dl Albumin/Globulin Ratio 0.9 (0.9-2) Lipase 86 (73-393) U/L HCG, Qual Negative (Negative) Urine Color Urine Appearance (Clear) Urine pH (4.5-7.5) Ur Specific [place] (1.000-1.030) Urine Protein (Negative) Urine Glucose (UA) (Negative) Urine Ketones (Negative) Urine Blood (Negative) Urine Nitrite (Negative) Urine Bilirubin (Negative) Urine Urobilinogen (Negative) Ur Leukocyte Esterase (Negative) Urine WBC (Auto) (0-5) /hpf Urine RBC (Auto) (0-4) /hpf U Hyaline Cast (Auto) (0-5) /lpf U Epithel Cells (Auto) (0-5) /lpf Urine Bacteria (Auto) (Negative) Urine Test (Negative) COVID-19 Eval Order 06/10/21 06/10/21 06/11/21 Range/Units Unknown Unknown 00:54 WBC (4.8-10.8) K/uL RBC (4.2-5.4) M/uL Hgb (12.0-16.0) g/dL Hct (37-47) % MCV (80-100) fL MCH (25-34) pg MCHC (32-36) g/dL RDW Std Deviation (36.4-46.3) fL RDW Coeff of Surendra (11.5-14.5) % Plt Count (130-400) K/uL MPV (7.4-10.4) fL Immature Gran % (Auto) % Neut % (Auto) % Lymph % (Auto) % [place] % (Auto) % Eos % (Auto) % Baso % (Auto) % Neut # (Auto) (1.4-6.5) K/uL Lymph # (Auto) (1.2-3.4) K/uL [place] # (Auto) (0.11-0.59) K/uL Eos # (Auto) (0-0.5) K/uL Baso # (Auto) (0-0.2) K/uL Immature Gran # (Auto) (0.00-0.02) K/uL Sodium (136-145) mmol/L Potassium (3.5-5.1) mmol/L Chloride (98-107) mmol/L Carbon Dioxide (21-32) mmol/L Anion Gap (3-11) BUN (7-18) mg/dl Creatinine (0.6-1.2) mg/dl Est Cr Clr Drug Dosing ml/min Est GFR ( Amer) ml/min Est GFR (Non-Af Amer) ml/min BUN/Creatinine Ratio (10-20) Glucose (70-99) mg/dl Calcium (8.5-10.1) mg/dl Total Bilirubin (0.2-1) mg/dl AST (15-37) U/L ALT (12-78) U/L Alkaline Phosphatase (45-117) U/L Total Protein (6.4-8.2) gm/dl Albumin (3.4-5.0) gm/dl Globulin (2.5-4.0) gm/dl Albumin/Globulin Ratio (0.9-2) Lipase (73-393) U/L HCG, Qual (Negative) Urine Color Yellow Urine Appearance Clear (Clear) Urine pH 6.5 (4.5-7.5) Ur Specific [place] 1.006 (1.000-1.030) Urine Protein Negative (Negative) Urine Glucose (UA) Negative (Negative) Urine Ketones Negative (Negative) Urine Blood Trace H (Negative) Urine Nitrite Negative (Negative) Urine Bilirubin Negative (Negative) Urine Urobilinogen Negative (Negative) Ur Leukocyte Esterase Negative (Negative) Urine WBC (Auto) 1-5 (0-5) /hpf Urine RBC (Auto) 0-4 (0-4) /hpf U Hyaline Cast (Auto) 1-5 (0-5) /lpf U Epithel Cells (Auto) >30 H (0-5) /lpf Urine Bacteria (Auto) Negative (Negative) Urine Test Negative (Negative) COVID-19 Eval Order Covid19 at [facility]
[2021-06-11] MEDS: ACETAMINOPHEN 1,000 MG/100 ML VIAL IV PRN ×2 (01:56→11:23)
[2021-06-11] MEDS: MoRPHine SULFATE 2 MG/ML CARP IV PRN ×3 (04:26→12:05)
[2021-06-11 06:45] LABS: Basophils # (auto) 0.03 K/uL (0-0.2); Basophils % (auto) 0.4 %; Eosinophils # (auto) 0.14 K/uL (0-0.5); Eosinophils % (auto) 1.6 %; Hematocrit (blood only) 34.6 % (37-47); Hemoglobin 11.2 g/dL (12.0-16.0); Immature Granulocytes # (auto) 0.01 K/uL (0.00-0.02); Immature Granulocytes % (auto) 0.1 %; Lymphocytes % (auto) 35.2 %; Mean Corpuscular Hemoglobin 30.4 pg (25-34); Mean Corpuscular Hgb Conc 32.4 g/dL (32-36); Mean Corpuscular Volume 93.8 fL (80-100); Mean Platelet Volume 9.5 fL (7.4-10.4); Monocytes # (auto) 0.51 K/uL (0.11-0.59); Neutrophils # (auto) 4.84 K/uL (1.4-6.5); Neutrophils % (auto) 56.7 %; Platelet Count 259 K/uL (130-400); RDW Coefficient of Variation 12.8 % (11.5-14.5); RDW Standard Deviation 44.2 fL (36.4-46.3); Red Blood Count 3.69 M/uL (4.2-5.4); White Blood Count 8.53 K/uL (4.8-10.8)
--- NOTE | 2021-06-11 07:42 | CT Scan Report ---
CT abd pelvis IV con only CLINICAL HISTORY: Lower abdominal pain COMPARISON STUDY: CT scan dated 09/11/2015 TECHNIQUE: The patient was scanned in a dynamic helical fashion during intravenous administration of 94 cc of Optiray 320 A dose lowering technique was utilized adhering to the principles of ALARA. CT DOSE: 376.70 mGy.cm FINDINGS: Lower chest: The heart is normal in size and configuration, without pericardial effusion. The lung ba ses and pleural spaces are clear. Liver: The contrast-enhanced liver is normal in size, contour, and attenuation. There is no intrahepa tic biliary ductal dilatation. The hepatic veins and portal veins are patent. Gallbladder: Unremarkable. Spleen: Normal in size and attenuation. Pancreas: Unremarkable. Adrenal glands: Unremarkable. Kidneys: There is symmetric renal cortical enhancement. The kidneys are normal in size without hydron ephrosis. Bowel: There are no transition zones to indicate bowel obstruction. The appendix appears normal. Ther e is no evidence of acute diverticulitis. There is hyperdense free pelvic fluid, likely hemorrhagic. There is no free air. There is a tiny fat-containing umbilical hernia Peritoneum: There is no intraperitoneal free air or abdominal ascites. There is tiny fat-containing u mbilical hernia Vasculature: The abdominal aorta is normal in course and caliber. Adenopathy: None. Pelvic viscera: There is a 4.6 cm left ovarian cystic lesion with surrounding hyperdense fluid sugges ting hemorrhage. Skeletal structures: No destructive osseous lesions are seen. IMPRESSION: 1. Hyperdense fluid surrounding a 4.6 cm ovarian cystic lesion, likely representing hemorrhage adjace nt to a hemorrhagic cyst. In addition there is hyperdense free pelvic fluid likely representing a sma ll pneumoperitoneum. Pelvic ultrasonography could be obtained in follow-up as deemed appropriate. 2. No evidence of bowel obstruction. No evidence of free air 3. Normal appendix. No evidence of acute diverticulitis. ACT 112: Negative or not required by law. Electronically signed by: Trenton Ding M.D. 06/11/2021 7:41 AM
--- NOTE | 2021-06-11 08:24 | Ultrasound Report ---
US pelvic complete HISTORY: 30 years-old Female eval for ovarian cyst/torsion, hemmorhage acute generalized pelvic pain COMPARISON: CT abdomen pelvis 06/10/2021 TECHNIQUE: Multiple real-time sonographic images of the deep pelvic structures were obtained transabd ominally and transvaginally assessing grayscale appearance, color and spectral flow FINDINGS: TRANSABDOMINAL: Uterus measures 8.5 x 5.3 x 5.5 cm. Endometrium measures 9 mm in thickness. No myometrial mass lesion identified. The left ovary measures 7.1 x 5.5 x 5.5 cm. 5.8 x 5.6 x 5.5 cm left adnexal lesion. Arterial inflow a nd venous outflow is documented within the left ovary. The right ovary is not well seen transabdomina lly. TRANSVAGINAL: Endometrium measures 1.1 cm in thickness. Trace free pelvic fluid. The left ovary measures 6.5 x 5.8 x 5.5 cm. Complex 3.9 x 2.9 x 5.6 cm cystic lesion with peripheral flow. Additionally, there is a left adnexal lesion adjacent to the left ovary measuring 5.6 x 5.2 x 7 .3 cm. Arterial inflow and venous outflow documented within left ovary. The right ovary is not diagno stically visualized. IMPRESSION: 1. Complex cyst of the left ovary measures 4.6 cm. Additional 7.3 cm left adnexal lesion suggestive o f blood products versus hemorrhagic cyst. 2. No ovarian torsion. 3. Trace free pelvic fluid. 4. Nonvisualization of the right ovary. ACT 112: Negative or not required by law. The above report was generated using voice recognition software. It may contain grammatical, syntax o r spelling errors. Electronically signed by: Franco Kim M.D. 06/11/2021 8:22 AM
--- NOTE | 2021-06-11 11:35 | Ultrasound Report ---
US pelvic complete HISTORY: 30 years-old Female same acute generalized pelvic pain COMPARISON: 06/10/2021 TECHNIQUE: Multiple real-time sonographic images of the deep pelvic structures were obtained transabd ominally and transvaginally assessing grayscale appearance, color and spectral flow FINDINGS: TRANSABDOMINAL: Unremarkable appearance of the uterus and endometrium which measures 8 mm in thickness. Complex free pelvic fluid redemonstrated. Arterial inflow to document within the left ovary. Complex cystic left o varian structure is again noted in addition to a complex left adnexal collection measuring 5.1 x 5.3 x 3.1 cm, previously measured at 5.6 x 5.2 x 7.3 cm. TRANSVAGINAL: Uterus measures 9.5 x 5.5 x 5.8 cm. No myometrial mass lesion. Endometrium is unremarkable, 8 mm in t hickness. Subluxation of the right ovary. The left ovary measures 5.5 x 4.2 x 5.5 cm. Arterial inflow within le ft ovary is documented. Complex cyst of the left ovary measuring 4.2 x 2.7 x 4.7 cm appears unchanged . IMPRESSION: 1. 4.7 cm complex hemorrhagic cyst of the left ovary is unchanged. No ovarian torsion. 2. Complex free pelvic fluid with additional probable blood products within the left adnexal distribu tion, stable to slightly decreased from comparison. 3. Unremarkable sonographic appearance of the uterus and endometrium. 4. Nonvisualization of the right ovary. ACT 112: Negative or not required by law. The above report was generated using voice recognition software. It may contain grammatical, syntax o r spelling errors. Electronically signed by: Franco Kim M.D. 06/11/2021 11:34 AM
[2021-06-11] MEDS ORDERED: IBUPROFEN 600 MG TAB PO PRN (14:40)
[2021-06-11] MEDS ORDERED: oxyCODONE/ACETAMINOPHEN 5mg/325mg TAB PO PRN (14:40)
--- NOTE | 2021-06-11 14:43 | Gynecologic Progress Note ---
Date of Service June 11, 2021 Assessment & Plan (1) Lower abdominal pain: 30-year-old -0-1-2 female presenting with postcoital pelvic pain, abdominal pain and ultrasound and CT scan suggesting left-sided pelvic fluid/hematoma. Vital signs stable afebrile H&H stable Reviewed repeat sono today Unchanged Pt disch home with instructions (2) Pelvic pain: (3) Pelvic fluid collection: (4) Left ovarian cyst: Admission and Anticipated Discharge Date Admission Date: June 11, 2021 Review of Systems Review of Systems: All systems reviewed & are unremarkable except as noted in HPI & below Physical Exam Constitutional: WD/WN, vitals as above Eyes: PERRL, conjunctivae normal, anicteric sclerae ENMT: external ear and nose normal, oropharynx normal Neck: trachea midline, no thyromegaly Respiratory: normal respiratory effort, lungs clear to auscultation Cardiovascular: RRR, no murmur, no edema Chest (Breasts): normal inspection/palpation of breasts Gastrointestinal (Abdomen): normal bowel sounds, soft, nontender, no hepatosplenomegaly Musculoskeletal: no cyanosis or clubbing, extremities motor strength 5/5 Skin: + incision (Incision clean,dry and intact) Neurologic: patellar DTR's 2+ bilat, sensation intact Psychiatric: A+Ox3, euthymic affect Genitourinary: no vaginal lesions, no adnexal mass Lymphatic: no cervical or axillary lymphadenopathy Results & Data ([facility]) Vital Signs (Past 12 Hours) Vital Signs Temp Pulse Pulse Resp BP BP BP 06/11/21 11:35 36.9 C 76 18 101/67 06/11/21 07:53 36.9 C 82 18 110/63 06/11/21 04:58 37 C 77 16 119/83 06/11/21 04:05 37.0 C 89 18 117/76 06/11/21 03:00 86 15 116/69 Pulse Ox Pulse Ox 06/11/21 11:35 98 98 06/11/21 07:53 97 97 06/11/21 04:58 98 06/11/21 04:05 99 06/11/21 03:00 100
--- NOTE | 2021-06-12 06:03 | Discharge Summary (DS) ---
DATE OF DISCHARGE: 06/11/2021. HISTORY OF PRESENT ILLNESS AND HOSPITAL COURSE: This is a 30-year-old G3, P2, who was admitted by Dr Lidia Valles on 06/10/2021 for abdominal pain. This pain was post-coital. Ultrasound showed possibly rup tured hemorrhagic cyst on the left side. Vitals were stable. She was admitted, given IV fluids, and pain managed with narcotics. This morning, ultrasound was repeated. There is no significant change . Labs are stable. The patient is stable. Decision has therefore been made to discharge the patien t home with p.o. narcotics and will follow up in the office. Past medical history, surgical history, social history, and family history have all been reviewed. The patient is discharged home in stable condition. Job ID: [id number]
== END 2021-06-11 17:35 | disposition home or self-care (01) ==
LOC: 4S2 20:35 → ED 20:35 → 4S2 06-11 03:59